=== PATIENT | male | born 1940 | race Caucasian/White ===

== ENCOUNTER 2017-05-11 13:11 | Emergency (ER) | payer MEDICARE, SELFPAY ==
[2017-05-11 13:13] VITALS: BP 150/80; PULSE 90; RESP 16; TEMP 36.7; O2SAT 98; BMI 26.6
--- NOTE | 2017-05-11 13:37 | RAD_ITS ---
STUDY: X-RAY CHEST REASON FOR EXAM: Male, 76 years old. Chest pain. TECHNIQUE: Single AP portable view of the chest. COMPARISON: Comparison is made with prior examination dated May 19, 2012. FINDINGS: EKG electrodes are seen. Hyperinflation. Scattered calcified granulomas. There is no demonstrated pleural abnormality. There is borderline cardiomegaly. Normal mediastinum and maría elena. Normal visualized pulmonary arteries. There is atherosclerotic calcification of the aortic arch with tortuosity. Normal visualized thoracic spine. Normal visualized ribs, clavicles, and shoulders. There is no demonstrated abnormality of the visualized soft tissue structures of the upper abdomen. RAD/Chest 1 View (Portable) IMPRESSION: Hyperinflation. No acute abnormality is seen. Electronically Signed: Matthias Brown MD at 14:00 EST Tel [phone], Service support ,
--- NOTE | 2017-05-11 13:37 | EKG12_ITS ---
Test Reason : CP Blood Pressure : / mmHG Vent. Rate : 089 BPM Atrial Rate : 089 BPM P-R Int : 152 ms QRS Dur : 082 ms QT Int : 372 ms P-R-T Axes : 068 007 069 degrees QTc Int : 452 ms Normal sinus rhythm Low voltage QRS (LIMB LEADS) Nonspecific ST abnormality Abnormal ECG Confirmed by TEE RM, NIDIA ([id number]), managing editor ELAINA COYLE ([id number] on 05/14/2017 1:07:50 PM Referred By: NIESHA Confirmed By:NIDIA OLIVEIRA MD
[2017-05-11 13:45] LABS: Absolute Lymphocyte Count 1.35 X10^3/ul (0.83-4.51); Absolute Neutrophil Count 2.8 X10^3/uL (2.0-7.7); Basophil# 0.08 X10^3/uL; Basophil% 1.6 % (0-1); Eosinophil# 0.14 X10^3/uL; Eosinophils% 2.9 % (0-5); Hematocrit 40.9 % (40-54); Hemoglobin 14.2 g/dl (13.0-16.5); Lymphocyte # 1.35 X10^3/ul (4.0); Lymphocyte % 27.6 % (19-41); Mean Corp Hgb Conc 34.7 g/gl (32-36); Mean Corpuscular Hgb 33.5 pg (27.0-32.0); Mean Corpuscular Volume 96.5 fL (80-94); Mean Platelet Vol. 10.8 fl (6.2-12.0); Monocyte# 0.55 X10^3/uL; Monocyte% 11.2 % (0-10); Neutrophil # 2.76 X10^3/uL (2.7-7.7); Neutrophil % 56.5 % (47-70); POSITIVE COUNT NO; POSITIVE DIFFERENTIAL NO; POSITIVE MORPHOLOGY NO; Platelet Count 229 K/mm3 (150-450); RBC Distribution Width CV 12.9 % (11.6-14.6); RBC Distribution Width SD 44.5 fl (35.1-43.9); Red Blood Count 4.24 M/mm3 (4.6-6.2); White Blood Count 4.9 K/mm3 (4.4-11.0)
--- NOTE | 2017-05-11 13:53 | ED.VISSUMM ---
- ER Visit Summary Date of Service: 05/11/17 Chief Complaint: Chest and left shoulder discomfort History of Present Illness: The patient is a 76 M last week he has had intermittent chest pain and left shoulder discomfort. Patient states the chest pain is not associated with exertion. Really not shortness of breath he has been more tired lately. He has no cardiac history. He states he has never had a cardiac cath. He has chronic shoulder pain for last 1-2 months. He says he has trouble raising his left arm over his shoulder. He has never had shoulder surgery denies any falls or trauma. 3 weeks ago or so he had influenza he said he was on prednisone at that time for wheezing and is at that time his shoulder actually felt better. He denies any hemoptysis. He denies any pleuritic chest pain. No calf pain or swelling. Physical Examination: Well-appearing older male. Vital signs are stable afebrile. Pulse ox percent on 2 L no hypoxia. HEENT exam unremarkable TMs normal. Posterior pharynx normal. Neck nontender. Lungs clear to auscultation bilaterally. Heart regular rate and rhythm no murmur. Chest wall is reproducible chest wall tenderness along the upper left chest and along the left shoulder. There is no ecchymosis or bruising. No deformity. No redness or warmth. No crepitance or subcu air. Abdomen is soft and nontender. Normal bowel sounds no peritoneal signs. He is moving all 4 extremities. He is unable to lift his left arm above his shoulder. Bilateral hands and feet are neurovascularly intact. Calves are nontender without cords or edema. Neurologically is awake and alert without focal deficits. Test Results: BC normal. BMP normal. Troponin normal. EKG sinus rhythm rate of 89 no acute abnormality. Chest x-ray chronic changes no acute process read both by myself the radiologist. Emergency Department Course and Treatment: Patient will undergo cardiac workup. He does have some reproducible chest wall pain which may be the cause of his symptoms. He also has chronic musculoskeletal shoulder pain. Treatment Plan: Javier exam at 1537 patient is doing well. He clearly has reproducible left shoulder pain. He has chronic shoulder pain history. He and I discussed getting an joint injection which she has had in the past but has not had for quite a long time. He preferred oral steroids over a steroid injection. He will be placed on prednisone 40 mg a day for 1 week. Disposition: discharge Impression: Acute chest wall pain and acute on chronic left shoulder pain This note was generated with [employer] dictation software. It may contain incorrect words, spelling, and punctuation that were not noted in review of the chart prior to signing ED Disposition - Plan for ED Patient: Chief Complaint: Chest Pain Referrals: Elmira Malcolm DO [STAFF PHYSICIAN] -
[2017-05-11 14:00] VITALS: BP 128/76; PULSE 72; RESP 16; O2SAT 97
[2017-05-11 14:07] LABS: Anion Gap 7 (5-15); BUN 14 mg/dL (7-18); Calcium,Total 8.1 mg/dL (8.5-10.1); Chloride 109 mmol/L (98-107); Creatinine, Serum 0.94 mg/dL (0.70-1.30); EST Glomerular Filtration Rate 83 mL/min (>60); Est Glom Filt Rate - Afr Amer 101 mL/min (>60); Estimated Creatinine Clearance 56.86 ml/min; Glucose 109 mg/dL (74-106); Potassium 3.6 mmol/L (3.5-5.1); Sodium Level 141 mmol/L (136-145)
[2017-05-11 15:00] VITALS: BP 139/78; PULSE 67; RESP 14; O2SAT 98
--- NOTE | 2017-05-11 15:42 | ED.DEP ---
ED Disposition - Plan for ED Patient: Disposition: Home or Assisted Living Chief Complaint: Chest Pain Instructions: ED Chest Pain Atypical Unkn Cause Prescriptions: Prednisone [Deltasone] 40 mg PO DAILY #10 tab Referrals: Elmira Malcolm DO [STAFF PHYSICIAN] - 1 Week if not improving Additional Instructions: Ice to chest wall and left shoulder. Continue current pain medications. Prednisone for inflammation in your shoulder. If not improving he may need a shoulder joint injection.
[2017-05-11 15:56] VITALS: BP 142/82; PULSE 70; RESP 16; O2SAT 97
== END 2017-05-11 15:57 | disposition home or self-care (01) ==
PROVIDERS: Emergency Provider Emergency Medicine; Family Provider Internal Medicine; PCP Internal Medicine
DX: R07.89 Other chest pain (principal); M25.512 Pain in left shoulder; G89.29 Other chronic pain; R06.00 Dyspnea, unspecified; I10 Essential (primary) hypertension; Z87.891 Personal history of nicotine dependence
CPT/HCPCS: 71045; 80048; 84484; 85025; 93005; 99284; A4216

== ENCOUNTER 2018-08-09 23:13 | Observation (INO) | payer MEDICARE, SELFPAY ==
[2018-08-09 23:15] VITALS: BP 146/112; PULSE 95; RESP 26; TEMP 36.4; O2SAT 98; BMI 27.8
[2018-08-09 23:40] VITALS: O2SAT 99
--- NOTE | 2018-08-09 23:40 | EKG12_ITS ---
Test Reason : SHORTNESS OF BREATH Blood Pressure : / mmHG Vent. Rate : 070 BPM Atrial Rate : 070 BPM P-R Int : 162 ms QRS Dur : 084 ms QT Int : 426 ms P-R-T Axes : 070 003 044 degrees QTc Int : 460 ms Normal sinus rhythm Normal ECG Confirmed by SHALONDA FRANCOIS ([id number]), make up editor JAGUAR MUKHERJEE ([id number]) on 08/12/2018 1:56:01 PM Referred By: Marcy Whittington Confirmed By:SHALONDA FRANCOIS
[2018-08-09 23:55] VITALS: BP 140/84; PULSE 69; RESP 16; O2SAT 99
[2018-08-09] MEDS: Aspirin 81 MG TAB.CHEW 324 MG PO (23:56)
[2018-08-09 23:57] VITALS: O2SAT 99
[2018-08-10] VITALS (11 sets, daily range): BP systolic 117–147; BP diastolic 63–77; PULSE 59–84; RESP 15–16; TEMP 36.4–37.1; O2SAT 95–98; BMI 26.8
[2018-08-10 00:13] LABS: Absolute Lymphocyte Count 1.86 X10^3/ul (0.83-4.51); Absolute Neutrophil Count 3.7 X10^3/uL (2.0-7.7); Basophil# 0.06 X10^3/uL; Basophil% 0.9 % (0-1); Eosinophil# 0.34 X10^3/uL; Eosinophils% 5.2 % (0-5); Hematocrit 41.9 % (40-54); Hemoglobin 14.3 g/dl (13.0-16.5); Lymphocyte # 1.86 X10^3/ul (4.0); Lymphocyte % 28.3 % (19-41); Mean Corp Hgb Conc 34.1 g/gl (32-36); Mean Corpuscular Volume 93.7 fL (80-94); Mean Platelet Vol. 10.1 fl (6.2-12.0); Monocyte# 0.56 X10^3/uL; Monocyte% 8.5 % (0-10); Neutrophil # 3.72 X10^3/uL (2.7-7.7); Neutrophil % 56.6 % (47-70); POSITIVE COUNT NO; POSITIVE DIFFERENTIAL NO; POSITIVE MORPHOLOGY NO; Platelet Count 284 K/mm3 (150-450); RBC Distribution Width CV 12.9 % (11.6-14.6); Red Blood Count 4.47 M/mm3 (4.6-6.2); White Blood Count 6.6 K/mm3 (4.4-11.0)
[2018-08-10 00:29] LABS: Anion Gap 8 (5-15); BUN 7 mg/dL (7-18); BUN/Creat Ratio 8.9 RATIO (10-20); Calcium,Total 7.7 mg/dL (8.5-10.1); Chloride 103 mmol/L (98-107); Creatinine, Serum 0.79 mg/dL (0.70-1.30); EST Glomerular Filtration Rate 102 mL/min (>60); Est Glom Filt Rate - Afr Amer 123 mL/min (>60); Glucose 54 mg/dL (74-106); Sodium Level 137 mmol/L (136-145)
--- NOTE | 2018-08-10 00:30 | ED.RN ---
DR. LAND INFORMED THAT WHEN PT WAS PUTTING ON GOWN THIS NURSE NOTICED A LARGE DARK BRUISE EXTENDING FROM UNDER RIGHT AXILLA TO WAIST. PT DENIED INJURY. DR. LAND WITH PT AT THIS TIME TO EXAM PT.
--- NOTE | 2018-08-10 00:33 | CT_ITS ---
STUDY: CT ABDOMEN AND PELVIS WITH CONTRAST REASON FOR EXAM: Male, 78 years old. Injury, bruising RADIATION DOSAGE (If Supplied By Facility): CTDIvol = ( 12.72 ) mGy, DLP = ( 1048.24 ) mGycm TECHNIQUE: Transaxial images were obtained from the dome of the diaphragm to the symphysis pubis without oral contrast. 100ML IV Isovue 300 was administered. Sagittal and coronal images were reconstructed. Individualized dose optimization techniques were used for this CT. COMPARISON: Comparison July 23, 2006 CT abdomen FINDINGS: The visualized lung bases are unremarkable. The visualized portions of the heart are within normal limits. There is mild intra and extra hepatic ductal dilatation status post cholecystectomy. There are surgical clips in the gallbladder fossa consistent with a prior cholecystectomy. There are multiple benign calcified granulomata of the spleen. Normal pancreas. Normal bilateral adrenal glands. There is mild right pelviectasis is a punctate stone in the left kidney there is minimal left pelviectasis. There is a either new visualized either hernia or diverticulum of the distal esophagus. This is new since prior study. Collectively the stomach within the hiatus measures approximately 4 x 2 cm. There are distended loops of small bowel present some with mild wall thickening in the left upper quadrant. There is tortuosity in the abdomen with small bowel that is similar to prior study with greater distention in the right upper quadrant. The largest of which are in the right to midline abdomen with extensive tortuosity. There is moderate stool in the colon. There is a midline somewhat high riding mobile appearing cecum. The appendix is visualized and appears normal. Aorta is partially calcified. There is calcification of the bilateral renal arteries Normal inferior vena cava. Normal retroperitoneum. There is a thick walled appearance of the bladder. The bladder measures up to 5.5 mm. There are prostatic calcifications. Normal abdominal wall. There is degenerative change in the cervical spine. There is a broad disc bulge L4-L5 with mild neural foramina narrowing facet arthropathy. At L5-S1 there is a minimal broad disc bulge with mild neural foramina narrowing no significant central stenosis. CT/Abdomen/Pelvis W IV Cont ONLY IMPRESSION: There is a pattern of multiple distended loops of small bowel some with wall thickening. Findings suspicious for small bowel ileus possibly related to enteritis and/or potentially early small bowel obstruction. Mild to moderate constipation. Floppy or mobile cecum suggested. Likely contributing to the tortuosity of the small bowel loops. Wall thickening of the bladder consider cystitis cannot entirely exclude atypia. Intra and extra hepatic duct dilatation status post cholecystectomy. New hiatal hernia and/or potentially a diverticulum within the distal esophagus since prior study July 23, 2006. Electronically Signed: Sola Llamas MD at 1:44 EDT Tel , Service support ,
--- NOTE | 2018-08-10 00:33 | CT_ITS ---
We are attempting to reach an attending provider to discuss findings. An addendum with communication details will be sent when the communication is complete. STUDY: CT CHEST WITH CONTRAST REASON FOR EXAM: Male, 78 years old. Right-sided bruising, injury RADIATION DOSAGE (If Supplied By Facility): CTDIvol = ( 12.72 ) mGy, DLP = ( 1048.24 ) mGycm TECHNIQUE: Transaxial imaging was performed following intravenous administration of 100ML IV Isovue 300. Individualized dose optimization techniques were used for this CT. COMPARISON: None. FINDINGS: There are few scattered emphysematous blebs there is no evidence of acute focal consolidation pleural effusion or pneumothorax. There is a calcified granuloma within the right upper lobe periphery. There is no demonstrated pleural abnormality. Normal heart and pericardium. There are a few nonspecific subcentimeter mediastinal lymph nodes. Normal hilar regions. Normal enhanced pulmonary arteries. There is atherosclerotic tortuosity of the aortic arch and descending thoracic aorta. There is mild chronic appearing loss of height at the level of T8. There is visualized right-sided chest wall edema. There is focal hyperdensity within the right-sided latissimus dorsi muscle enlargement. Mild intrahepatic ductal dilatation or gallbladder. There is a hiatal hernia now measuring 2.5 x 4.0 cm new since prior study. CT/Chest WITH Contrast IMPRESSION: Interval visualization of a small to moderate hiatal hernia. This measures approximately 3.5 x 4.0 cm. Evidence of a granulomatous disease. Scattered emphysematous blebs no evidence of focal infiltrate. Mild right chest wall edema. Intramuscular hematoma/age-indeterminate hemorrhage, measuring approximately 4.0 x 2.3 cm, right side latissimus dorsi muscle. Recommend correlation with trauma history. Mild intra and extra hepatic ductal dilatation postoperative change right upper quadrant. Electronically Signed: Sola Llamas MD at 1:31 EDT Tel , Service support ,
[2018-08-10 00:45] LABS: Prothrombin Time (Protime)PT. 13.3 SECONDS (11.7-14.9)
[2018-08-10 00:46] LABS: Partial Thromboplast Time 30.9 Seconds (24.1-36.2)
[2018-08-10] MEDS: Potassium Chloride 10mEq/100mL 10 MEQ/100 ML IV.SOLN. 100 MEQ IV BOLUS ×4 (02:08→06:12)
--- NOTE | 2018-08-10 02:10 | ED.DCSUM_ITS ---
- ER Visit Summary Date of Service: 08/10/18 Chief Complaint: Shortness of breath History of Present Illness: The patient is a 78 M who presents with shortness of breath. He woke with this suddenly from sleep about 30 minutes ago. He felt hot although he was not diaphoretic. He states that he just felt uncomfortable. No chest pain. He had mild nausea without vomiting. He has had some recent cold symptoms with congestion and rhinorrhea. He complains of some pain in his right upper chest and back that is worse with coughing. No vomiting. No diarrhea. Physical Examination: Afebrile initial blood pressure 146/112 vitals otherwise unremarkable Moist mucous membranes Heart regular rate and rhythm Lungs are clear without rales rhonchi wheezes Abdomen soft 2+ radial pulses Alert Test Results: EKG shows normal sinus rhythm at a rate of 70. CBC BMP notable for potassium 3.0. Normal coagulation studies. Troponin negative. CT of the chest shows a hiatal hernia as well as a right latissimus dorsi hemorrhage. CT the abdomen pelvis shows multiple distended loops of small bowel ileus versus small bowel obstruction. Multiple incidental findings as well, see report for details. Emergency Department Course and Treatment: At the time my initial exam patient was fully dressed. Given his initial history I was concerned for potential cardiac etiology and he was given aspirin and laboratory studies EKG and chest x-ray ordered. After the patient was changed she was noted to have bruising along the right chest and right flank. At this point the decision was made to send him for CTs of the chest and abdomen. I was called by radiology with the above findings. Although he does have a latissimus dorsi hemorrhage/hematoma this does not appear to be actively bleeding and he is hemodynamically stable. In regards to his multiple distended loops of small bowel the cause of this is unclear. He does not have vomiting. He has been having some intermittent left upper quadrant abdominal pain for some time. Patient was discussed with the hospitalist and will be admitted. Treatment Plan: [] Disposition: Admit Impression: Latissimus dorsi hematoma Abnormal abdominal CT Hypokalemia This note was generated with [employer] dictation software. It may contain incorrect words, spelling, and punctuation that were not noted in review of the chart prior to signing ED Disposition - Plan for ED Patient: Referrals: Karla Barton MD [Primary Care Provider] -
--- NOTE | 2018-08-10 02:15 | HP.PCM_ITS ---
Problem List (1) Chest pain Status: Acute Qualifiers: Chest pain type: unspecified Qualified Code(s): R07.9 - Chest pain, unspecified (2) Dyspnea Status: Acute Qualifiers: Dyspnea type: unspecified Qualified Code(s): R06.00 - Dyspnea, unspecified (3) Chest wall hematoma Status: Acute Qualifiers: Encounter type: initial encounter Laterality: unspecified laterality Qualified Code(s): S20.219A - Contusion of unspecified front wall of thorax, ini tial encounter (4) HTN (hypertension) Status: Chronic Qualifiers: Hypertension type: essential hypertension Qualified Code(s): I10 - Essential (primary) hypertension (5) Dementia Status: Chronic Qualifiers: Dementia type: unspecified type Dementia behavioral disturbance: without behavioral disturbance Qualified Code(s): F03.90 - Unspecified dementia without behavioral disturbance (6) Anxiety and depression Status: Chronic (7) Former tobacco use Status: Chronic (8) GERD (gastroesophageal reflux disease) Status: Chronic Qualifiers: Esophagitis presence: esophagitis presence not specified Qualified Code(s): K21.9 - Gastro-esophageal reflux disease without esophagitis History of Present Illness Date of Admission: 08/10/18 Chief Complaint: Dyspnea The patient is a 78 y/o M w/ PMHx: EtOH Abuse, HTN, Anxiety and Depression, Former Tobacco use, Dementia Unclear type with unclear behavioral disturbance history, GERD who presents to the [facility] ED on 08/10/18 with very cobbled history of waking early this morning with dyspnea with generalized malaise, not feeling well, states he had had a recent upper respiratory infection but had been improving with then upon ED presentation following evaluation by ED physician onset of some midsternal nonradiating dull aching chest discomfort rated 4 out of 10 with no worsened dyspnea, diaphoresis associated but had had nausea earlier upon awakening which is since resolved. Patient does have a notable staged ecchymoses to the right lateral flank and cannot give a history as to the reason or event causing the bruising. Reviewed CT abdomen and pelvis results with him and he states that he has been told on a prior scan that he had distended loops of bowel and some thickening and denies any recent anorexia, emesis, worsened market abdominal distention or pain. He states he ate a hamburger for dinner the evening prior with no issue. Work-up in the ED included T 97.5, heart rate 95, BP initially 146/112, respiratory rate initially 26, 98% on room air--> improvement to BP 128/77, respiratory rate 16, 96% on room air, unremarkable CBC, unremarkable coags, BMP with potassium 3, glucose 54, troponin less than 0.015, CT chest with interval visualization of a small to moderate hiatal hernia measuring 3.5 x 4.0 cm, evidence of granulomatous disease, scattered emphysematous blebs with no evidence of focal infiltrate, mild chest wall edema, intramuscular hematoma age-indeterminate measuring 4 x 2.3 cm, right sided latissimus dorsi muscle, mild intra-and extrahepatic ductal dilation postoperative change in the right upper quadrant, CT abdomen pelvis with multiple distended loops of small bowel some with wall thickening, suspicious for small bowel ileus versus early small bowel obstruction, mild to moderate constipation, floppier mobile cecum, wall thickening of the bladder, intra-and extrahepatic duct dilatation status post cholecystectomy, no hiatal hernia and or potentially diverticulum within the distal esophagus nonvisualized on prior 2006 study. In the ED patient ministered aspirin 324 mg p.o. x1 and 40 mEq potassium supplementation. Past Medical History Past Medical History (Chronic Problems): Chronic Problems HTN (hypertension) (Chronic) Dementia (Chronic) Anxiety and depression (Chronic) Former tobacco use (Chronic) GERD (gastroesophageal reflux disease) (Chronic) Allergies levofloxacin [From Levaquin] Allergy (Verified 08/09/18 23:14) Vomiting Home Medications: Ambulatory Orders Medication Instructions Recorded Amlodipine [Norvasc] 5 mg PO DAILY 05/11/17 Donepezil HCl 10 mg PO DAILY 05/11/17 Pantoprazole Sodium [Protonix] 40 mg PO DAILY 05/11/17 Surgical History: - - Hiatal hernia repair, cholecystectomy, right ankle surgery. Psychiatric History: Anxiety, Depression Lives: Alone Smoking Status: Former smoker - Patient quit approximately 25 years ago with prior to this 1 pack/day cigarette tobacco use. Tobacco Use: Non-smoker Alcohol: Occasional - Patient notes that he drinks at least a 12 pack of beer weekly and from discussion denies alcohol abuse but suspicions given patient history of falls, cannot give timeline does not recall hurting himself. Drugs: None - *Family History Maternal History Items: - - Patient denies any market maternal or paternal family history including heart disease, diabetes or cancer. Paternal History Items: - - Patient denies any market maternal or paternal family history including heart disease, diabetes or cancer. Review of Systems Constitutional: Reports: Malaise, Weakness, Fatigue. Denies: Chills, Fever, Weight Change HEENT: Denies: Head Aches, Sinus Congestion, Sinus Drainage Cardiovascular: Reports: Chest Pain. Denies: Light Headedness, Orthopnea, Palpitations, Syncope Respiratory: Reports: Shortness of Breath, Shortness of breath at rest. Denies: Cough, Shortness of breath upon exertion, Sputum production, Wheezing Gastrointestinal: Reports: Nausea. Denies: Abdominal Pain, Vomiting Genitourinary: Denies: Dysuria Musculoskeletal: Denies: Joint Pain, Joint Tenderness Skin: Reports: Skin Changes. Denies: Rash, Wounds Neurological: Denies: Numbness, Tingling, Focal weakness Psychiatric: Reports: Anxiety, Depression. Denies: Homicidal Ideations, Suicidal Ideations Hematologic/ Lymphatic: Reports: Easy Bruising, Easy Bleeding VTE Information - Inpt Only VTE Present on Admission: No VTE Mechan Device Prophylaxis: SCD's VTE Pharm Prophylaxis ordered?: Yes Patient Problems: Active and Suspected Problems Dyspnea (Acute) Chest wall hematoma (Acute) Chest pain (Acute) Subjective: Seated upright in ED bed, mildly fatigued, notes chest discomfort at this time 4 out of 10, but appears comfortable and some reproducible discomfort with palpation. Objective: Physical Examination: General: awake, alert, oriented x 3 and cooperative, seated upright in the ED bed, no acute distress, does note some chest discomfort, worsened with palpation of the region. Skin: normal color, turgor, no icterus, cyanosis except notable staged ecchymoses to the right lateral flank/back HEENT: AT/NC, EOMI, PERRLA, mildly dry MM, no carotid bruits or JVD noted. Lungs: Diffusely diminished, greater bilateral bases, moderate effort, no rales, ronchi or wheezing. Heart: Regular rate and rhythm; no gallop, rub audible. Abdomen: soft, NTTP, mildly distended although he notes this is his baseline, normal BS, no HSM; however, habitus makes examination difficult. Extremities: no cyanosis, clubbing, or edema. Neurological: patient awake, alert, oriented x 3 but does have underlying dementia noted; cognitive function suspect baseline intact; pupils equally reactive to light and accomodation; cranial nerves II-XII grossly normal, moving all 4 extremities, no focal deficits, strength moderately global degree secondary to acute presentation. Psychiatric: affect appears fatigued, no acute evidence of depressive or anxiety feelings. - Physical Exam Vital Signs Temp Pulse Resp BP Pulse Ox 97.5 F L 84 16 128/77 H 96 08/09/18 23:15 08/10/18 01:49 08/10/18 01:49 08/10/18 01:49 08/10/18 01:49 Oxygen Delivery Method Room Air Weight: 161 lb 13.109 oz Body Mass Index (BMI) 27.8 Laboratory Tests Past 24 Hrs 08/09/18 08/09/18 08/10/18 23:59 23:59 00:00 WBC 6.6 RBC 4.47 L Hgb 14.3 Hct 41.9 MCV 93.7 MCH 32.0 MCHC 34.1 RDW 12.9 RDW Differential 43.0 Plt Count 284 MPV 10.1 Immature Gran % (Auto) 0.500 Neut % (Auto) 56.6 Lymph % (Auto) 28.3 [place] % (Auto) 8.5 Eos % (Auto) 5.2 H Baso % (Auto) 0.9 Absolute Neuts (auto) 3.7 Absolute Lymphs (auto) 1.86 Total Counted Not Reportable PT 13.3 INR 1.0 APTT 30.9 Sodium 137 Potassium 3.0 L Chloride 103 Carbon Dioxide 26.0 Anion Gap 8 BUN 7 Creatinine 0.79 Estim Creat Clear Calc 51.80 Est GFR (MDRD) Af Amer 123 Est GFR (MDRD) Non-Af 102 BUN/Creatinine Ratio 8.9 L Glucose 54 L Calcium 7.7 L Troponin I < 0.015 Assessment/Plan All Active Problems Dyspnea (Acute) Chest wall hematoma (Acute) Chest pain (Acute) The patient is a 78 y/o M w/ PMHx: EtOH Abuse, HTN, Anxiety and Depression, Former Tobacco use, Dementia Unclear type with unclear behavioral disturbance history, GERD who presents to the [facility] ED on 08/10/18 with very cobbled history of waking early this morning with dyspnea with generalized malaise, not feeling well, states he had had a recent upper respiratory infection but had been improving with then upon ED presentation following evaluation by ED physician onset of some midsternal nonradiating dull aching chest discomfort rated 4 out of 10 with no worsened dyspnea, diaphoresis associated but had had nausea earlier upon awakening which is since resolved. (1) Dyspnea, Chest Pain: Work-up in the ED included T 97.5, heart rate 95, BP initially 146/112, respiratory rate initially 26, 98% on room air--> improvement to BP 128/77, respiratory rate 16, 96% on room air, unremarkable CBC, unremarkable coags, BMP with potassium 3, glucose 54, troponin less than 0.015, CT chest with interval visualization of a small to moderate hiatal hernia measuring 3.5 x 4.0 cm, evidence of granulomatous disease, scattered emphysematous blebs with no evidence of focal infiltrate, mild chest wall edema, intramuscular hematoma age-indeterminate measuring 4 x 2.3 cm, right sided latissimus dorsi muscle, mild intra-and extrahepatic ductal dilation postoperative change in the right upper quadrant, CT abdomen pelvis with multiple distended loops of small bowel some with wall thickening, suspicious for small bowel ileus versus early small bowel obstruction, mild to moderate constipation, floppier mobile cecum, wall thickening of the bladder, intra-and extrahepatic duct dilatation status post cholecystectomy, no hiatal hernia and or potentially diverticulum within the distal esophagus nonvisualized on prior 2006 study, EKG with sinus rhythm with no acute evidence of ischemia. Will admit to PCU, place on a monitored bed, cycle cardiac enzymes, repeat AM EKG, proceed with a.m. cardiac stress echocardiogram if repeat EKGs and enzymes remain unremarkable, add ATC duoneb and PRN albuterol. ASA, NG, morphine. FLP in AM, mag pending. (2) Mechanical Fall, Unclear Timeline w/ Chest wall injury: CT w/ mild right chest wall edema, intramuscular hematoma/age-indeterminate hemorrhage, measuring approximately 4.0 x 2.3 cm, right side latissimus dorsi muscle with no evidence of active bleeding and likely old from appearance. Suspect related to patient underlying alcohol abuse. PT, OT, case management consulted. (3) Hypokalemia: Admission K+ 3.0, supplementation given, repeat level in AM. (4) ? EtOH Abuse: Patient states that he only drinks 1 case of beer weekly but again very poor historian, unable to give history of recent severe fall with notable bruising, staged to the right lateral flank. Will maintain on CIWA protocol to be cautious, MVI, thiamine and folic acid. Mag, phosphorus levels pending with supplementation as needed. Case management consulted. (5) Hypertension: Continue home regimen including Norvasc, PRN hydralazine. (6) Anxiety and depression: Not on regimen, encourage outpatient appropriate follow-up. (7) Dementia, unclear type with unclear behavioral disturbance history: We will continue home donepezil regimen. (8) Former tobacco use: Encouraged continued tobacco cessation. (9) GERD: PPI. (10) DVT prophylaxis: SCD, Lovenox. Code Visit OBSV E&M: [id number] Initial observation care L3
[2018-08-10 03:49] LABS: Magnesium 2.2 mg/dL (1.6-2.6)
--- NOTE | 2018-08-10 05:55 | STEWCON_ITS ---
Reason For Study: Chest Pain Stress Results Protocol: Ean Protocol Maximum Predicted HR: 143 bpm Target HR: 122 bpm % Maximum Predicted HR: 106 % DurationHeart Rate Stage (mm:ss) (bpm) BP Comment Baseline 81 124/70No Chest Pain; Diluted Definity 2 ML Given Ean Protocol Stage I 3:00 129 156/64No Chest Pain; Mild Dyspnea Ean Protocol Stage II 2:01 151 174/60No Chest Pain; Mild to Moderate Dyspnea Recovery 87 134/68No Chest Pain Stress Duration: 5:01 mm:ss Maximum Stress HR: 151 bpm METS: 7 Baseline Echocardiogram Findings The estimated ejection fraction is 55 %. Stress Echo Wall motion Data Resting WM Intermediate WM Stress WM Resting Wall Motion Wall Motion Stress No regional wall motion No regional wall motion abnormalities noted. abnormalities noted. EKG Data The baseline ECG displays normal sinus rhythm. The patient exercised according to the regular Ean protocol for a total duration of 5:01. The maximum heart rate attained was 171 beats per minute. This was 119% of maximum predicted heart rate. The patient exercised into stage 2 of the Ean protocol. During stress, there were no ST or T wave changes noted to suggest ischemia. No clinical angina was noted. Interpretation Summary The estimated ejection fraction is 55 %. Normal, adequate, treadmill echocardiogram. Negative for ischemia by EKG and echocardiographic anterior. No anginal symptoms noted. Rare PVCs noted. Below average exercise capacity for age. Final LVEF of 65%. Decreased sensitivity due to poor echo windows requiring Definity agent. Patient tolerated procedure well. Test terminated due to dyspnea. No complications. The study was technically difficult. Contrast injection was performed. Ordering Physician: Marcy Whittington Referring Physician: Jay Jay Garcia Performed By: Aylin Gallegos, ANILA, RVT
--- NOTE | 2018-08-10 05:55 | EKG12_ITS ---
Test Reason : CP ADMIT Blood Pressure : / mmHG Vent. Rate : 061 BPM Atrial Rate : 061 BPM P-R Int : 150 ms QRS Dur : 082 ms QT Int : 456 ms P-R-T Axes : 061 011 036 degrees QTc Int : 459 ms Normal sinus rhythm Normal ECG Confirmed by TEE RM, NIDIA ([id number]), research editor JAGUAR MUKHERJEE ([id number]) on 08/14/2018 2:01:33 PM Referred By: Marcy Whittington Confirmed By:NIDIA OLIVEIRA MD
[2018-08-10] MEDS: Aspirin 81 MG TAB.CHEW PO (06:14)
[2018-08-10] MEDS: Pantoprazole Sodium 40 MG Tablet PO (06:14)
[2018-08-10] MEDS: Ipratropium/Albuterol Sulfate 3 ML AMPUL.NEB INHALATION (07:29)
[2018-08-10 07:32] LABS: Absolute Lymphocyte Count 1.52 X10^3/ul (0.83-4.51); Absolute Neutrophil Count 2.5 X10^3/uL (2.0-7.7); Basophil# 0.04 X10^3/uL; Basophil% 0.8 % (0-1); Eosinophil# 0.26 X10^3/uL; Eosinophils% 5.5 % (0-5); Hematocrit 40.8 % (40-54); Hemoglobin 13.8 g/dl (13.0-16.5); Lymphocyte # 1.52 X10^3/ul (4.0); Lymphocyte % 32.2 % (19-41); Mean Corp Hgb Conc 33.8 g/gl (32-36); Mean Corpuscular Hgb 31.9 pg (27.0-32.0); Mean Corpuscular Volume 94.4 fL (80-94); Mean Platelet Vol. 10.5 fl (6.2-12.0); Monocyte# 0.41 X10^3/uL; Monocyte% 8.7 % (0-10); Neutrophil # 2.48 X10^3/uL (2.7-7.7); Neutrophil % 52.6 % (47-70); Platelet Count 257 K/mm3 (150-450); RBC Distribution Width SD 45.2 fl (35.1-43.9); Red Blood Count 4.32 M/mm3 (4.6-6.2); White Blood Count 4.7 K/mm3 (4.4-11.0)
[2018-08-10 07:54] LABS: POSITIVE COUNT NO; POSITIVE DIFFERENTIAL NO; POSITIVE MORPHOLOGY NO
[2018-08-10 07:55] LABS: ALB/GLOB Ratio 1.1 RATIO (0.9-2.4); AST(SGOT) 23 U/L (15-37); Alanine Aminotransfer ALT/SGPT 19 U/L (16-61); Albumin, Serum 3.2 g/dL (3.2-5.0); Alkaline Phosphatase 79 U/L (45-117); Anion Gap 5 (5-15); BUN 6 mg/dL (7-18); BUN/Creat Ratio 9.3 RATIO (10-20); Calcium,Total 7.7 mg/dL (8.5-10.1); Chloride 110 mmol/L (98-107); Cholesterol 139 mg/dL (200); Creatinine, Serum 0.64 mg/dL (0.70-1.30); EST Glomerular Filtration Rate 128 mL/min (>60); Est Glom Filt Rate - Afr Amer 155 mL/min (>60); Globulin 2.9 g/dL (2.2-4.2); Glucose 78 mg/dL (74-106); High Density Lipoprotein 50 mg/dL; Potassium 4.1 mmol/L (3.5-5.1); Protein, Total 6.1 g/dL (6.4-8.2); Sodium Level 141 mmol/L (136-145); Triglycerides 77 mg/dL; Very Low Density Lipoprotein 15 mg/dL (5-40)
[2018-08-10] MEDS: Multivitamins,Ther W-Minerals Tablet 1 TABLET PO (09:45)
[2018-08-10] MEDS: amLODIPine 5 MG Tablet PO (09:45)
[2018-08-10] MEDS: Thiamine Hydrochloride 100 MG Tablet PO (09:45)
[2018-08-10] MEDS: Donepezil HCl 10 MG Tablet PO (09:45)
[2018-08-10] MEDS: Folic Acid 1 MG Tablet PO (09:46)
[2018-08-10] MEDS: Enoxaparin 40 MG/0.4 ML Syringe SC (10:22)
[2018-08-10 10:30] LABS: Bedside Glucose 94 mg/dL (70-110)
--- NOTE | 2018-08-10 10:40 | DCINST_ITS ---
- Discharge Diagnoses Current Active Problems: Current Active and Chronic Problems Dyspnea (Acute) Chest wall hematoma (Acute) HTN (hypertension) (Chronic) Dementia (Chronic) Anxiety and depression (Chronic) Former tobacco use (Chronic) GERD (gastroesophageal reflux disease) (Chronic) Chest pain (Acute) You will use the following diet at home:: No restrictions Discharge Activity: Return to Normal Activity Call your doctor if you observe: Shortness of breath, Dizziness, Fainting spells, Chest pain Allergies/Adverse Reactions: Allergies levofloxacin [From Levaquin] Allergy (Verified 08/09/18 23:14) Vomiting Medications to take at Discharge Amlodipine [Norvasc] 5 mg PO DAILY 05/11/17 Donepezil HCl 10 mg PO DAILY 05/11/17 Pantoprazole Sodium [Protonix] 40 mg PO DAILY 05/11/17 Primary Care Physician: Karla Barton MD [Primary Care Provider] - Please follow up with your Primary Care Physician in: 1 Week Test Results: Test results from this visit will be discussed in further detail at your follow- up appointment, if applicable. Proposed Discharge Date: 08/10/18
--- NOTE | 2018-08-10 10:40 | PCM.DC.SUM ---
<Nirmala Carter - Last Filed: 08/10/18 11:02> Discharge Date and Diagnosis Date of Admission: 08/10/18 Date of Discharge: 08/10/18 - Primary Discharge Diagnosis Active and Suspected Problems 1. Chest pain, dyspnea- ACS ruled out. Musculoskeletal in nature with possible anxiety contributing. 2. Recent mechanical fall with chest wall injury resulting in right side latissimus dorsi muscle hematoma 3. Hypokalemia, resolved 4. Alcohol abuse 5. Anxiety/depression 6. Hypertension 7. Former tobacco use 8. Dementia, without behavioral disturbance 9. GERD - Secondary Discharge Diagnosis Chronic Problems HTN (hypertension) (Chronic) Dementia (Chronic) Anxiety and depression (Chronic) Former tobacco use (Chronic) GERD (gastroesophageal reflux disease) (Chronic) Hospital Course and Treatment Imaging Results: Diagnostic Data Abdomen/Pelvis CT 08/10/18 00:33 IMPRESSION: There is a pattern of multiple distended loops of small bowel some with wall thickening. Findings suspicious for small bowel ileus possibly related to enteritis and/or potentially early small bowel obstruction. Mild to moderate constipation. Floppy or mobile cecum suggested. Likely contributing to the tortuosity of the small bowel loops. Wall thickening of the bladder consider cystitis cannot entirely exclude atypia. Intra and extra hepatic duct dilatation status post cholecystectomy. New hiatal hernia and/or potentially a diverticulum within the distal esophagus since prior study July 23, 2006. Electronically Signed: Sola Llamas MD at 1:44 EDT Tel , Service support , Chest CT 08/10/18 00:33 IMPRESSION: Interval visualization of a small to moderate hiatal hernia. This measures approximately 3.5 x 4.0 cm. Evidence of a granulomatous disease. Scattered emphysematous blebs no evidence of focal infiltrate. Mild right chest wall edema. Intramuscular hematoma/age-indeterminate hemorrhage, measuring approximately 4.0 x 2.3 cm, right side latissimus dorsi muscle. Recommend correlation with trauma history. Mild intra and extra hepatic ductal dilatation postoperative change right upper quadrant. Electronically Signed: Sola Llamas MD at 1:31 EDT Tel , Service support , ADDENDUM: 08/10/18 0218 IMPRESSION: Interval visualization of a small to moderate hiatal hernia. This measures approximately 3.5 x 4.0 cm. Evidence of a granulomatous disease. Scattered emphysematous blebs no evidence of focal infiltrate. Mild right chest wall edema. Intramuscular hematoma/age-indeterminate hemorrhage, measuring approximately 4.0 x 2.3 cm, right side latissimus dorsi muscle. Recommend correlation with trauma history. Mild intra and extra hepatic ductal dilatation postoperative change right upper quadrant. N.B. : The above information has been verbally conveyed by Sola Llamas MD to Cheikh Warner MD, on 08/10/2018 02:11:32 (ET). Electronically Signed: Sola Llamas MD at 1:31 EDT Tel , Service support , Operations: None Procedures: None Summary of Care Provided: The patient is a 78 year old M admitted 08/10/2017 due to dyspnea. 1. Chest pain, dyspnea- ACS ruled out. Musculoskeletal in nature with possible anxiety contributing. Troponin negative. EKG without ST-T changes. Patient underwent stress echo which was negative for ischemia. Patient feels his anxiety may be contributing to his symptoms as he has had similar presenting symptoms in the past versus musculoskeletal in nature given recent fall with chest wall injury. Follow-up with primary care physician in 1 week. 2. Recent mechanical fall with chest wall injury resulting in right side latissimus dorsi muscle hematoma-CT of chest on admission shows small to moderate hiatal hernia. No focal infiltrate. Intramuscular hematoma, age indeterminate hemorrhage measuring approximately 4 x 2.3 cm, right side latissimus dorsi muscle. No active bleeding. Patient denies significant right-sided chest pain with palpitation. Follow-up with primary care as noted above. 3. Hypokalemia, resolved-replace per protocol, resolved. 4. Alcohol abuse-patient reports drinking 1 case of beer per week, however suspect he may be using more than this. Declines assistance with cessation at this time. 5. Anxiety/depression-not on regimen. 6. Hypertension-stable, continue Norvasc regimen. 7. Former tobacco use-encouraged continued cessation. 8. Dementia, without behavioral disturbance-continue donepezil regimen. 9. GERD-continue PPI. Patient seen and examined prior to discharge. Physical assessment as noted below. Patient is stable for discharge with follow up recommendations as noted above. This patient was seen by ANUPAM Martin under the supervision of Dr. Tracey. - Physical Exam General: Alert, Oriented x3, Cooperative HEENT: Atraumatic, PERRLA, EOMI, Normocephalic Neck: Supple, No JVD, Negative Carotid Bruits Lungs: Clear to auscultation, Normal air movement Cardiovascular: Regular rate, Regular Rhythm, Normal S1, Normal S2, No murmurs Abdomen: Bowel Sounds Present, Soft, Non Tender, Non-Distended Extremities: No clubbing, No cyanosis, No edema, Capillary Refill Less than 3 Seconds Skin: No rashes, No breakdown Musculoskeletal: No Tenderness to Palpation of Joints or Extremities Neurological: Cranial nerves II-XII grossly intact, Neuro grossly intact Psych/Mental Status: Normal Affect, Appropriate Vital Signs Temp Pulse Resp BP Pulse Ox 98.1 F 80 16 139/75 H 97 08/10/18 08:30 08/10/18 08:30 08/10/18 08:30 08/10/18 08:30 08/10/18 08:30 Oxygen Delivery Method Room Air Weight: 156 lb 1.396 oz Body Mass Index (BMI) 26.8 Intake and Output for Last 24 Hours 08/08/18 08/09/18 08/10/18 23:59 23:59 23:59 Intake Total 475 / 475 Balance 475 / 475 Laboratory Tests Past 24 Hrs 08/09/18 08/09/18 08/10/18 23:59 23:59 00:00 WBC 6.6 RBC 4.47 L Hgb 14.3 Hct 41.9 MCV 93.7 MCH 32.0 MCHC 34.1 RDW 12.9 RDW Differential 43.0 Plt Count 284 MPV 10.1 Immature Gran % (Auto) 0.500 Neut % (Auto) 56.6 Lymph % (Auto) 28.3 [place] % (Auto) 8.5 Eos % (Auto) 5.2 H Baso % (Auto) 0.9 Absolute Neuts (auto) 3.7 Absolute Lymphs (auto) 1.86 Total Counted Not Reportable PT 13.3 INR 1.0 APTT 30.9 Sodium 137 Potassium 3.0 L Chloride 103 Carbon Dioxide 26.0 Anion Gap 8 BUN 7 Creatinine 0.79 Estim Creat Clear Calc 51.80 Est GFR (MDRD) Af Amer 123 Est GFR (MDRD) Non-Af 102 BUN/Creatinine Ratio 8.9 L Glucose 54 L Calcium 7.7 L Phosphorus Magnesium Total Bilirubin AST ALT Alkaline Phosphatase Troponin I < 0.015 Total Protein Albumin Globulin Albumin/Globulin Ratio Triglycerides Cholesterol LDL Cholesterol VLDL Cholesterol HDL Cholesterol 08/10/18 08/10/18 08/10/18 03:16 03:16 03:16 WBC RBC Hgb Hct MCV MCH MCHC RDW RDW Differential Plt Count MPV Immature Gran % (Auto) Neut % (Auto) Lymph % (Auto) [place] % (Auto) Eos % (Auto) Baso % (Auto) Absolute Neuts (auto) Absolute Lymphs (auto) Total Counted PT INR APTT Sodium Potassium Chloride Carbon Dioxide Anion Gap BUN Creatinine Estim Creat Clear Calc Est GFR (MDRD) Af Amer Est GFR (MDRD) Non-Af BUN/Creatinine Ratio Glucose Calcium Phosphorus 3.0 Magnesium 2.2 Total Bilirubin AST ALT Alkaline Phosphatase Troponin I < 0.015 Total Protein Albumin Globulin Albumin/Globulin Ratio Triglycerides Cholesterol LDL Cholesterol VLDL Cholesterol HDL Cholesterol 08/10/18 08/10/18 08/10/18 06:34 06:34 06:34 WBC 4.7 RBC 4.32 L Hgb 13.8 Hct 40.8 MCV 94.4 H MCH 31.9 MCHC 33.8 RDW 13.0 RDW Differential 45.2 H Plt Count 257 MPV 10.5 Immature Gran % (Auto) 0.200 Neut % (Auto) 52.6 Lymph % (Auto) 32.2 [place] % (Auto) 8.7 Eos % (Auto) 5.5 H Baso % (Auto) 0.8 Absolute Neuts (auto) 2.5 Absolute Lymphs (auto) 1.52 Total Counted Not Reportable PT INR APTT Sodium 141 Potassium 4.1 Chloride 110 H Carbon Dioxide 26.0 Anion Gap 5 BUN 6 L Creatinine 0.64 L Estim Creat Clear Calc 51.80 Est GFR (MDRD) Af Amer 155 Est GFR (MDRD) Non-Af 128 BUN/Creatinine Ratio 9.3 L Glucose 78 Calcium 7.7 L Phosphorus Magnesium Total Bilirubin 0.70 AST 23 ALT 19 Alkaline Phosphatase 79 Troponin I < 0.015 Total Protein 6.1 L Albumin 3.2 Globulin 2.9 Albumin/Globulin Ratio 1.1 Triglycerides 77 Cholesterol 139 LDL Cholesterol 74 VLDL Cholesterol 15 HDL Cholesterol 50 POC Glucose 08/10/18 10:21 POC Glucose 94 Discharge Diet: No Restrictions Discharge Activity: Return to Normal Activity Call your doctor if you observe: Shortness of breath, Dizziness, Fainting spells, Chest pain Home Medications: Medications to take at Discharge Amlodipine [Norvasc] 5 mg PO DAILY 05/11/17 Donepezil HCl 10 mg PO DAILY 05/11/17 Pantoprazole Sodium [Protonix] 40 mg PO DAILY 05/11/17 Primary Care Physician: Karla Barton MD [Primary Care Provider] - Please follow up with your Primary Care Physician in: 1 Week Disposition: Home Minutes spent on discharge:: 35 Patient Condition:: Stable Medical Necessity - Tobacco Use Smoking Status: Former smoker Tobacco Use: Non-smoker Meaningful Use Info Meaningful Use Diagnoses (Choose all that apply): None applicable <Ezra Tracey - Last Filed: 08/10/18 11:26> Discharge Date and Diagnosis - Secondary Discharge Diagnosis Chronic Problems HTN (hypertension) (Chronic) Dementia (Chronic) Anxiety and depression (Chronic) Former tobacco use (Chronic) GERD (gastroesophageal reflux disease) (Chronic) Hospital Course and Treatment Imaging Results: 08/10/18 05:55 Stress Test Echo W/Contrast [ECHO] AM (NON MEDS) Summary of Care Provided: The patient was seen in conjunction with ANUPAM Martin . I have independently interviewed and examined the patient and reviewed pertinent historical, laboratory, and other data. Please refer to ANUPAM Martin note for details of this patient's presentation, findings, and recommendations. I have reviewed ANUPAM Martin note and concur with documented findings. In brief, patient is a 78-year-old male admitted with chest pain. His comorbidities include alcohol use depression with anxiety as well as essential hypertension. Patient was placed on a monitored bed [place] was ruled out with serial cardiac enzymes patient underwent a stress echo which was negative for stress-induced ischemia. Of note patient had recently experienced a mechanical fall CT of the chest demonstrated age indeterminate hemorrhage measuring approximately 4 x 2.3 cm, right side latissimus dorsi muscle informed and instructed to follow-up with PCP for subsequent management Hospital course: As documented above by Nirmala Carter NP?C - Physical Exam Vital Signs Temp Pulse Resp BP Pulse Ox 98.1 F 80 16 139/75 H 97 08/10/18 08:30 08/10/18 08:30 08/10/18 08:30 08/10/18 08:30 08/10/18 08:30 Oxygen Delivery Method Room Air Weight: 70.8 kg Body Mass Index (BMI) 26.8 Intake and Output for Last 24 Hours 08/08/18 08/09/18 08/10/18 23:59 23:59 23:59 Intake Total 475 / 475 Balance 475 / 475 Laboratory Tests Past 24 Hrs 08/09/18 08/09/18 08/10/18 23:59 23:59 00:00 WBC 6.6 RBC 4.47 L Hgb 14.3 Hct 41.9 MCV 93.7 MCH 32.0 MCHC 34.1 RDW 12.9 RDW Differential 43.0 Plt Count 284 MPV 10.1 Immature Gran % (Auto) 0.500 Neut % (Auto) 56.6 Lymph % (Auto) 28.3 [place] % (Auto) 8.5 Eos % (Auto) 5.2 H Baso % (Auto) 0.9 Absolute Neuts (auto) 3.7 Absolute Lymphs (auto) 1.86 Total Counted Not Reportable PT 13.3 INR 1.0 APTT 30.9 Sodium 137 Potassium 3.0 L Chloride 103 Carbon Dioxide 26.0 Anion Gap 8 BUN 7 Creatinine 0.79 Estim Creat Clear Calc 51.80 Est GFR (MDRD) Af Amer 123 Est GFR (MDRD) Non-Af 102 BUN/Creatinine Ratio 8.9 L Glucose 54 L Calcium 7.7 L Phosphorus Magnesium Total Bilirubin AST ALT Alkaline Phosphatase Troponin I < 0.015 Total Protein Albumin Globulin Albumin/Globulin Ratio Triglycerides Cholesterol LDL Cholesterol VLDL Cholesterol HDL Cholesterol 08/10/18 08/10/18 08/10/18 03:16 03:16 03:16 WBC RBC Hgb Hct MCV MCH MCHC RDW RDW Differential Plt Count MPV Immature Gran % (Auto) Neut % (Auto) Lymph % (Auto) [place] % (Auto) Eos % (Auto) Baso % (Auto) Absolute Neuts (auto) Absolute Lymphs (auto) Total Counted PT INR APTT Sodium Potassium Chloride Carbon Dioxide Anion Gap BUN Creatinine Estim Creat Clear Calc Est GFR (MDRD) Af Amer Est GFR (MDRD) Non-Af BUN/Creatinine Ratio Glucose Calcium Phosphorus 3.0 Magnesium 2.2 Total Bilirubin AST ALT Alkaline Phosphatase Troponin I < 0.015 Total Protein Albumin Globulin Albumin/Globulin Ratio Triglycerides Cholesterol LDL Cholesterol VLDL Cholesterol HDL Cholesterol 08/10/18 08/10/18 08/10/18 06:34 06:34 06:34 WBC 4.7 RBC 4.32 L Hgb 13.8 Hct 40.8 MCV 94.4 H MCH 31.9 MCHC 33.8 RDW 13.0 RDW Differential 45.2 H Plt Count 257 MPV 10.5 Immature Gran % (Auto) 0.200 Neut % (Auto) 52.6 Lymph % (Auto) 32.2 [place] % (Auto) 8.7 Eos % (Auto) 5.5 H Baso % (Auto) 0.8 Absolute Neuts (auto) 2.5 Absolute Lymphs (auto) 1.52 Total Counted Not Reportable PT INR APTT Sodium 141 Potassium 4.1 Chloride 110 H Carbon Dioxide 26.0 Anion Gap 5 BUN 6 L Creatinine 0.64 L Estim Creat Clear Calc 51.80 Est GFR (MDRD) Af Amer 155 Est GFR (MDRD) Non-Af 128 BUN/Creatinine Ratio 9.3 L Glucose 78 Calcium 7.7 L Phosphorus Magnesium Total Bilirubin 0.70 AST 23 ALT 19 Alkaline Phosphatase 79 Troponin I < 0.015 Total Protein 6.1 L Albumin 3.2 Globulin 2.9 Albumin/Globulin Ratio 1.1 Triglycerides 77 Cholesterol 139 LDL Cholesterol 74 VLDL Cholesterol 15 HDL Cholesterol 50 POC Glucose 08/10/18 10:21 POC Glucose 94 Code Visit OBSV E&M: [id number] Observation care discharge
--- NOTE | 2018-08-10 10:44 | DS.PCM_ITS ---
<Nirmala Carter - Last Filed: 08/10/18 11:02> Discharge Date and Diagnosis Date of Admission: 08/10/18 Date of Discharge: 08/10/18 - Primary Discharge Diagnosis Active and Suspected Problems 1. Chest pain, dyspnea- ACS ruled out. Musculoskeletal in nature with possible anxiety contributing. 2. Recent mechanical fall with chest wall injury resulting in right side latissimus dorsi muscle hematoma 3. Hypokalemia, resolved 4. Alcohol abuse 5. Anxiety/depression 6. Hypertension 7. Former tobacco use 8. Dementia, without behavioral disturbance 9. GERD - Secondary Discharge Diagnosis Chronic Problems HTN (hypertension) (Chronic) Dementia (Chronic) Anxiety and depression (Chronic) Former tobacco use (Chronic) GERD (gastroesophageal reflux disease) (Chronic) Hospital Course and Treatment Imaging Results: Diagnostic Data Abdomen/Pelvis CT 08/10/18 00:33 IMPRESSION: There is a pattern of multiple distended loops of small bowel some with wall thickening. Findings suspicious for small bowel ileus possibly related to enteritis and/or potentially early small bowel obstruction. Mild to moderate constipation. Floppy or mobile cecum suggested. Likely contributing to the tortuosity of the small bowel loops. Wall thickening of the bladder consider cystitis cannot entirely exclude atypia. Intra and extra hepatic duct dilatation status post cholecystectomy. New hiatal hernia and/or potentially a diverticulum within the distal esophagus since prior study July 23, 2006. Electronically Signed: Sola Llamas MD at 1:44 EDT Tel , Service support , Chest CT 08/10/18 00:33 IMPRESSION: Interval visualization of a small to moderate hiatal hernia. This measures approximately 3.5 x 4.0 cm. Evidence of a granulomatous disease. Scattered emphysematous blebs no evidence of focal infiltrate. Mild right chest wall edema. Intramuscular hematoma/age-indeterminate hemorrhage, measuring approximately 4.0 x 2.3 cm, right side latissimus dorsi muscle. Recommend correlation with trauma history. Mild intra and extra hepatic ductal dilatation postoperative change right upper quadrant. Electronically Signed: Sola Llamas MD at 1:31 EDT Tel , Service support , ADDENDUM: 08/10/18 0218 IMPRESSION: Interval visualization of a small to moderate hiatal hernia. This measures approximately 3.5 x 4.0 cm. Evidence of a granulomatous disease. Scattered emphysematous blebs no evidence of focal infiltrate. Mild right chest wall edema. Intramuscular hematoma/age-indeterminate hemorrhage, measuring approximately 4.0 x 2.3 cm, right side latissimus dorsi muscle. Recommend correlation with trauma history. Mild intra and extra hepatic ductal dilatation postoperative change right upper quadrant. N.B. : The above information has been verbally conveyed by Sola Llamas MD to Cheikh Warner MD, on 08/10/2018 02:11:32 (ET). Electronically Signed: Sola Llamas MD at 1:31 EDT Tel , Service support , Operations: None Procedures: None Summary of Care Provided: The patient is a 78 year old M admitted 08/10/2017 due to dyspnea. 1. Chest pain, dyspnea- ACS ruled out. Musculoskeletal in nature with possible anxiety contributing. Troponin negative. EKG without ST-T changes. Patient underwent stress echo which was negative for ischemia. Patient feels his anxiety may be contributing to his symptoms as he has had similar presenting symptoms in the past versus musculoskeletal in nature given recent fall with chest wall injury. Follow-up with primary care physician in 1 week. 2. Recent mechanical fall with chest wall injury resulting in right side latissimus dorsi muscle hematoma-CT of chest on admission shows small to moderate hiatal hernia. No focal infiltrate. Intramuscular hematoma, age indeterminate hemorrhage measuring approximately 4 x 2.3 cm, right side latissimus dorsi muscle. No active bleeding. Patient denies significant right- sided chest pain with palpitation. Follow-up with primary care as noted above. 3. Hypokalemia, resolved-replace per protocol, resolved. 4. Alcohol abuse-patient reports drinking 1 case of beer per week, however suspect he may be using more than this. Declines assistance with cessation at this time. 5. Anxiety/depression-not on regimen. 6. Hypertension-stable, continue Norvasc regimen. 7. Former tobacco use-encouraged continued cessation. 8. Dementia, without behavioral disturbance-continue donepezil regimen. 9. GERD-continue PPI. Patient seen and examined prior to discharge. Physical assessment as noted below. Patient is stable for discharge with follow up recommendations as noted above. This patient was seen by ANUPAM Martin under the supervision of Dr. Tracey. - Physical Exam General: Alert, Oriented x3, Cooperative HEENT: Atraumatic, PERRLA, EOMI, Normocephalic Neck: Supple, No JVD, Negative Carotid Bruits Lungs: Clear to auscultation, Normal air movement Cardiovascular: Regular rate, Regular Rhythm, Normal S1, Normal S2, No murmurs Abdomen: Bowel Sounds Present, Soft, Non Tender, Non-Distended Extremities: No clubbing, No cyanosis, No edema, Capillary Refill Less than 3 Seconds Skin: No rashes, No breakdown Musculoskeletal: No Tenderness to Palpation of Joints or Extremities Neurological: Cranial nerves II-XII grossly intact, Neuro grossly intact Psych/Mental Status: Normal Affect, Appropriate Vital Signs Temp Pulse Resp BP Pulse Ox 98.1 F 80 16 139/75 H 97 08/10/18 08:30 08/10/18 08:30 08/10/18 08:30 08/10/18 08:30 08/10/18 08:30 Oxygen Delivery Method Room Air Weight: 156 lb 1.396 oz Body Mass Index (BMI) 26.8 Intake and Output for Last 24 Hours 08/08/18 08/09/18 08/10/18 23:59 23:59 23:59 Intake Total 475 / 475 Balance 475 / 475 Laboratory Tests Past 24 Hrs 08/09/18 08/09/18 08/10/18 23:59 23:59 00:00 WBC 6.6 RBC 4.47 L Hgb 14.3 Hct 41.9 MCV 93.7 MCH 32.0 MCHC 34.1 RDW 12.9 RDW Differential 43.0 Plt Count 284 MPV 10.1 Immature Gran % (Auto) 0.500 Neut % (Auto) 56.6 Lymph % (Auto) 28.3 Walsh % (Auto) 8.5 Eos % (Auto) 5.2 H Baso % (Auto) 0.9 Absolute Neuts (auto) 3.7 Absolute Lymphs (auto) 1.86 Total Counted Not Reportable PT 13.3 INR 1.0 APTT 30.9 Sodium 137 Potassium 3.0 L Chloride 103 Carbon Dioxide 26.0 Anion Gap 8 BUN 7 Creatinine 0.79 Estim Creat Clear Calc 51.80 Est GFR (MDRD) Af Amer 123 Est GFR (MDRD) Non-Af 102 BUN/Creatinine Ratio 8.9 L Glucose 54 L Calcium 7.7 L Phosphorus Magnesium Total Bilirubin AST ALT Alkaline Phosphatase Troponin I < 0.015 Total Protein Albumin Globulin Albumin/Globulin Ratio Triglycerides Cholesterol LDL Cholesterol VLDL Cholesterol HDL Cholesterol 08/10/18 08/10/18 08/10/18 03:16 03:16 03:16 WBC RBC Hgb Hct MCV MCH MCHC RDW RDW Differential Plt Count MPV Immature Gran % (Auto) Neut % (Auto) Lymph % (Auto) Walsh % (Auto) Eos % (Auto) Baso % (Auto) Absolute Neuts (auto) Absolute Lymphs (auto) Total Counted PT INR APTT Sodium Potassium Chloride Carbon Dioxide Anion Gap BUN Creatinine Estim Creat Clear Calc Est GFR (MDRD) Af Amer Est GFR (MDRD) Non-Af BUN/Creatinine Ratio Glucose Calcium Phosphorus 3.0 Magnesium 2.2 Total Bilirubin AST ALT Alkaline Phosphatase Troponin I < 0.015 Total Protein Albumin Globulin Albumin/Globulin Ratio Triglycerides Cholesterol LDL Cholesterol VLDL Cholesterol HDL Cholesterol 08/10/18 08/10/18 08/10/18 06:34 06:34 06:34 WBC 4.7 RBC 4.32 L Hgb 13.8 Hct 40.8 MCV 94.4 H MCH 31.9 MCHC 33.8 RDW 13.0 RDW Differential 45.2 H Plt Count 257 MPV 10.5 Immature Gran % (Auto) 0.200 Neut % (Auto) 52.6 Lymph % (Auto) 32.2 Walsh % (Auto) 8.7 Eos % (Auto) 5.5 H Baso % (Auto) 0.8 Absolute Neuts (auto) 2.5 Absolute Lymphs (auto) 1.52 Total Counted Not Reportable PT INR APTT Sodium 141 Potassium 4.1 Chloride 110 H Carbon Dioxide 26.0 Anion Gap 5 BUN 6 L Creatinine 0.64 L Estim Creat Clear Calc 51.80 Est GFR (MDRD) Af Amer 155 Est GFR (MDRD) Non-Af 128 BUN/Creatinine Ratio 9.3 L Glucose 78 Calcium 7.7 L Phosphorus Magnesium Total Bilirubin 0.70 AST 23 ALT 19 Alkaline Phosphatase 79 Troponin I < 0.015 Total Protein 6.1 L Albumin 3.2 Globulin 2.9 Albumin/Globulin Ratio 1.1 Triglycerides 77 Cholesterol 139 LDL Cholesterol 74 VLDL Cholesterol 15 HDL Cholesterol 50 POC Glucose 08/10/18 10:21 POC Glucose 94 Discharge Diet: No Restrictions Discharge Activity: Return to Normal Activity Call your doctor if you observe: Shortness of breath, Dizziness, Fainting spells, Chest pain Home Medications: Medications to take at Discharge Amlodipine [Norvasc] 5 mg PO DAILY 05/11/17 Donepezil HCl 10 mg PO DAILY 05/11/17 Pantoprazole Sodium [Protonix] 40 mg PO DAILY 05/11/17 Primary Care Physician: Karla Barton MD [Primary Care Provider] - Please follow up with your Primary Care Physician in: 1 Week Disposition: Home Minutes spent on discharge:: 35 Patient Condition:: Stable Medical Necessity - Tobacco Use Smoking Status: Former smoker Tobacco Use: Non-smoker Meaningful Use Info Meaningful Use Diagnoses (Choose all that apply): None applicable <Ezra Tracey - Last Filed: 08/10/18 11:26> Discharge Date and Diagnosis - Secondary Discharge Diagnosis Chronic Problems HTN (hypertension) (Chronic) Dementia (Chronic) Anxiety and depression (Chronic) Former tobacco use (Chronic) GERD (gastroesophageal reflux disease) (Chronic) Hospital Course and Treatment Imaging Results: 08/10/18 05:55 Stress Test Echo W/Contrast [ECHO] AM (NON MEDS) Summary of Care Provided: The patient was seen in conjunction with ANUPAM Martin . I have independently interviewed and examined the patient and reviewed pertinent historical, laboratory, and other data. Please refer to ANUPAM Martin note for details of this patient's presentation, findings, and recommendations. I have reviewed ANUPAM Martin note and concur with documented findings. In brief, patient is a 78-year-old male admitted with chest pain. His comorbidities include alcohol use depression with anxiety as well as essential hypertension. Patient was placed on a monitored bed [place] was ruled out with serial cardiac enzymes patient underwent a stress echo which was negative for stress-induced ischemia. Of note patient had recently experienced a mechanical fall CT of the chest demonstrated age indeterminate hemorrhage measuring approximately 4 x 2.3 cm, right side latissimus dorsi muscle informed and instructed to follow-up with PCP for subsequent management Hospital course: As documented above by Nirmala Carter NP?C - Physical Exam Vital Signs Temp Pulse Resp BP Pulse Ox 98.1 F 80 16 139/75 H 97 08/10/18 08:30 08/10/18 08:30 08/10/18 08:30 08/10/18 08:30 08/10/18 08:30 Oxygen Delivery Method Room Air Weight: 70.8 kg Body Mass Index (BMI) 26.8 Intake and Output for Last 24 Hours 08/08/18 08/09/18 08/10/18 23:59 23:59 23:59 Intake Total 475 / 475 Balance 475 / 475 Laboratory Tests Past 24 Hrs 08/09/18 08/09/18 08/10/18 23:59 23:59 00:00 WBC 6.6 RBC 4.47 L Hgb 14.3 Hct 41.9 MCV 93.7 MCH 32.0 MCHC 34.1 RDW 12.9 RDW Differential 43.0 Plt Count 284 MPV 10.1 Immature Gran % (Auto) 0.500 Neut % (Auto) 56.6 Lymph % (Auto) 28.3 Walsh % (Auto) 8.5 Eos % (Auto) 5.2 H Baso % (Auto) 0.9 Absolute Neuts (auto) 3.7 Absolute Lymphs (auto) 1.86 Total Counted Not Reportable PT 13.3 INR 1.0 APTT 30.9 Sodium 137 Potassium 3.0 L Chloride 103 Carbon Dioxide 26.0 Anion Gap 8 BUN 7 Creatinine 0.79 Estim Creat Clear Calc 51.80 Est GFR (MDRD) Af Amer 123 Est GFR (MDRD) Non-Af 102 BUN/Creatinine Ratio 8.9 L Glucose 54 L Calcium 7.7 L Phosphorus Magnesium Total Bilirubin AST ALT Alkaline Phosphatase Troponin I < 0.015 Total Protein Albumin Globulin Albumin/Globulin Ratio Triglycerides Cholesterol LDL Cholesterol VLDL Cholesterol HDL Cholesterol 08/10/18 08/10/18 08/10/18 03:16 03:16 03:16 WBC RBC Hgb Hct MCV MCH MCHC RDW RDW Differential Plt Count MPV Immature Gran % (Auto) Neut % (Auto) Lymph % (Auto) Walsh % (Auto) Eos % (Auto) Baso % (Auto) Absolute Neuts (auto) Absolute Lymphs (auto) Total Counted PT INR APTT Sodium Potassium Chloride Carbon Dioxide Anion Gap BUN Creatinine Estim Creat Clear Calc Est GFR (MDRD) Af Amer Est GFR (MDRD) Non-Af BUN/Creatinine Ratio Glucose Calcium Phosphorus 3.0 Magnesium 2.2 Total Bilirubin AST ALT Alkaline Phosphatase Troponin I < 0.015 Total Protein Albumin Globulin Albumin/Globulin Ratio Triglycerides Cholesterol LDL Cholesterol VLDL Cholesterol HDL Cholesterol 08/10/18 08/10/18 08/10/18 06:34 06:34 06:34 WBC 4.7 RBC 4.32 L Hgb 13.8 Hct 40.8 MCV 94.4 H MCH 31.9 MCHC 33.8 RDW 13.0 RDW Differential 45.2 H Plt Count 257 MPV 10.5 Immature Gran % (Auto) 0.200 Neut % (Auto) 52.6 Lymph % (Auto) 32.2 Walsh % (Auto) 8.7 Eos % (Auto) 5.5 H Baso % (Auto) 0.8 Absolute Neuts (auto) 2.5 Absolute Lymphs (auto) 1.52 Total Counted Not Reportable PT INR APTT Sodium 141 Potassium 4.1 Chloride 110 H Carbon Dioxide 26.0 Anion Gap 5 BUN 6 L Creatinine 0.64 L Estim Creat Clear Calc 51.80 Est GFR (MDRD) Af Amer 155 Est GFR (MDRD) Non-Af 128 BUN/Creatinine Ratio 9.3 L Glucose 78 Calcium 7.7 L Phosphorus Magnesium Total Bilirubin 0.70 AST 23 ALT 19 Alkaline Phosphatase 79 Troponin I < 0.015 Total Protein 6.1 L Albumin 3.2 Globulin 2.9 Albumin/Globulin Ratio 1.1 Triglycerides 77 Cholesterol 139 LDL Cholesterol 74 VLDL Cholesterol 15 HDL Cholesterol 50 POC Glucose 08/10/18 10:21 POC Glucose 94 Code Visit OBSV E&M: 99134 Observation care discharge
--- NOTE | 2018-08-10 11:47 | CASEMGMT ---
SW met w/pt and family briefly in room, as referral received for pt's alcohol abuse. Pt's daughters Cindy and Jessenia in room, along w/a grandson. Pt states lives alone, daughter actually states that pt's son lives w/him. Pt states he is independent still with ADL's including personal care, med management, cooking, home management. Pt uses no DME. Pt confirms PCP is Dr. Barton, uses [facility] for pharmacy. Pt and family anticipate no homegoing needs at this time. SW asked pt about alcohol use, he does not feel that his alcohol use is an issue. SW asked family, they also do not feel that the alcohol use is an issue. Family and pt deny any needs at this time. SW is available should any needs arise. INEZ Sharma
== END 2018-08-10 09:06 | disposition home or self-care (01) ==
LOC: ED 23:58 → PCU 08-10 02:28
PROVIDERS: Admitting Provider Family Medicine; Emergency Provider Emergency Medicine; Family Provider Internal Medicine; PCP Internal Medicine; Referring Provider Family Medicine; Visit Provider Internal Medicine
DX: S20.211A Contusion of right front wall of thorax, initial encounter (principal); R07.89 Other chest pain; R06.00 Dyspnea, unspecified; E87.6 Hypokalemia; W18.30XA Fall on same level, unspecified, initial encounter; Y93.9 Activity, unspecified; Y92.9 Unspecified place or not applicable; K21.9 Gastro-esophageal reflux disease without esophagitis; F03.90 Unspecified dementia, unspecified severity, without behavioral disturbance, psychotic disturbance, mood disturbance, and anxiety; I10 Essential (primary) hypertension; Z79.899 Other long term (current) drug therapy; Z87.891 Personal history of nicotine dependence
CPT/HCPCS: 36415; 71260; 74177; 80048; 80053; 80061; 82962; 83735; 84100; 84484; 85025; 85610; 85730; 93005; 93017; 93350; 94640; 96360; 96361; 96372; 99218; 99285; J7030; Q9957; Q9967; A4216; C8928; G0378

== ENCOUNTER 2018-11-30 10:48 | Emergency (ER) | payer MEDICARE, SELFPAY ==
[2018-08-10 02:48] VITALS: BMI 26.8
[2018-11-30 10:48] VITALS: BP 161/80; PULSE 100; RESP 16; TEMP 36.7; O2SAT 98; BMI 26.2
[2018-11-30 11:00] VITALS: BP 157/79; PULSE 81; RESP 11; O2SAT 98
--- NOTE | 2018-11-30 11:06 | EKG12_ITS ---
Test Reason : WEAKNESS Blood Pressure : / mmHG Vent. Rate : 088 BPM Atrial Rate : 088 BPM P-R Int : 152 ms QRS Dur : 086 ms QT Int : 400 ms P-R-T Axes : 068 000 067 degrees QTc Int : 484 ms Normal sinus rhythm Prolonged QT Abnormal ECG Confirmed by TONI RM, FAZAL ([id number]), telegraph editor DREAD ALATORRE ([id number]) on 12/03/2018 10:44:45 AM Referred By: Confirmed By:SANGITA MUÑOZ MD
--- NOTE | 2018-11-30 11:06 | RAD_ITS ---
STUDY: X-RAY CHEST REASON FOR EXAM: Male, 78 years old. Weakness. TECHNIQUE: Single AP portable view of the chest. COMPARISON: 05/11/2017. FINDINGS: The lungs are clear and expanded. There is no demonstrated pleural abnormality. Normal size heart. Normal mediastinum and maría elena. Normal visualized pulmonary arteries. There is atherosclerotic tortuosity of the aortic arch and descending thoracic aorta. The bony structures are unchanged. There is no demonstrated abnormality of the visualized soft tissue structures of the upper abdomen. RAD/Chest 1 View (Portable) IMPRESSION: No active pulmonary disease. Electronically Signed: Natanael Hicks MD at 11:31 EDT Tel , Service support ,
[2018-11-30 11:15] LABS: Absolute Lymphocyte Count 0.94 X10^3/uL (0.83-4.51); Absolute Neutrophil Count 4.4 X10^3/uL (2.0-7.7); Basophil# 0.09 X10^3/uL; Basophil% 1.4 % (0-1); Eosinophil# 0.15 X10^3/uL; Eosinophils% 2.4 % (0-5); Hematocrit 47.3 % (40-54); Hemoglobin 16.3 g/dL (13.0-16.5); Lymphocyte # 0.94 X10^3/ul (4.0); Lymphocyte % 14.8 % (19-41); Mean Corp Hgb Conc 34.5 g/dL (32-36); Mean Corpuscular Hgb 32.9 pg (27.0-32.0); Mean Corpuscular Volume 95.6 fL (80-94); Mean Platelet Vol. 9.7 fl (6.2-12.0); Monocyte# 0.72 X10^3/uL; Monocyte% 11.3 % (0-10); NRBC Flagged by Analyzer 0 % (0-5); Neutrophil # 4.44 X10^3/uL (2.7-7.7); Neutrophil % 69.6 % (47-70); Platelet Count 272 K/mm3 (150-450); RBC Distribution Width CV 12.3 % (11.6-14.6); RBC Distribution Width SD 43.2 fl (35.1-43.9); Red Blood Count 4.95 M/mm3 (4.6-6.2); White Blood Count 6.4 K/mm3 (4.4-11.0)
[2018-11-30] MEDS: Ondansetron 4 MG/2 ML Vial IV (11:27)
[2018-11-30 11:34] LABS: ALB/GLOB Ratio 1.1 RATIO (0.9-2.4); AST(SGOT) 35 U/L (15-37); Alanine Aminotransfer ALT/SGPT 28 U/L (16-61); Albumin, Serum 3.8 g/dL (3.2-5.0); Alkaline Phosphatase 109 U/L (45-117); Anion Gap 10 (5-15); BUN 12 mg/dL (7-18); BUN/Creat Ratio 14.7 RATIO (10-20); Calcium,Total 8.5 mg/dL (8.5-10.1); Chloride 99 mmol/L (98-107); Creatinine, Serum 0.82 mg/dL (0.70-1.30); EST Glomerular Filtration Rate 97 mL/min (>60); Est Glom Filt Rate - Afr Amer 117 mL/min (>60); Estimated Creatinine Clearance 63.17 ml/min; Globulin 3.6 g/dL (2.2-4.2); Glucose 101 mg/dL (74-106); Lipase 83 U/L (73-393); Potassium 3.5 mmol/L (3.5-5.1); Protein, Total 7.4 g/dL (6.4-8.2); Sodium Level 133 mmol/L (136-145)
[2018-11-30 11:40] LABS: Bacteria 0 SEEN /hpf (None Seen); Mucous, Urine 0 SEEN /hpf (<or=2+); Red Blood Cells-Urine 0 SEEN /hpf (0-5); Squamous Epithelial Cells - UA 0 SEEN /hpf (0-5); White Blood Cells 0 SEEN /hpf (0-5)
[2018-11-30 11:41] LABS: Color, Urine Yellow (Yellow); Glucose, Dipstick Normal (Normal); Leukocyte Esterase-Dipstick Negative /ul (Negative); Nitrite-Dipstick Negative (Negative); Occult Blood-Urine Negative /ul (Negative); Protein-Dipstick 15 mg/dl (Negative); Specific Gravity, Urine 1.015 (1.002-1.030); Urine Bilirubin Dipstick Negative (Negative); Urine Clarity Clear (Clear); Urine Urobilinogen Normal (Normal)
[2018-11-30 11:44] LABS: Ketone-Dipstick 150 mg/dl (Negative)
--- NOTE | 2018-11-30 11:48 | ED.RN ---
LAB CALLS WITH CRITICAL RESULT, URINE KETONES GREATER THAN 150, DR. POWERS MADE AWARE.
--- NOTE | 2018-11-30 12:07 | ED.VISSUMM ---
- ER Visit Summary Date of Service: 11/30/18 Chief Complaint: Weakness History of Present Illness: The patient is a [address] Barton. He reports that he has weakness that began yesterday. Is gradually increase. He denies any fever or chills. Denies a sore throat or cough. Denies chest pain or shortness of breath. He does report that he has had aching epigastric pain for the past 2 days. He has been nauseated and had dry heaves. No diarrhea. His last bowel was today. No melena or hematochezia. No dysuria frequency. Patient reports he does have a history of a hiatal hernia that he had repair performed on. Physical Examination: Vitals: Stable. Afebrile. General: Well-nourished and well-developed. Head: Normocephalic atraumatic. Neck: Supple, no lymphadenopathy. No JVD. Nontender. Cardiovascular: Regular rate and rhythm. No murmurs. Respiratory: No respiratory distress. Clear to auscultation bilaterally. Abdominal: Soft, mild epigastric tenderness to palpation, nondistended, normal bowel sounds. No guarding, rebound, or peritoneal signs. Back: Nontender. Extremities: Nontender, no edema. Skin: Normal color, no rash. Neurologic: Alert and oriented ?3. Cranial nerves II through XII are intact. Normal strength and sensation. Psych: Normal affect. Test Results: EKG is sinus at 88 with a QTC of 484. It is otherwise unchanged from July. Troponin is negative. UA is normal. LFTs show total bili 1.7. Lipase is normal. Chem-7 shows a sodium 133. CBC shows leukocytes 15 monocytes of 11., Monoxide level is 0. Chest x-ray shows no acute disease. Emergency Department Course and Treatment: Patient was given a dose of Zofran IV. He is given a 500 cc bolus of normal saline. He is resting comfortably. Treatment Plan: This time I had a discussion the patient I do not have an explanation for his weakness. He is able to ambulate about the emergency department in no distress and without difficulty. He will be discharged instructions follow Dr. Barton in 2 days if not improving. Return to the emergency department for any worsening symptoms. Disposition: To home in improved and stable condition. Impression: 1. Weakness, uncertain cause. This note was generated with Dragon dictation software. It may contain incorrect words, spelling, and punctuation that were not noted in review of the chart prior to signing ED Disposition - Plan for ED Patient: Disposition: Home or Assisted Living Instructions: WEAKNESS, Unk Cause Prescriptions: Ondansetron [Zofran Odt] 4 mg PO Q8H PRN PRN #10 tab PRN Reason: Nausea Prescription Printed Referrals: Karla Barton MD [Primary Care Provider] - 2 Days
[2018-11-30 12:24] VITALS: BP 139/74; PULSE 71; RESP 16; O2SAT 98
--- NOTE | 2018-11-30 12:24 | ED.RN ---
IV DC'ED, CATHETER INTACT, SMALL GAUZE DRESSING PLACED. DISCHARGE INSTRUCTIONS GIVEN TO AND REVIEWED WITH PATIENT. PATIENT DENIES QUESTIONS OR CONCERNS AND VOICES UNDERSTANDING OF DISCHARGE INSTRUCTIONS. PT AMBULATES OUT OF ROOM WITHOUT DIFFICULTY.
== END 2018-11-30 12:25 | disposition home or self-care (01) ==
LOC: ED 11:25
PROVIDERS: Emergency Provider Emergency Medicine; Family Provider Internal Medicine; PCP Internal Medicine
DX: R53.1 Weakness (principal); R11.2 Nausea with vomiting, unspecified; R10.9 Unspecified abdominal pain; I10 Essential (primary) hypertension; K44.9 Diaphragmatic hernia without obstruction or gangrene; F10.10 Alcohol abuse, uncomplicated; Y90.9 Presence of alcohol in blood, level not specified
CPT/HCPCS: 71045; 80053; 81001; 82375; 83690; 84484; 85025; 93005; 96361; 96374; 99284; J7040; A4216; J2405

== ENCOUNTER → 2020-01-27 11:02 | Outpatient (CLI) | payer MEDICARE, SELFPAY | PROVIDERS: PCP Internal Medicine; Referring Provider Nurse Practitioner; Visit Provider Nurse Practitioner | DX: Z20.828 Contact with and (suspected) exposure to other viral communicable diseases (principal) | CPT/HCPCS: 87635; C9803; U0003 ==

== ENCOUNTER 2020-08-26 08:30 | Emergency (ER) | payer MEDICARE, SELFPAY ==
[2020-08-26 08:31] VITALS: BP 161/78; PULSE 96; RESP 17; TEMP 36.8; O2SAT 96; BMI 26.6
[2020-08-26 08:33] VITALS: BP 161/78; PULSE 96; RESP 17; TEMP 36.8; O2SAT 96
--- NOTE | 2020-08-26 08:49 | EKG12_ITS ---
Test Reason : SOB Blood Pressure : / mmHG Vent. Rate : 084 BPM Atrial Rate : 084 BPM P-R Int : 150 ms QRS Dur : 082 ms QT Int : 398 ms P-R-T Axes : 068 -16 064 degrees QTc Int : 470 ms Sinus rhythm with marked sinus arrhythmia Otherwise normal ECG Confirmed by BLESSING RM, CHAD ([id number]), film or videotape editor JAGUAR MUKHERJEE ([id number]) on 08/27/2020 10:20:04 AM Referred By: ANABELLA Confirmed By:CHAD FUNK MD
--- NOTE | 2020-08-26 08:51 | EDS_ITS ---
HPI History of Present Illness Chief Complaint: Cold Sx Narrative Narrative: 80-year-old male patient of Dr. Barton complains of a cough began 5 days ago. Is productive of brown sputum without blood. He denies fever or chills. Does report that he has severe shortness of breath. This gets worse during coughing episodes. There is no change with exertion. It is mild currently. He has a mild sore throat and clear rhinorrhea. He has chest pain with coughing only. He denies chest pain otherwise. He has a mild headache and myalgias. He also complains of generalized weakness. Patient has not had a Covid vaccine. He denies sick contacts. He does wear a mask when he goes out. PFSH PFS Home Medications amlodipine 5 mg PO DAILY 05/11/17 [History Last Taken Unknown] donepezil 10 mg PO DAILY 05/11/17 [History Last Taken Unknown] pantoprazole 40 mg PO DAILY 05/11/17 [History Last Taken Unknown] ondansetron 4 mg PO Q8H PRN PRN #10 tab 11/30/18 [Rx Last Taken Unknown] sertraline 25 mg PO DAILY 11/30/18 [History Last Taken Unknown] albuterol sulfate [Ventolin HFA] 2 puff INHALATION Q4H PRN PRN #1 inhaler 08/26/20 [Rx Last Taken Unknown] doxycycline monohydrate 100 mg PO BID #14 cap 08/26/20 [Rx Last Taken Unknown] prednisone 40 mg PO DAILY #10 tab 08/26/20 [Rx Last Taken Unknown] Allergy/AdvReac Type Severity Reaction Status Date / Time levofloxacin [From Levaquin] Allergy Vomiting Verified 08/26/20 08:33 Social History Smoking Status: Former smoker ROS ROS ED Constitutional Constitutional ED: Denies chills, fever(s) or sweats Eyes Eyes: Denies change in vision ENT ENT ED: Reports rhinorrhea and sore throat Cardiovascular Cardiovascular: Reports chest pain Respiratory/Chest Respiratory/Chest: Reports cough and dyspnea; Denies dyspnea on exertion Gastrointestinal Gastrointestinal: Denies abdominal pain, diarrhea, melena, nausea or vomiting Genitourinary Genitourinary ED: Denies dysuria or urinary frequency Musculoskeletal Musculoskeletal: Reports myalgias Integumentary Denies rash Neurologic Neurologic: Reports headache(s); Denies paresthesias or weakness EXAM Physical Exam Const Vital Signs: 08/26/20 08:31 08/26/20 08:33 08/26/20 11:10 Temperature 98.2 F 98.2 F Temperature Source Temporal Temporal Pulse Rate 96 96 79 Respiratory Rate 17 17 29 H Respiratory Pattern Tachypnea Blood Pressure 161/78 H 161/78 H Blood Pressure Mean 105 105 Pulse Ox 96 96 Oxygen Delivery Method Room Air Room Air 08/26/20 11:36 Temperature Temperature Source Pulse Rate Respiratory Rate 18 Respiratory Pattern Blood Pressure 157/98 H Blood Pressure Mean Pulse Ox 98 Oxygen Delivery Method Positive well nourished and well developed General Appearance ED: well developed HEENT Reports normocephalic and head/scalp atraumatic Eyes PERRL Neck no lymphadenopathy, supple and no JVD General: Negative for tenderness Resp normal respiratory effort and clear to auscultation bilaterally Cardio regular rate, regular rhythm and no murmurs GI normal to inspection, nondistended, normoactive bowel sounds and non-tender GI Narrative: No guarding, rebound, or peritoneal signs. Palpation: soft Back/Spine Back/Spine Narrative: Nontender. Extremity General Extremety ED: Negative for edema or tenderness General Extremity: Negative for edema Neuro oriented x3, CN's II-XII intact bilaterally and no sensory deficits noted Sensorium / Orientation: alert Motor Exam: strength 5/5 throughout Psych mental status grossly normal Skin no rashes or lesions noted [facility] Lab Data Labs: Laboratory Results - last 24 hr 08/26/20 08/26/20 08/26/20 09:15 09:15 09:15 WBC 5.5 RBC 4.39 L Hgb 14.8 Hct 43.1 MCV 98.2 H MCH 33.7 H MCHC 34.3 RDW Std Deviation 44.2 H RDW Coeff of Fay 12.3 Plt Count 259 MPV 10.9 Immature Gran % (Auto) 0.400 Neut % (Auto) 65.7 Lymph % (Auto) 15.9 L Miner % (Auto) 13.7 H Eos % (Auto) 3.4 Baso % (Auto) 0.9 Absolute Neuts (auto) 3.6 Absolute Lymphs (auto) 0.88 Nucleated RBC % 0 Sodium 139 Potassium 3.5 Chloride 105 Carbon Dioxide 28.0 Anion Gap 6 BUN 6 L Creatinine 0.78 Estim Creat Clear Calc 52.10 Est GFR (MDRD) Af Amer 123 Est GFR (MDRD) Non-Af 102 BUN/Creatinine Ratio 7.7 L Glucose 138 H Lactic Acid 1.0 Calcium 8.2 L Radiography Diagnostic Testing: Radiology Impression Chest X-Ray 08/26/20 09:20 IMPRESSION: Hyperinflation. No acute abnormality is seen. Electronically Signed: Matthias Brown MD at 9:34 EDT , Service support , One view chest x-ray is read by me shows no acute disease. EKG Initial EKG: Attestation: I personally reviewed and interpreted this EKG as follows: Interpretation: Sinus Arrythmia and Non-Specific ST Changes Comments: EKG is sinus arrhythmia at a rate of 84. Nonspecific ST changes. It is unchanged from November 302018. Prior EKG tracings: available for review Prior: Unchanged Treatment and Re-Evaluation Comments:: Emergency department course: Patient had a coughing episode and felt more short of breath following this. He is given albuterol aerosol without relief. He does have a distant history of tobacco use and his chest x-ray does show hyperinflation. He is never used an inhaler previously. Treatment plan: Patient feels well and would like to go home. He will be treated as a COPD exacerbation. Will be discharged with 5 days of prednisone, doxycycline, and an albuterol MDI. Instructed to follow-up his primary care physician in 3-5 days if not improving. Return to the emergency department for any worsening symptoms. Disposition: To home in improved and stable condition. This note was generated with [employer] dictation software. It may contain incorrect words, spelling, and punctuation that were not noted in review of the chart prior to signing. Discharge Plan Triage Chief Complaint: Cold Sx ED Provider: Tre Moreno Dx/Rx/DC Orders Clinical Impression: Former tobacco use, URI, acute Instructions: ED Bronchitis with Wheezing (Adult) Prescriptions: New prednisone 20 MG tablet 40 mg PO DAILY Qty: 10 RF: 0 doxycycline monohydrate 100 MG capsule 100 mg PO BID Qty: 14 RF: 0 albuterol sulfate [Ventolin HFA] 1 INHALER inhaler 2 puff inhalation Q4H PRN PRN (Reason: Wheezing) Qty: 1 RF: 0 No Action donepezil 10 MG tablet 10 mg PO DAILY RF: 0 amlodipine 5 MG tablet 5 mg PO DAILY RF: 0 pantoprazole 40 MG tablet 40 mg PO DAILY RF: 0 sertraline 25 MG tablet 25 mg PO DAILY RF: 0 ondansetron 4 MG tablet 4 mg PO Q8H PRN PRN (Reason: Nausea) Qty: 10 RF: 0 Primary Care Provider: Karla Barton Referrals: Karla Barton MD [Primary Care Provider] - 3-5 Days Disposition Disposition: Home, self care Discharge Date/Time: 08/26/20 11:38
--- NOTE | 2020-08-26 09:20 | RAD_ITS ---
STUDY: X-RAY CHEST REASON FOR EXAM: Male, 80 years old. 4 day history of cough and chest congestion. TECHNIQUE: Single AP portable view of the chest. COMPARISON: Comparison is made with prior study 11/30/2018. FINDINGS: Hyperinflation. Stable minimal increased linear markings at the left lung base suggestive of mild scarring. There is no demonstrated pleural abnormality. Normal size heart. Normal mediastinum and maría elena. Normal visualized pulmonary arteries. There is atherosclerotic calcification of the aortic arch with tortuosity. There are diffuse degenerative changes of the visualized thoracic spine. Normal visualized ribs, clavicles, and shoulders. There is no demonstrated abnormality of the visualized soft tissue structures of the upper abdomen. RAD/Chest 1 View (Portable) IMPRESSION: Hyperinflation. No acute abnormality is seen. Electronically Signed: Matthias Brown MD at 9:34 EDT , Service support ,
[2020-08-26 09:50] LABS: Absolute Lymphocyte Count 0.88 X10^3/uL (0.83-4.51); Absolute Neutrophil Count 3.6 X10^3/uL (2.0-7.7); Basophil# 0.05 X10^3/uL; Basophil% 0.9 % (0-1); Eosinophil# 0.19 X10^3/uL; Eosinophils% 3.4 % (0-5); Hematocrit 43.1 % (40-54); Hemoglobin 14.8 g/dL (13.0-16.5); Lymphocyte # 0.88 X10^3/ul (0.83-4.51); Lymphocyte % 15.9 % (19-41); Mean Corp Hgb Conc 34.3 g/dL (32-36); Mean Corpuscular Hgb 33.7 pg (27.0-32.0); Mean Corpuscular Volume 98.2 fL (80-94); Mean Platelet Vol. 10.9 fl (6.2-12.0); Monocyte# 0.76 X10^3/uL; Monocyte% 13.7 % (0-10); NRBC Flagged by Analyzer 0 % (0-5); Neutrophil # 3.64 X10^3/uL (2.7-7.7); Neutrophil % 65.7 % (47-70); Platelet Count 259 K/mm3 (150-450); RBC Distribution Width CV 12.3 % (11.6-14.6); RBC Distribution Width SD 44.2 fl (35.1-43.9); Red Blood Count 4.39 M/mm3 (4.6-6.2); White Blood Count 5.5 K/mm3 (4.4-11.0)
[2020-08-26 10:00] LABS: Anion Gap 6 (5-15); BUN 6 mg/dL (7-18); BUN/Creat Ratio 7.7 RATIO (10-20); Calcium,Total 8.2 mg/dL (8.5-10.1); Chloride 105 mmol/L (98-107); Creatinine, Serum 0.78 mg/dL (0.70-1.30); EST Glomerular Filtration Rate 102 mL/min (>60); Est Glom Filt Rate - Afr Amer 123 mL/min (>60); Glucose 138 mg/dL (74-106); Potassium 3.5 mmol/L (3.5-5.1); Sodium Level 139 mmol/L (136-145)
[2020-08-26 11:10] VITALS: PULSE 79; RESP 29
[2020-08-26] MEDS: Albuterol 2.5 MG/3 ML VIAL.NEB. INHALATION (11:10)
[2020-08-26] MEDS: Doxycycline 100 MG CAPSULE PO (11:33)
[2020-08-26 11:36] VITALS: BP 157/98; RESP 18; O2SAT 100; O2SAT 98
[2020-08-30 08:45] LABS: Bedside Glucose 135 mg/dL (70-110)
== END 2020-08-26 11:38 | disposition home or self-care (01) ==
LOC: ED 09:18
PROVIDERS: Emergency Provider Emergency Medicine; PCP Internal Medicine
DX: J06.9 Acute upper respiratory infection, unspecified (principal); Z87.891 Personal history of nicotine dependence; Z79.899 Other long term (current) drug therapy
CPT/HCPCS: 36415; 71045; 80048; 82962; 83605; 85025; 87040; 87426; 93005; 94640; 99284; A4216

== ENCOUNTER → 2022-04-14 | Outpatient (CLI) | payer MEDICARE, SELFPAY ==
--- NOTE | 2022-04-14 09:00 | ART_ITS ---
Reason For Study: PAD Procedure A bilateral lower extremity continuous wave Doppler with analog waveform analysis,segmental pressures,and ankle brachial indexes with exercise. Left Segmental Pressures Left brachial= 146mmHg. Left posterior tibial artery = 153mmHg. Left dorsalis pedis artery = 157mmHg. The left posterior tibial artery waveforms are triphasic. The left dorsalis pedis waveforms are triphasic. Right Segmental Pressures Right brachial= 144mmHg. Right posterior tibial artery = 164mmHg. Right dorsalis pedis artery = 162mmHg. The right posterior tibial artery waveforms are triphasic. The right dorsalis pedis waveforms are triphasic. Indices The right resting ankle brachial index is 1.12. The right ankle brachial index by the posterior tibial artery is 1.12. The right ankle brachial index by the dorsalis pedis is 1.11. The right post exercise ankle brachial index is 1.16. The left resting ankle brachial index is 1.08. The left ankle brachial index by the posterior tibial artery is 1.05. The left ankle brachial index by the dorsalis pedis is 1.08. The left post exercise ankle brachial index is 1.14. VL/Lower Ext Art Exam w/ Exercise Interpretation Summary Triphasic Doppler waveforms are noted at ankle level bilaterally. Pulse-volume recordings appear satisfactory at low thigh, calf, and ankle level bilaterally. Resting ankle-bra chial indices are normal bilaterally. The patient ambulated for 5 minutes at 2.5 MPH and a 5% inc line, following which ankle pressures and ankle-brachial indices augmented bilaterally, which is a no rmal physiological response. There is no evidence of significant arterial occlusive disease in the lower ext remities bilaterally. Ordering Physician: Jay Jay Locke Referring Physician: Karla Barton Performed By: Katheryn Brown, RDCS, RVT
== END | disposition home or self-care (01) ==
LOC: CVS 08:58
PROVIDERS: PCP Internal Medicine; Visit Provider Podiatrist
DX: I73.9 Peripheral vascular disease, unspecified (principal)
CPT/HCPCS: 93924

== ENCOUNTER 2022-04-28 00:39 | Emergency (ER) | payer MEDICARE, SELFPAY ==
[2022-04-28 00:40] VITALS: BP 110/66; PULSE 74; RESP 16; TEMP 36.4; O2SAT 96; BMI 24.7
--- NOTE | 2022-04-28 01:14 | CT_ITS ---
INDICATION: Weakness. Insulinoma? EXAMINATION: CT Abdomen And Pelvis W/ Contrast Injection TECHNIQUE: Helically acquired images were obtained of the abdomen and pelvis following IV contrast. 2-D reconstructions reviewed. A radiation dose optimization technique was used for this scan. IV Contrast dosage and agent: 100 mL Isovue-370 Oral contrast: None. COMPARISON: CT abdomen and pelvis from 08/10/2018 FINDINGS: LOWER CHEST: No acute findings within the imaged lung bases. Heart size within normal limits. LIVER: Homogeneous. No concerning lesion. GALLBLADDER AND BILIARY TREE: Status post cholecystectomy. No significant biliary ductal dilation. PANCREAS: No discrete mass or peripancreatic edema. SPLEEN: Normal size with punctate calcified granuloma. ADRENAL GLANDS: Unremarkable. KIDNEYS AND URETERS: Normal renal size and position. No hydronephrosis. Small nonobstructing 2 to 3 mm left renal stone noted. No concerning lesion. PERITONEUM: No peritoneal free air or significant free fluid. No other fluid collection. RETROPERITONEUM: No retroperitoneal mass or pathologic fluid collection. BOWEL: No evidence of acute appendicitis. No abnormal stomach or bowel distension. No focal inflammatory change. LYMPH NODES: No enlarged mesenteric or retroperitoneal lymph nodes. VESSELS: Atherosclerosis with no abdominal aortic aneurysm. URINARY BLADDER: Unremarkable as visualized. REPRODUCTIVE ORGANS: Slightly enlarged prostate gland again noted with small dystrophic calcifications. ABDOMINAL WALL: No acute findings or significant hernia defect. BONES: Degenerative changes and mild scoliotic curvature along spine. CT/Abdomen/Pelvis W IV Cont ONLY IMPRESSION: No evidence of acute intra-abdominal abnormality. Other nonurgent findings within body of report. Electronically Signed: Ezra Mcrae MD at 2:05 EST ,
[2022-04-28 01:16] LABS: Bedside Glucose 188 mg/dL (74-106)
[2022-04-28 01:25] LABS: Absolute Lymphocyte Count 2.99 X10^3/uL (0.83-4.51); Absolute Neutrophil Count 4.4 X10^3/uL (2.0-7.7); Basophil# 0.11 X10^3/uL; Basophil% 1.2 % (0-1); Eosinophil# 0.25 X10^3/uL; Eosinophils% 2.8 % (0-5); Hematocrit 38.1 % (40-54); Hemoglobin 12.9 g/dL (13.0-16.5); Lymphocyte # 2.99 X10^3/ul (0.83-4.51); Lymphocyte % 33.6 % (19-41); Mean Corp Hgb Conc 33.9 g/dL (32-36); Mean Corpuscular Hgb 33.4 pg (27.0-32.0); Mean Corpuscular Volume 98.7 fL (80-94); Monocyte# 1.16 X10^3/uL; NRBC Flagged by Analyzer 0 % (0-5); Neutrophil # 4.35 X10^3/uL (2.7-7.7); Neutrophil % 49.1 % (47-70); Platelet Count 292 K/mm3 (150-450); RBC Distribution Width CV 12.8 % (11.6-14.6); Red Blood Count 3.86 M/mm3 (4.6-6.2); White Blood Count 8.9 K/mm3 (4.4-11.0)
[2022-04-28 01:38] LABS: Anion Gap 11 (5-15); BUN 7 mg/dL (7-18); BUN/Creat Ratio 9.8 RATIO (10-20); Calcium,Total 8.4 mg/dL (8.5-10.1); Chloride 103 mmol/L (98-107); Creatinine, Serum 0.71 mg/dL (0.70-1.30); EST Glomerular Filtration Rate 113 mL/min (>60); Est Glom Filt Rate - Afr Amer 136 mL/min (>60); Estimated Creatinine Clearance 51.25 ml/min; Glucose 55 mg/dL (74-106); Potassium 3.1 mmol/L (3.5-5.1); Sodium Level 137 mmol/L (136-145)
[2022-04-28 02:55] VITALS: PULSE 62; RESP 15; O2SAT 98
--- NOTE | 2022-04-28 02:56 | EDS_ITS ---
HPI History of Present Illness Chief Complaint: Weakness Narrative Narrative: Patient is an 81-year-old male with past medical history of hypertension GERD as well as anxiety and depression. He and report that for multiple months he has had fluctuations in his blood sugar where will run high and then spontaneously become very low. He states that he is not a diabetic. He reports he has had this investigated in the past with no obvious cause. Reported this evening the patient had increased weakness and difficulty with speech and was concerned about a stroke so therefore called EMS. When EMS arrived they checked his blood sugar and it was along the lower end of the spectrum at 64. He was given dextrose and upon arrival to the ER is awake and alert with no focal finding. However with the symptoms being more severe than they have been in the past for his hyperglycemia presents for evaluation [facility] Medical History (Updated 04/28/22 @ 04:[address] DO) Alcohol abuse Anxiety and depression Dementia Former tobacco use GERD (gastroesophageal reflux disease) HTN (hypertension) Home Medications amlodipine 5 mg tablet 5 mg PO DAILY blood pressure 05/11/17 [History Last Taken Unknown] donepezil 10 mg tablet 10 mg PO DAILY memory 05/11/17 [History Last Taken Unknown] pantoprazole 40 mg tablet,delayed release 40 mg PO DAILY reflux 05/11/17 [History Last Taken Unknown] sertraline 25 mg tablet 25 mg PO DAILY 11/30/18 [History Last Taken Unknown] aspirin 81 mg tablet,delayed release 81 mg PO DAILY 04/28/22 [History Last Taken Unknown] miglitol 50 mg tablet 50 mg PO DAILY 04/28/22 [History Last Taken Unknown] Allergy/AdvReac Type Severity Reaction Status Date / Time levofloxacin [From Levaquin] Allergy Vomiting Verified 04/28/22 00:42 Surgical History (Updated 04/28/22 @ 01:[address] Marcy Whittington MD) History of ankle surgery History of repair of hiatal hernia S/P cholecystectomy Social History (Updated 04/28/22 @ 01:[address] Marcy Whittington MD) household members: spouse Smoking Status: Former smoker how long ago did patient quit smoking: Quit 29 years prior, smoked 1 ppd until quit. alcohol intake: current details: Previously reported 12 pack beer weekly, prior suspicions EtOH abuse. substance use type: does not use ROS ROS ED Constitutional Constitutional ED: Denies chills or fever(s) Eyes Eyes: Denies change in vision ENT ENT ED: Denies sore throat Cardiovascular Cardiovascular: Denies chest pain Respiratory/Chest Respiratory/Chest: Denies cough or dyspnea Gastrointestinal Gastrointestinal: Denies abdominal pain, diarrhea, nausea or vomiting Genitourinary Genitourinary ED: Denies dysuria Musculoskeletal Musculoskeletal: Denies myalgias Integumentary Denies rash Neurologic Neurologic: Reports weakness; Denies headache(s) or paresthesias Hematologic/Lymphatic Hematologic/Lymphatic: Denies easy bleeding or easy bruising EXAM Physical Exam Const Vital Signs: 04/28/22 00:40 04/28/22 02:55 Temperature 97.6 F L Temperature Source Oral Pulse Rate 74 62 Respiratory Rate 16 15 Blood Pressure 110/66 Blood Pressure Mean 80 Pulse Ox 96 98 Oxygen Delivery Method Room Air Positive well nourished and well developed General Appearance ED: well developed HEENT Reports moist mucous membranes Eyes PERRL and EOMs intact bilaterally Neck supple Neck Narrative: No nuchal rigidity or meningeal signs no Resp normal respiratory effort and clear to auscultation bilaterally Cardio regular rate and regular rhythm Rate: other Other Details: Radial pulses are plus 2 out of 4 bilaterally are equal and symmetric GI normal to inspection, nondistended, normoactive bowel sounds, non-tender, non- distended and no masses GI Narrative: No voluntary guarding or rigidity no pulsatile mass Auscultation: normoactive bowel sounds Palpation: soft Extremity normal to inspection Neuro oriented x3 and CN's II-XII intact bilaterally Neuro Narrative: Cranial nerves II through XII are grossly intact there are no focal neurologic deficit. No pronator drift no dysmetria no truncal ataxia. NIH stroke scale score of 0 Sensorium / Orientation: alert Psych mental status grossly normal Skin no rashes or lesions noted MDM MDM MDM Narrative Medical decision making narrative: Patient arrived to the ER with stable vitals and he was awake and alert with a normal neurologic exam and stroke scale score of 0. They report weakness and slurred speech with a low blood sugar that improved with dextrose is consistent with a hypoglycemic event and therefore I felt no need for CT of the head. Patient states that he has had these precipitous drops in his blood sugar without any obvious reason and I do have concern he could have an insulinoma so I like to perform basic labs and a CT of the abdomen pelvis. The CT revealed no acute finding. Labs showed hyperglycemia at 55 but this was drawn by EMS prior to them giving dextrose which correlates with his hypoglycemic event. After patient's work-up was complete he was reevaluated and his neurologic exam remains normal. Repeat blood sugar at this time has decreased from upon arrival but is still stable at 106. Therefore as the patient is not requiring a dextrose drip and he has no signs of acute CVA or infectious process or tumor causing the symptoms he is otherwise safe for discharge Lab Data Attestation: I reviewed the patient's lab results. Labs: Laboratory Results - last 24 hr 04/28/22 04/28/22 04/28/22 00:35 00:35 00:55 WBC 8.9 RBC 3.86 L Hgb 12.9 L Hct 38.1 L MCV 98.7 H MCH 33.4 H MCHC 33.9 RDW Std Deviation 46.0 H RDW Coeff of Fay 12.8 Plt Count 292 MPV 10.0 Immature Gran % (Auto) 0.300 Neut % (Auto) 49.1 Lymph % (Auto) 33.6 [place] % (Auto) 13.0 H Eos % (Auto) 2.8 Baso % (Auto) 1.2 H Absolute Neuts (auto) 4.4 Absolute Lymphs (auto) 2.99 Nucleated RBC % 0 Sodium 137 Potassium 3.1 L Chloride 103 Carbon Dioxide 23.0 Anion Gap 11 BUN 7 Creatinine 0.71 Estim Creat Clear Calc 51.25 Est GFR (MDRD) Af Amer 136 Est GFR (MDRD) Non-Af 113 BUN/Creatinine Ratio 9.8 L Glucose 55 L Calcium 8.4 L POC Glucose 188 H 04/28/22 02:43 WBC RBC Hgb Hct MCV MCH MCHC RDW Std Deviation RDW Coeff of Fay Plt Count MPV Immature Gran % (Auto) Neut % (Auto) Lymph % (Auto) [place] % (Auto) Eos % (Auto) Baso % (Auto) Absolute Neuts (auto) Absolute Lymphs (auto) Nucleated RBC % Sodium Potassium Chloride Carbon Dioxide Anion Gap BUN Creatinine Estim Creat Clear Calc Est GFR (MDRD) Af Amer Est GFR (MDRD) Non-Af BUN/Creatinine Ratio Glucose Calcium POC Glucose 106 Radiography Diagnostic Testing: Clinical Impression(s) from Imaging Studies Abdomen/Pelvis CT 04/28/22 01:14 IMPRESSION: No evidence of acute intra-abdominal abnormality. Other nonurgent findings within body of report. Electronically Signed: Ezra cMrae MD at 2:05 EST , Discharge Plan Triage Chief Complaint: Weakness ED Provider: Bentley Way Dx/Rx/DC Orders Clinical Impression: Hypoglycemia, History of hypertension Instructions: Hypoglycemia (Low Blood Sugar) Prescriptions: No Action donepezil 10 MG tablet 10 mg PO DAILY amlodipine 5 MG tablet 5 mg PO DAILY pantoprazole 40 MG tablet 40 mg PO DAILY sertraline 25 MG tablet 25 mg PO DAILY miglitol 50 mg Tablet 50 mg PO DAILY Rx Instructions: administer at the beginning of each meal aspirin [Aspir-81] 81 mg Tablet,Delayed Release (Dr/Ec) 81 mg PO DAILY Primary Care Provider: Karla Barton Referrals: Karla Barton MD [Primary Care Provider] - Disposition Disposition: Home, Self Care Discharge Date/Time: 04/28/22 03:00
[2022-04-28 03:00] LABS: Bedside Glucose 106 mg/dL (74-106)
== END 2022-04-28 03:00 | disposition home or self-care (01) ==
PROVIDERS: Emergency Provider Emergency Medicine; PCP Internal Medicine; Visit Provider Emergency Medicine
DX: E16.2 Hypoglycemia, unspecified (principal); R53.1 Weakness; R47.81 Slurred speech; F41.9 Anxiety disorder, unspecified; I10 Essential (primary) hypertension; Z79.82 Long term (current) use of aspirin; Z87.891 Personal history of nicotine dependence
CPT/HCPCS: 74177; 80048; 82962; 85025; 99285; Q9967; A4216

== ENCOUNTER 2024-06-25 21:42 | Inpatient (IN) | payer MEDICARE, SELFPAY ==
[2024-06-25 21:46] VITALS: BP 134/68; PULSE 78; RESP 18; TEMP 36.6; O2SAT 96; BMI 27.0
--- NOTE | 2024-06-25 22:04 | CT_ITS ---
EXAM: BRAIN/HEAD WITHOUT CONTRAST CLINICAL HISTORY: 83-year-old male, trauma. COMPARISON: None. TECHNIQUE: Routine CT imaging of the head without IV contrast. Additional multiplanar reformats were obtained. Dose reduction techniques were used including intermediate exposure control (AEC),iterative reconstruction technique, and/or mA and/or KV dose adjustments based on patient's size. FINDINGS: Mild generalized cerebral volume loss with concordant prominence of the subarachnoid spaces. 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 Moderate patchy supratentorial white matter hypodensities. The hamlin-white matter interfaces are otherwise maintained. No acute intracranial hemorrhage or mass effect. Retention cyst or polyp within the right maxillary sinus. Trace mucosal thickening of the bilateral sphenoid sinuses. The orbits and mastoids are unremarkable. No acute calvarial fracture or scalp hematoma. CT/Brain/Head without Contrast IMPRESSION: 1. No acute intracranial finding. 2. Findings of chronic microvascular ischemic changes and age-related changes. Reading Location: [id number]
--- NOTE | 2024-06-25 22:04 | RAD_ITS ---
PROCEDURE: HIP, UNI W/ PELVIS 2-3 VIEWS 06/25/2024 REASON FOR EXAM: 83-year-old male, fall. TECHNIQUE: 2 views of the left hip. AP Pelvis. COMPARISON: Same day CT abdomen pelvis. FINDINGS: Pelvis: Mild degenerative changes of the bilateral hip and SI joints. Bones left: Acute fracture of the left femoral neck. The left hip joint space is maintained. Joints left: Normal alignment. Mild degenerative changes. Soft tissues left: Soft tissue swelling. RAD/HIP, UNI W/ Pelvis 2-3 Views IMPRESSION: Acute fracture of the left femoral neck. Dr. Rivera discussed these findings with Dr. Hurt at 11:40 pm on 06/25/24. Reading Location: [id number]
--- NOTE | 2024-06-25 22:04 | EKG12_ITS ---
Test Reason : DYSRHYTHMIA Blood Pressure : */* mmHG Vent. Rate : 81 BPM Atrial Rate : 81 BPM P-R Int : 180 ms QRS Dur : 90 ms QT Int : 434 ms P-R-T Axes : 81 9 50 degrees QTcB Int : 504 ms Sinus rhythm with Premature atrial complexes Prolonged QT Abnormal ECG Confirmed by BLESSING RM, CHAD ([id number]), publication editor JAGUAR MUKHERJEE ([id number]) on 06/26/2024 8:08:09 AM Referred By: Tung Hurt Confirmed By: CHAD FUNK MD
--- NOTE | 2024-06-25 22:05 | CT_ITS ---
PROCEDURE: SPINE CERVICAL WITHOUT CONTRAS 06/25/2024 REASON FOR EXAM: 83-year-old male, trauma. TECHNIQUE: Cervical spine CT without contrast. Coronal and Sagittal reconstruction series were provided. One or more dose reduction techniques were used (e.g., Automated exposure control, adjustment of the mA and/or kV according to patient size, use of iterative reconstruction technique RADIATION DOSE SUMMARY: CTDlvol: 19 mGy DLP: 400 mGycm COMPARISON: None. FINDINGS: Alignment: No traumatic listhesis. Vertebrae: No acute osseous fracture. Diffuse osseous demineralization. Chronic mild vertebral body height loss. Multilevel degenerative disc disease, uncovertebral facet hypertrophy and posterior disc osteophyte complexes result in mild central spinal and mild right neural foraminal stenosis at C5-6. Soft Tissues: No prevertebral or subcutaneous hematoma. Biapical emphysema. CT/Spine Cervical without Contras IMPRESSION: NO ACUTE CERVICAL FRACTURE. DEGENERATIVE CHANGES. Reading Location: [id number]
--- NOTE | 2024-06-25 22:05 | CT_ITS ---
PROCEDURE: CT CHEST, ABD, PEL W/CONTRAST 06/25/2024 REASON FOR EXAM: 83-year-old male, fall. TECHNIQUE: Chest, abdomen and pelvis CT with intravenous contrast. Coronal and Sagittal reconstruction series were provided. One or more dose reduction techniques were used (e.g., Automated exposure control, adjustment of the mA and/or kV according to patient size, use of iterative reconstruction technique. PATIENT PREPARATION: Per protocol ORAL CONTRAST TYPE: None. CONTRAST: Isovue-300 VOLUME: 100mL RADIATION DOSE SUMMARY: CTDlvol: 50 mGy DLP: 1200 mGycm COMPARISON: CT abdomen pelvis 04/28/2022. FINDINGS: CT CHEST: Hardware: None. Lymph nodes: No axillary, hilar or mediastinal lymphadenopathy. Heart and Vasculature: Mild cardiomegaly without pericardial effusion. Minimal coronary artery and mild thoracic aortic calcifications. The great vessels are normal in caliber. Lungs and Airways: Visualization is limited by motion artifact. The central airways are grossly patent. Mild emphysema and scattered areas of scarring. No suspicious pulmonary nodule, pleural effusion or pneumothorax. Bones: Chronic appearing compression fracture deformity of the T7 and T8 vertebral bodies. Chronic right rib fracture deformity. CT ABDOMEN/PELVIS: Liver: The liver is normal in size without focal hepatic mass. Mild intrahepatic and extrahepatic biliary ductal dilation. The major portal veins are patent. Gallbladder: Surgically absent. Spleen: Unremarkable. Pancreas: Diffuse fatty atrophy. Adrenals: Unremarkable. Kidneys: Mild symmetric renal cortical atrophy. Tiny nonobstructing left lower pole renal calculus. No hydronephrosis. Bladder: The urinary bladder is markedly distended. Reproductive Organs: Probable prior TURP. Bowel: Stable distention of the large bowel loops. No pathologic bowel dilation. No ascites or pneumoperitoneum Normal appendix. Lymph nodes: No lymphadenopathy. Vasculature: Moderate calcific plaque of the aortoiliac vessels. Bones: Diffuse osseous demineralization. Acute fracture deformity of the left femoral neck. Small hematoma along the left posterolateral soft tissues. CT/CT Chest, Abd, Pel w/Contrast IMPRESSION: CT chest: 1. No acute thoracic finding. 2. Mild cardiomegaly. 3. Chronic T7 and T8 compression fracture deformities. CT abdomen/pelvis: 1. Acute left femoral neck fracture. Small hematoma along the left posterolate ral soft tissues. 2. No visceral abdominopelvic injury. Reading Location: [id number]
[2024-06-25] MEDS: Diphth,Pertuss(Acell),Tet Vac 0.5 ML Vial IM (22:23)
[2024-06-25] MEDS: Ondansetron 4 MG/2 ML Vial IV (22:23)
[2024-06-25] MEDS: Morphine 4 MG/ML Syringe IV ×2 (22:23→23:54)
[2024-06-25] MEDS: 0.9% Normal Saline (1000mL) 1,000 ML 999 ML IV (22:24)
[2024-06-25] MEDS: Contrast Allergy Safety Check IV (22:24)
[2024-06-25 22:33] LABS: Absolute Lymphocyte Count 2.39 X10^3/uL (0.83-4.51); Absolute Neutrophil Count 5.5 X10^3/uL (2.0-7.7); Basophil# 0.09 X10^3/uL; Eosinophil# 0.43 X10^3/uL; Eosinophils% 4.6 % (0-5); Hematocrit 37.7 % (40-54); Hemoglobin 12.9 g/dL (13.0-16.5); Lymphocyte # 2.39 X10^3/ul (0.83-4.51); Lymphocyte % 25.6 % (19-41); Mean Corp Hgb Conc 34.2 g/dL (32-36); Mean Corpuscular Hgb 33.2 pg (27.0-32.0); Mean Corpuscular Volume 97.2 fL (80-94); Mean Platelet Vol. 9.5 fl (6.2-12.0); Monocyte# 0.77 X10^3/uL; Monocyte% 8.3 % (0-10); NRBC Flagged by Analyzer 0 % (0-5); Neutrophil # 5.54 X10^3/uL (2.7-7.7); Neutrophil % 59.3 % (47-70); Platelet Count 238 K/mm3 (150-450); RBC Distribution Width CV 12.4 % (11.6-14.6); RBC Distribution Width SD 43.9 fl (35.1-43.9); Red Blood Count 3.88 M/mm3 (4.6-6.2); White Blood Count 9.3 K/mm3 (4.4-11.0)
--- NOTE | 2024-06-25 23:26 | EDS_ITS ---
HPI History of Present Illness Chief Complaint: Fall Narrative Narrative: Patient is a 83-year-old male past medical history of alcohol abuse, GERD, anxiety, depression, dementia, hypertension who presented to the emergency department with a chief complaint of fall down a set of stairs. Patient states that he fell down approximately 12 stairs at home. He states that he was walking up stairs from the basement when he slipped on the step causing a fall backwards he states that he did not pass out. He states that he has severe pain in his left hip and rates the pain 8 and 9 out of 10. Going to EMS they did give him fentanyl. Patient denies any other pain. Patient denies any blood thinning medications [facility] Medical History Alcohol abuse GERD (gastroesophageal reflux disease) Former tobacco use Anxiety and depression Dementia HTN (hypertension) Home Medications ?Medication ?Instructions ?Recorded ?Last Taken ?Type amlodipine 5 mg tablet 5 mg PO DAILY blood pressure 05/11/17 Unknown History donepezil 10 mg tablet 10 mg PO DAILY memory Unknown History pantoprazole 40 mg tablet,delayed 40 mg PO DAILY reflu x 05/11/17 Unknown History release sertraline 25 mg tablet 25 mg PO DAILY 11/30/18 Unkn own History aspirin 81 mg tablet,delayed 81 mg PO DAILY 04/28/22 U nknown History release miglitol 50 mg tablet 50 mg PO DAILY 04/28/22 Unkn own History Allergy/AdvReac Type Severity Reaction Status Date / Time levofloxacin (From Levaquin) Allergy Vomiting Verified 06/25/24 21:45 Surgical History History of ankle surgery S/P cholecystectomy History of repair of hiatal hernia Social History household members: spouse Smoking Status: Former smoker how long ago did patient quit smoking: Quit 29 years prior, smoked 1 ppd until quit. alcohol intake: current details: Previously reported 12 pack beer weekly, prior suspicions EtOH abuse. substance use type: does not use ROS ROS ED ROS Narrative Constitutional: Denies headache, lightness, dizziness Eyes: No change in vision double vision blurry vision Cardiovascular: Denies chest pain Respiratory: Denies shortness of breath Abdomen: Denies abdominal pain nausea vomit diarrhea Neurological: Denies numbness, weakness, tingling Musculoskeletal: Complains of left hip pain as noted above Skin: Denies rashes or lesions EXAM Physical Exam Narrative Exam Narrative: General: Patient is lying in bed did appear to be uncomfortable secondary to his hip pain Head: Atraumatic, normocephalic Eyes: PERRL bilateral, EOMI bilaterally, no conjunctival injection noted Neck: Soft, supple and trachea midline Cardiovascular: Regular rate and rhythm no murmurs gallops rubs noted Respiratory: Clear to auscultation bilaterally Abdomen: Soft, nondistended, tender to palpation Musculoskeletal: Patient has pain with attempted range of motion of his left hip, although bony prominences and joints taken through full range of motion no pain elicited Extremities: Radial pulses +2/4 in the bilateral extremities, DP pulses +2/4 in the bilateral lower extremities, no pedal edema on exam Neurological: Patient following commands knew that he was at [facility] years 2024 Skin: Warm, dry, intact, patient has superficial abrasion noted over the left forearm no active bleeding noted Const Vital Signs: 06/25/24 21:46 06/25/24 21:46 06/25/24 23:42 Temperature 97.8 F Temperature Source Oral Pulse Rate 78 85 Respiratory Rate 18 16 Respiratory Effort Normal Non-Labored Respiratory Depth Normal Respiratory Pattern Normal Blood Pressure 134/68 H 121/64 H Blood Pressure Mean 90 83 Pulse Ox 96 90 Oxygen Delivery Method Room Air Room Air Room Air Oxygen Flow Rate (L/min) 06/26/24 00:05 06/26/24 00:06 Temperature Temperature Source Pulse Rate Respiratory Rate Respiratory Effort Respiratory Depth Respiratory Pattern Blood Pressure Blood Pressure Mean Pulse Ox 81 92 Oxygen Delivery Method Room Air Nasal Cannula Oxygen Flow Rate (L/min) 2 MDM MDM MDM Narrative Medical decision making narrative: Patient is a 83-year-old male who presented to the emerged part with chief complaint of fall down a set of stairs as well as left hip pain. On the differential diagnose includes but not limited to left hip fracture, intracranial hemorrhage, cervical spine fracture, thoracolumbar compression fracture, rib fracture, pneumothorax. Once workup is obtained reviewed he will be reevaluated. Patient will be given IV fluids morphine Zofran. Patient tetanus shot will be updated. Patient CBC was reviewed and showed no evidence leukocytosis white blood count normal 9.3, hemoglobin 12.9, plate count was 238. Patient sodium was low at 127 indicating hyponatremia, calcium was 3.5, creatinine was 0.63. patient's AST and ALT were 94 and 29 respectively . Patient's urinalysis pending. Patient's CT head and brain without contrast showed no acute intracranial findings. Patient's CT cervical spine reviewed and showed no acute cervical fracture. Patient's CT chest abdomen pelvis with contrast showed no acute thoracic findings mild cardiomegaly with chronic T7 and T8 compression fracture deformities. Acute left femoral neck fracture. Small hematoma along the left posterior lateral soft tissues. Patient's x-ray of his pelvis reviewed showed once again the fracture of the left femoral neck. Patient's EKG was reviewed which showed sinus rhythm with a rate of 81 bpm with PACs noted. Did discuss case with Dr. Thorpe who is recommending mission to the hospitalist and he will prepare for surgery tomorrow. Patient is still having pain therefore gave him another 4 mg of IV morphine. I discussed results with the patient and family members at bedside. Nursing notified me that after the second dose of morphine patient became hypoxic therefore he is placed on 2 L nasal cannula Discussed case with hospitalist Dr. Hillman who accept patient for admission. Patient notified all question concerns answered. Lab Data Labs: Laboratory Results - last 24 hr 06/25/24 06/25/24 20:45 22:15 WBC 9.3 RBC 3.88 L Hgb 12.9 L Hct 37.7 L MCV 97.2 H MCH 33.2 H MCHC 34.2 RDW Std Deviation 43.9 RDW Coeff of Fay 12.4 Plt Count 238 MPV 9.5 Immature Gran % (Auto) 1.200 H Neut % (Auto) 59.3 Lymph % (Auto) 25.6 [place] % (Auto) 8.3 Eos % (Auto) 4.6 Baso % (Auto) 1.0 Absolute Neuts (auto) 5.5 Absolute Lymphs (auto) 2.39 Nucleated RBC % 0 Sodium 127 L Potassium 3.5 Chloride 94 L Carbon Dioxide 19.2 L Anion Gap 14 BUN 7 Creatinine 0.63 L Estim Creat Clear Calc 61.93 Est GFR (MDRD) Non-Af 95 BUN/Creatinine Ratio 11.6 Glucose 94 Calcium 7.9 Total Bilirubin 0.50 Direct Bilirubin 0.24 AST 94 H ALT 29 Alkaline Phosphatase 86 Total Protein 6.3 Albumin 3.9 Globulin 2.4 Urine Color Yellow Urine Clarity Clear Urine pH 6.5 Ur Specific [place] 1.010 Urine Protein 30 H Urine Glucose (UA) Normal Urine Ketones Negative Urine Occult Blood 10 H Urine Nitrite Negative Urine Bilirubin Negative Urine Urobilinogen Normal Ur Leukocyte Esterase Negative Urine RBC 0-5 SEEN Urine WBC 0-5 SEEN Ur Squamous Epith Cells 0-5 SEEN Urine Bacteria 1+ Urine Mucus 0 SEEN Radiography Diagnostic Testing: Clinical Impression(s) from Imaging Studies Brain CT 06/25/24 22:04 IMPRESSION: 1. No acute intracranial finding. 2. Findings of chronic microvascular ischemic changes and age-related changes. Reading Location: [facility] Hip/Pelvis X-Ray 06/25/24 22:04 IMPRESSION: Acute fracture of the left femoral neck. Dr. Rivera discussed these findings with Dr. Hurt at 11:40 pm on 06/25/24. Reading Location: [facility] Cervical Spine CT 06/25/24 22:05 IMPRESSION: NO ACUTE CERVICAL FRACTURE. DEGENERATIVE CHANGES. Reading Location: [facility] Chest/Abdomen/Pelvis CT 06/25/24 22:05 IMPRESSION: CT chest: 1. No acute thoracic finding. 2. Mild cardiomegaly. 3. Chronic T7 and T8 compression fracture deformities. CT abdomen/pelvis: 1. Acute left femoral neck fracture. Small hematoma along the left posterolateral soft tissues. 2. No visceral abdominopelvic injury. Reading Location: [facility] Discharge Plan Triage Chief Complaint: Fall ED Provider: Tung Hurt Dx/Rx/DC Orders Clinical Impression: Closed left hip fracture, Fall, Hyponatremia Prescriptions: No Action donepezil 10 MG tablet 10 mg PO DAILY amlodipine 5 MG tablet 5 mg PO DAILY pantoprazole 40 MG tablet 40 mg PO DAILY sertraline 25 MG tablet 25 mg PO DAILY miglitol 50 mg Tablet 50 mg PO DAILY Rx Instructions: administer at the beginning of each meal aspirin [Aspir-81] 81 mg Tablet,Delayed Release (Dr/Ec) 81 mg PO DAILY Primary Care Provider: Karla Barton Referrals: Kalra Barton MD [Primary Care Provider] - Print Language: Moroccan Disposition Disposition: Acute Care Hospital [facility]
[2024-06-25 23:31] LABS: AST(SGOT) 94 U/L (<=37); Alanine Aminotransfer ALT/SGPT 29 U/L (<=46); Albumin, Serum 3.9 g/dL (3.4-4.8); Alkaline Phosphatase 86 U/L (40-129); Anion Gap 14 (5-15); BUN 7 mg/dL (4-19); BUN/Creat Ratio 11.6 RATIO (10-20); Bilirubin, Direct 0.24 mg/dL (0.00-0.30); Calcium,Total 7.9 mg/dL (7.6-11.0); Carbon Dioxide 19.2 mmol/L (21.0-32.0); Chloride 94 mmol/L (98-108); Creatinine, Serum 0.63 mg/dL (0.70-1.20); EST Glomerular Filtration Rate 95 (>60); Estimated Creatinine Clearance 61.93 ml/min (50-250); Globulin 2.4 g/dL (2.2-4.2); Glucose 94 mg/dL (70-99); Potassium 3.5 mmol/L (3.3-5.1); Protein, Total 6.3 g/dL (5.9-8.4); Sodium Level 127 mmol/L (133-145)
[2024-06-25 23:42] VITALS: BP 121/64; PULSE 85; RESP 16; O2SAT 90
[2024-06-25 23:51] LABS: Mucous, Urine 0 SEEN /hpf (<or=2+)
[2024-06-26] VITALS (16 sets, daily range): BP systolic 116–153; BP diastolic 66–96; PULSE 84–107; RESP 13–20; TEMP 36.4–38.4; O2SAT 81–97; BMI 24.5
[2024-06-26 01:05] LABS: Color, Urine Yellow (Yellow); Glucose, Dipstick Normal (Normal); Ketone-Dipstick Negative (Negative); Leukocyte Esterase-Dipstick Negative /ul (Negative); Nitrite-Dipstick Negative (Negative); Occult Blood-Urine 10 /ul (Negative); Protein-Dipstick 30 mg/dl (Negative); Urine Bilirubin Dipstick Negative (Negative); Urine Clarity Clear (Clear); Urine Urobilinogen Normal (Normal); Urine pH 6.5 (5.0 - 8.0)
[2024-06-26 01:09] LABS: Red Blood Cells-Urine 0-5 SEEN /hpf (0-5); White Blood Cells 0-5 SEEN /hpf (0-5)
[2024-06-26 01:10] LABS: Bacteria 1+ /hpf (None Seen); Squamous Epithelial Cells - UA 0-5 SEEN /hpf (0-5)
--- NOTE | 2024-06-26 01:13 | HP.PCM.HOS_ITS ---
[facility] - General General Date of Admission: 06/26/24 Date of Service: 06/26/24 Chief Complaint: Left Hip Pain after Fall Down Steps. HPI Narrative RACHELL FLORES, is a 83 M with a past medical history of essential hypertension; on amlodipine, overweight; with BMI of 27 this admission, DM-2; of unknown control on miglitol, history of EtOH abuse; with patient admitting to drinking 3-4 beers daily, history of tobacco abuse; allegedly quit ~29 years ago, chronic dementia; on donepezil, depression with anxiety; on sertraline, history of hiatal hernia; s/p repair, history of cholecystectomy, GERD; on pantoprazole and OA; with history of Right ankle surgery who presents to [facility] ER complaining of Left hip pain after fall down steps. Mr. Flores reports his symptoms began approximately one hour prior to arrival after he fell down ~12 steps at home while he was attempting to walk upstairs from his basement. He states he slipped on the step casing him to fall backward onto his Left hip with no reported LOC with his fall. He then noted severe pain in his Left hip with inability to ambulate so EMS was activated. He denies being on anticoagulation. He does admit to having a few beers earlier in the evening with a superficial abrasion over his Left forearm but he denies other significant injury. There was no report of fever, chills, nausea, vomiting, diarrhea, constipation, abdominal pain, chest pain, SOB or headache. In the ER he was noted to have CT evidence of acute Left Femoral Neck Fracture with no acute visceral abdominopelvic injury and no acute thoracic finding with mild cardiomegaly and chronic T7-T8 compression fracture deformities complicated by suspected Acute EtOH Intoxication in the setting of Chronic EtOH Abuse with laboratory evidence of Hyponatremia of 127 mmol/L likely due to Beer Potomania a nd he was then admitted to the general medical floor for ongoing care for a stay that is expected to extend beyond 2 midnights. [facility] Medical History (Updated 06/26/24 @ 02:[address] Ezra Cruz, DO) Alcohol abuse GERD (gastroesophageal reflux disease) Former tobacco use Anxiety and depression Dementia HTN (hypertension) Home Medications ?Medication ?Instructions ?Recorded ?Last Taken ?Type amlodipine 5 mg tablet 5 mg PO DAILY blood pressure 05/11/17 Unknown History donepezil 10 mg tablet 10 mg PO DAILY memory Unknown History pantoprazole 40 mg tablet,delayed 40 mg PO DAILY reflu x 05/11/17 Unknown History release sertraline 25 mg tablet 25 mg PO DAILY 11/30/18 Unkn own History aspirin 81 mg tablet,delayed 81 mg PO DAILY 04/28/22 U nknown History release miglitol 50 mg tablet 50 mg PO DAILY 04/28/22 Unkn own History Allergy/AdvReac Type Severity Reaction Status Date / Time levofloxacin (From [facility]) Allergy Vomiting Verified 06/25/24 21:45 Surgical History History of ankle surgery S/P cholecystectomy History of repair of hiatal hernia Social History household members: spouse Smoking Status: Former smoker how long ago did patient quit smoking: Quit 29 years prior, smoked 1 ppd until quit. alcohol intake: current details: Previously reported 12 pack beer weekly, prior suspicions EtOH abuse. substance use type: does not use ROS ROS Narrative Review of Systems: Constitutional: Patient denies fever or chills. Eyes: Patient denies changes in vision or discharge from eyes. ENT: Patient denies runny nose, sore throat or ear pain. Resp: Patient denies SOB or cough. CV: Patient denies chest pain, palpitations or heart racing. GI: Patient denies abdominal pain, nausea, vomiting, diarrhea or constipation. : Patient denies dysuria or hematuria. MSK: Patient admits to severe Left hip pain with inability to ambulate with superficial abrasion over the Left forearm. Skin: Patient denies rash, abscess, wounds or jaundice. Psych: Patient denies symptoms of uncontrolled depression or anxiety. Neuro: Patient denies headache, paresthesias or focal neurologic deficits. Allergy: Patient denies lip swelling, tongue swelling or urticaria. Hematology: Patient denies easy bleeding or easy bruisability. Endocrinology: Patient denies polyuria, polydipsia, polyphagia or heat/cold intolerance. 14 point ROS otherwise negative except for positives noted above in HPI. Vital Signs Vital Signs Vital Signs: 06/25/24 21:46 06/25/24 21:46 06/25/24 23:42 Temperature 97.8 F Temperature Source Oral Pulse Rate 78 85 Respiratory Rate 18 16 Respiratory Effort Normal Non-Labored Respiratory Depth Normal Respiratory Pattern Normal Blood Pressure 134/68 H 121/64 H Blood Pressure Mean 90 83 Pulse Ox 96 90 Oxygen Delivery Method Room Air Room Air Room Air Oxygen Flow Rate (L/min) 06/26/24 00:05 06/26/24 00:06 Temperature Temperature Source Pulse Rate Respiratory Rate Respiratory Effort Respiratory Depth Respiratory Pattern Blood Pressure Blood Pressure Mean Pulse Ox 81 92 Oxygen Delivery Method Room Air Nasal Cannula Oxygen Flow Rate (L/min) 2 Weight Weight: 162 lb 7.691 oz Body Mass Index (BMI) 27.0 Physical Exam Const alert and oriented x3 Constitutional Narrative: Significant distress noted secondary to Left hip pain. General Appearance: cooperative HEENT normocephalic, head/scalp atraumatic, hearing grossly normal bilaterally and moist oral mucous membranes Eyes PERRL, EOMs intact bilaterally and conjunctivae normal Neck no lymphadenopathy and supple Resp normal respiratory effort, no retractions, no use of accessory muscles and clear to auscultation bilaterally Cardio regular rate and regular rhythm GI normal to inspection, nondistended, normoactive bowel sounds, soft to palpation, non-tender and non-distended Extremity Extremity Narrative: LLE shortened and externally rotated with positive log-roll. Sensation and pulses intact throughout with no signs of vascular compromise. Skin Skin Narrative: Patient has a superficial abrasion of the Left forearm. Neuro oriented x3, CN's II-XII intact bilaterally, moves all extremities and no focal motor deficits Sensorium / Orientation: awake, alert, oriented to person, oriented to place and oriented to time Speech: speech normal Psych affect normal Results Medical Records Data Attestation: I reviewed the patient's medical records Lab / Micro Data Attestation: I reviewed the patient's lab results. 06/26/24 02:21 06/26/24 02:21 Labs: Laboratory Results - last 24 hr 06/25/24 20:45: Urine Color Yellow, Urine Clarity Clear, Urine pH 6.5, Ur Specific [place] 1.010, Urine Protein 30 H, Urine Glucose (UA) Normal, Urine Ketones Negative, Urine Occult Blood 10 H, Urine Nitrite Negative, Urine Bilirubin Negative, Urine Urobilinogen Normal, Ur Leukocyte Esterase Negative, Urine RBC 0-5 SEEN, Urine WBC 0-5 SEEN, Ur Squamous Epith Cells 0-5 SEEN, Urine Bacteria 1+, Urine Mucus 0 SEEN 06/25/24 22:15: WBC 9.3, RBC 3.88 L, Hgb 12.9 L, Hct 37.7 L, MCV 97.2 H, MCH 33.2 H, MCHC 34.2, RDW Std Deviation 43.9, RDW Coeff of Fay 12.4, Plt Count 238, MPV 9.5, Immature Gran % (Auto) 1.200 H, Neut % (Auto) 59.3, Lymph % (Auto) 25.6, [place] % (Auto) 8.3, Eos % (Auto) 4.6, Baso % (Auto) 1.0, Absolute Neuts (auto) 5.5, Absolute Lymphs (auto) 2.39, Nucleated RBC % 0, Sodium 127 L, Potassium 3.5, Chloride 94 L, Carbon Dioxide 19.2 L, Anion Gap 14, BUN 7, C reatinine 0.63 L, Estim Creat Clear Calc 61.93, Est GFR (MDRD) Non-Af 95, BUN/Creatinine Ratio 11.6, Glucose 94, Calcium 7.9, Total Bilirubin 0.50, Direct Bilirubin 0.24, AST 94 H, ALT 29, Alkaline Phosphatase 86, Total Protein 6.3, Albumin 3.9, Globulin 2.4 Imaging Radiology Impression Brain CT 06/25/24 22:04 IMPRESSION: 1. No acute intracranial finding. 2. Findings of chronic microvascular ischemic changes and age-related changes. Reading Location: [facility] Hip/Pelvis X-Ray 06/25/24 22:04 IMPRESSION: Acute fracture of the left femoral neck. Dr. Rivera discussed these findings with Dr. Hurt at 11:40 pm on 06/25/24. Reading Location: [facility] Cervical Spine CT 06/25/24 22:05 IMPRESSION: NO ACUTE CERVICAL FRACTURE. DEGENERATIVE CHANGES. Reading Location: [facility] Chest/Abdomen/Pelvis CT 06/25/24 22:05 IMPRESSION: CT chest: 1. No acute thoracic finding. 2. Mild cardiomegaly. 3. Chronic T7 and T8 compression fracture deformities. CT abdomen/pelvis: 1. Acute left femoral neck fracture. Small hematoma along the left posterolateral soft tissues. 2. No visceral abdominopelvic injury. Reading Location: [facility] Assessment & Plan Assessment/Plan (1) Closed left hip fracture: QUALIFIERS: Encounter type: initial encounter Qualified Code(s): S72.002A - Fracture of unspecified part of neck of left femur, initial encounter for closed fracture (2) Fall: QUALIFIERS: Encounter type: initial encounter Qualified Code(s): W19.XXXA - Unspecified fall, initial encounter (3) Alcohol abuse: (4) Hyponatremia: (5) Chronic dementia: (6) Essential hypertension: (7) Overweight (BMI 25.0-29.9): PLAN: Plan 1. CT evidence of acute Left Femoral Neck Fracture after Fall down stairs at home - Admit to general medical floor. Keep NPO for planned ORIF in AM by Dr. Thorpe of orthopedics with help appreciated in advance. Give ibuprofen prn for [id number] (level 1-5/10) pain or fever. Give morphine IV prn for severe (level 6-10/10) pain. 2. Acute EtOH Intoxication with JOVANI of 72.8 mg/dL present on admission in the setting of Chronic EtOH Abuse triggering #1 - EtOH Cessation will be strongly encouraged. We will start treatment with EtOH detoxification protocol primarily consisting of phenobarbital taper. Check B12 and Folate levels to evaluate for possible deficiency. We will minimize potentially hepatotoxic agents. 3. Hyponatremia of 127 mmol/L likely due to Beer Potomania due to #2 - Give NS IVF and recheck level in AM to follow trend. Check serum and urine osmolality. 4. Chronic dementia; on donepezil adding to the medical complexity of #1 - #3 - Maintain donepezil as before. 5. Essential Hypertension; on amlodipine - Resume amlodipine as before plus give prn IV hydralazine for systolic blood pressure > 160 mmHg. 6. Overweight; with BMI of 27 this admission - Weight loss will be recommended. Check TSH. 7. DM-2; of unknown control on miglitol - Keep NPO until ORIF done. FSBS q. 6 hours plus lowest intensity SSI. Check HgbA1c to objectively assess quality of diabetic control. 8. History of tobacco abuse; allegedly quit ~29 years ago - Noted. 9. Depression with anxiety; on sertraline - Continue current treatment. 10. History of hiatal hernia; s/p repair - Noted. 11. History of cholecystectomy - Noted for the sake of completeness. 12. GERD; on pantoprazole - Maintain PPI. 13. OA; with history of Right ankle surgery and CT evidence of old T7-T8 compression fractures - Give ibuprofen prn according to pain scale outlined in #1. 14. DVT prophylaxis - SCD on RLE only. We will avoid preoperative blood thinners in cases of traumatic fractures due to increased risk of bleeding complications. Orthopod to determine postoperative DVT prophylaxis. Total time: Approximately (but not less than) 75 minutes. Charges/Coding Visit Charges Inpatient E&M: 89774 Init Hosp L3
[2024-06-26 02:49] LABS: Magnesium 1.8 mg/dL (1.5-2.2)
[2024-06-26 02:50] LABS: Prothrombin Time (Protime)PT. 12.9 SECONDS (11.7-14.9)
[2024-06-26 03:31] LABS: ALB/GLOB Ratio 1.6 RATIO (0.9-2.4); AST(SGOT) 459 U/L (<=37); Alanine Aminotransfer ALT/SGPT 125 U/L (<=46); Albumin, Serum 3.9 g/dL (3.4-4.8); Alkaline Phosphatase 124 U/L (40-129); Anion Gap 14 (5-15); BUN 7 mg/dL (4-19); BUN/Creat Ratio 11.6 RATIO (10-20); Calcium,Total 7.9 mg/dL (7.6-11.0); Carbon Dioxide 20.3 mmol/L (21.0-32.0); Chloride 93 mmol/L (98-108); Creatinine, Serum 0.56 mg/dL (0.70-1.20); EST Glomerular Filtration Rate 98 (>60); Estimated Creatinine Clearance 59.61 ml/min (50-250); Globulin 2.4 g/dL (2.2-4.2); Glucose 101 mg/dL (70-99); Phosphorus 3.2 mg/dL (2.7-4.5); Potassium 3.5 mmol/L (3.3-5.1); Protein, Total 6.2 g/dL (5.9-8.4); Sodium Level 127 mmol/L (133-145); Total Bilirubin 1.08 mg/dL (0.00-1.30)
[2024-06-26 03:43] LABS: Alcohol, Blood (Medical)-Serum 72.8 mg/dL (<=10.0)
[2024-06-26] MEDS: 0.9% Saline Lock 10 ML Syringe IV ×4 (03:49→22:55)
[2024-06-26] MEDS: Morphine 2 MG/ML Syringe IV ×4 (03:50→22:50)
[2024-06-26] MEDS: 0.9% Normal Saline (1000mL) 1,000 ML 70 ML IV (03:51)
[2024-06-26] MEDS: Phenobarbital 32.4 MG Tablet PO ×6 (03:51→22:50)
[2024-06-26 04:04] LABS: Absolute Lymphocyte Count 0.94 X10^3/uL (0.83-4.51); Absolute Neutrophil Count 7.4 X10^3/uL (2.0-7.7); Basophil# 0.06 X10^3/uL; Basophil% 0.6 % (0-1); Eosinophil# 0.02 X10^3/uL; Eosinophils% 0.2 % (0-5); Hematocrit 35.7 % (40-54); Hemoglobin 12.5 g/dL (13.0-16.5); Lymphocyte # 0.94 X10^3/ul (0.83-4.51); Lymphocyte % 10.1 % (19-41); Mean Corpuscular Hgb 33.8 pg (27.0-32.0); Mean Corpuscular Volume 96.5 fL (80-94); Mean Platelet Vol. 10.1 fl (6.2-12.0); Monocyte# 0.84 X10^3/uL; NRBC Flagged by Analyzer 0 % (0-5); Neutrophil # 7.43 X10^3/uL (2.7-7.7); Neutrophil % 79.6 % (47-70); Platelet Count 264 K/mm3 (150-450); RBC Distribution Width CV 12.2 % (11.6-14.6); RBC Distribution Width SD 43.2 fl (35.1-43.9); White Blood Count 9.3 K/mm3 (4.4-11.0)
[2024-06-26 04:12] LABS: Vitamin B12 1868 pg/mL (180-914)
[2024-06-26 04:23] LABS: Hemoglobin A1c 4.8 % (<=5.6)
[2024-06-26 04:55] LABS: Osmolality, Urine 466 mOsm/KG
[2024-06-26 05:12] LABS: Amphetamine Urine NEGATIVE (<1000 ng/mL); Barbiturate Urine NEGATIVE (< 200 ng/mL); Benzodiazepine Urine NEGATIVE (< 200 ng/mL); Buprenorphine Urine NEGATIVE (< 200 ng/mL); Cocaine Urine NEGATIVE (< 300 ng/mL); Fentanyl, Urine PRESUMPTIVE POSITIVE; Methadone Urine NEGATIVE (< 300 ng/mL); Opiates Urine PRESUMPTIVE POSITIVE (< 300 ng/mL); Oxycodone, Urine NEGATIVE (< 100 ng/mL); PCP Urine NEGATIVE (< 25 ng/mL); THC Urine NEGATIVE (< 50 ng/mL)
[2024-06-26 05:23] LABS: Osmolality, Serum 288 mOsm/KG (280-301)
[2024-06-26 07:12] LABS: Bedside Glucose 114 mg/dL (74-106)
--- NOTE | 2024-06-26 10:58 | CASEMGMT ---
NATALIE SOUSA Assessment Face to Face with patient for initial transition planning/care coordination assessment. NATALIE SOUSA introduced self and role at [facility], pt voices understanding. Pt is A&Ox4 and is resting comfortably in bed and is calm. Pt at bedside. Care providers, pharmacy, and demographics verified. Admitting dx: Lt Femoral Neck Fracture after Fall LACE Strata: 2 PCP: Karla Barton Specialists: Maurilio (Ortho) Preferred Pharmacy: [facility] Insurance: [facility] Prescription Benefit: Yes LNOK: Radha Lozano (), Cindy Olivarez (Daughter) Living Arrangements: Pt lives with his in a single story ranch style home with one step to enter ADLs/IADLs: Reports independent at baseline Transportation: Self, daughter. Denies concerns DME: [employer] with sufficient supplies. Cane. FWW. W/C. Walk in shower with shower chair and grab bars. Medical alert system resources provided. HHC/SNF: Denies history. Pt states that his daughter works @ [employer] ETOH: Pt states that he drinks 6-7 beers per day and declines wanting resources regarding this Pt?s goal: Return to PLOF Plan: TBD. Follow for HH vs SNF. Current 6-Click score is 7. Pt is scheduled for surgery today. PT to follow. Pt states that if he qualifies for a SNF that he would like to go to [facility]. Care Management to follow. Pt and pt deny further concerns at this time. Report given to TESFAYE ESTRADA CM. Vicente Ashton RN, CM
[2024-06-26 11:09] LABS: Bedside Glucose 99 mg/dL (74-106)
--- NOTE | 2024-06-26 12:17 | PCM.PRE.AN2 ---
ASA Classification* ASA Classification ASA Classification: 3 and E Assessment & Plan Anesthesia* Anesthesia Assessment Anesthesia Assessment: Discussed sedation and/or anesthesia options, risks, benefits, and alternatives with patient/parents/legal guardian/POA. Questions invited. The patient/parents/legal guardian/POA seems to understand and agrees to proceed with anesthesia plan. Reviewed the physical assessment, medical history, allergy history and patient home medications list prior to surgery/procedure/anesthetic and documented any changes. Performed airway and anesthesia risk assessments. Procedural Plan Procedural Plan:: Surgeon canceled surgery (Patient had elevated temperature at 101.2. COVID and flu panel are all negative. This increases likelihood of a bacterial infection and surgeon and hospitalist electing to wait on the surgery until bacterial cultures are obtained.) Anesthesia Type Anesthesia Type: General (Surgery was canceled) History Source History Obtained from:: Patient and Chart Anesthesia Focused Assessment* Temperature: 101.2 F Pulse Rate: 107 Blood Pressure: 144/67 Respiratory Rate: 16 Pulse Ox: 96 Oxygen Delivery Method: Nasal Cannula Oxygen Flow Rate (L/min): 3 Airway Assessment Mouth opens: >3 cm Mallampati Score: III Teeth Condition: Dentures (Patient has full upper dentures) and Missing (Patient is edentulous on the bottom.) Neck Range of motion (ROM): Limited ROM Focused Labs Anesthesia Preop lab: CBC WBC 5.8 K/mm3 (4.4-11.0) 07/01/24 06:27 07/01/24 RBC 2.78 M/mm3 (4.6-6.2) L 07/01/24 06:07/01/24 Hgb 9.2 g/dL (13.0-16.5) L 07/01/24 06:27 07/01/24 Hct 26.5 % (40-54) L 07/01/24 06:27 07/01/24 Plt Count 237 K/mm3 (150-450) 07/01/24 06:27 07/01/24 CHEMISTRY Potassium 3.2 mmol/L (3.3-5.1) L 07/01/24 06:27 07/01/24 Sodium 133 mmol/L (133-145) 07/01/24 06:27 07/01/24 Magnesium 1.9 mg/dL (1.5-2.2) 07/01/24 06:27 07/01/24 Phosphorus 3.1 mg/dL (2.7-4.5) 07/01/24 06:27 07/01/24 BUN 10 mg/dL (4-19) 07/01/24 06:27 07/01/24 Creatinine 0.60 mg/dL (0.70-1.20) L 07/01/24 06:07/01/24 Glucose 92 mg/dL (70-99) 07/01/24 06:07/01/24 POC Glucose 156 mg/dL (74-106) H 06/26/24 17:43 06/26/24 TSH 1.910 uIU/mL (0.300-4.200) 06/26/24 02:21 06/26/24 COAG PT 12.9 SECONDS (11.7-14.9) 06/26/24 02:21 06/26/24 Pre-Assessment Diagnosis/Proposed Procedure Planned Operative Procedure(s): Left hip hemiarthroplasty. Anesthesia History Anesthesia History - reimbursement representative: Anesthesia History - reimbursement representative Hx Hospitalization Any Problems With Anesthesia No 06/26/24 03:54 Cholinesterase deficiency No 06/26/24 03:54 You/Your Family Experience No 06/26/24 03:54 fever (hyperthermia) with Relationship Recent Exposure to Contagious No 06/26/24 03:54 Disease Does patient have nerve No 06/26/24 03:54 stimulator Patient instructed to have No 06/26/24 03:54 device shut off --Does patient have Pacemaker No 06/26/24 10:45 or ICD? When Was Last Pacemaker Check QUESTION #4 FULL TEXT: You/Your Family Experience fever (hyperthermia) with Anesthesia Last Oral Intake Last Oral intake: Last Oral Intake NPO since 00:00 06/26/24 10:45 Meds taken in AM with sips of No 06/26/24 10:45 water? Meds patient instructed to take am of surgery PONV PONV - reimbursement representative: PONV - reimbursement representative Female HX of Motion Sickness HX of N/V After Surgery Non-Smoker Duration of Surgery greater than 60 minutes Number of Risk Factors PONV Score Height & Weight Height & Weight: Anesthesia: Height & Weight Height 5 ft 4 in 06/26/24 12:02 Weight: 65 kg 06/26/24 12:02 Body Mass Index (BMI) 24.5 06/26/24 10:45 Respiratory Assessment Respiratory Assessment - reimbursement representative: Respiratory Tract Infection Hx - reimbursement representative Hx Respiratory Tract Infection No 06/26/24 03:54 Any additional information?: Yes Hx Respiratory Tract Infection: Yes (Patient states allergies are acting up.) STOP Sleep Apnea STOP Sleep Apnea - reimbursement representative: STOP Sleep Apnea - reimbursement representative Hx Hypertension Yes 06/26/24 02:45 Hx Sleep Apnea No 06/26/24 02:45 CPAP BIPAP Do you snore loudly (louder Yes 06/26/24 02:45 than talking or can be heard Do you often feel tired/ Yes 06/26/24 02:45 fatigued/ sleepy during daytime? Has anyone observed you stop No 06/26/24 02:45 breathing during sleep? STOP Results Positive 06/26/24 02:45 QUESTION #5 FULL TEXT : Do you snore loudly (louder than talking or can be heard through closed doors)? 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 Specify any problems Hx of Preganancy in last 3 N/A 06/26/24 02:45 Months Nurse Filling Out Transfusion EVIZZO 06/26/24 02:45 & Questions: Date: 06/26/24 06/26/24 02:45 Time: 03:14 06/26/24 02:45 Patient unable to answer at this time (ie. confused, unrespo /Reproduction History /Reproductive History - reimbursement representative: /Reproductive Hx- reimbursement representative Hx Now No 06/26/24 03:54 Gestational Age (in weeks): EDC: Hx Hx Para Hx Section SAB No 06/26/24 03:54 Active Medications Active Medications: Current Medications Generic Name Dose Route Start Last Admin Trade Name Freq PRN Reason Stop Dose Admin Amlodipine Besylate 5 mg 06/26/24 10:00 Amlodipine 5 Mg Tablet PO DAILY [facility] Protocol Aspirin 81 mg 06/26/24 08:00 Aspirin E.C. 81 Mg Tablet PO BREAKFAST [facility] Dicyclomine HCl 20 mg 06/26/24 03:00 Dicyclomine 10 Mg Capsule PO Q6H PRN PRN abdominal discomfort Donepezil HCl 10 mg 06/26/24 10:00 Donepezil Hcl 10 Mg Tablet PO DAILY [facility] Folic Acid 1 mg 06/26/24 08:00 Folic Acid 1 Mg Tablet PO DAILY@0800 [facility] Gabapentin 300 mg 06/26/24 03:00 Gabapentin 300 Mg Capsule PO Q8H PRN PRN moderate to severe anxiety Glucagon 1 mg 06/26/24 03:00 Glucagon 1 Mg/Ml Syringe IM X1 PRN HYPOGLYCEMIA Protocol Hydralazine HCl 5 mg 06/26/24 03:00 Hydralazine 20 Mg/Ml Vial IV Q8H PRN PRN SBP GREATER THAN 160 Protocol Dextrose 250 mls @ 0 mls/hr 06/26/24 03:00 Dextrose 10%-Water IV .Q0M PRN HYPOGLYCEMIA Protocol As Directed Sodium Chloride 1,000 mls @ 15 mls/hr 06/26/24 10:50 IV .Q48H [facility] Cefazolin Sodium 2 gm/ Sodium 110 mls @ 150 mls/hr 06/26/24 12:06 Chloride IV 06/26/24 12:49 X1 ONE Ibuprofen 200 mg 06/26/24 03:00 Ibuprofen 200 Mg Tablet PO Q6H PRN PRN Pain 1-5/10 or Fever Insulin Human Lispro 0 unit 06/26/24 06:00 06/26/24 06:56 Insulin Lispro 100 Unit/Ml Insuln.Pen SC Not Given Q6 [facility] Protocol Loperamide HCl 2 mg 06/26/24 03:00 Loperamide 2 Mg Capsule PO Q4H PRN PRN LS Morphine Sulfate 2 mg 06/26/24 03:00 06/26/24 10:05 Morphine 2 Mg/Ml Syringe IV 2 mg Q4H PRN PRN Administration Pain Score 6-10 Ondansetron HCl 8 mg 06/26/24 03:00 Ondansetron 8 Mg Tablet PO Q8H PRN PRN NAUSEA Pantoprazole Sodium 40 mg 06/26/24 10:00 Pantoprazole Sodium 40 Mg Tablet PO DAILY [facility] Phenobarbital 97.2 mg 06/26/24 03:00 06/26/24 06:57 Phenobarbital 32.4 Mg Tablet PO 06/30/24 10:59 97.2 mg Q4H [facility] Administration Taper Promethazine HCl 12.5 mg 06/26/24 03:00 Promethazine 25 Mg/Ml Syringe IM Q6H PRN PRN NAUSEA/VOMITING Sertraline HCl 25 mg 06/26/24 10:00 Sertraline 50 Mg Tablet PO DAILY [facility] Sodium Chloride 10 - 40 ml 06/26/24 03:00 06/26/24 10:06 0.9% Saline Lock 10 Ml Syringe IV 10 ml UD PRN Administration SALINE FLUSH Thiamine HCl 100 mg 06/26/24 08:00 Thiamine Hydrochloride [facility] Medical History Alcohol abuse GERD (gastroesophageal reflux disease) Former tobacco use Anxiety and depression Dementia HTN (hypertension) Home Medications ?Medication ?Instructions ?Recorded ?Last Taken ?Type amlodipine 5 mg tablet 5 mg PO DAILY blood pressure 05/11/17 Unknown History donepezil 10 mg tablet 10 mg PO DAILY memory 05/11/17 Unknown History pantoprazole 40 mg tablet,delayed 40 mg PO DAILY reflux 05/11/17 Unknown History release sertraline 25 mg tablet 25 mg PO DAILY 11/30/18 Unknown History aspirin 81 mg tablet,delayed 81 mg PO DAILY 04/28/22 Unknown History release miglitol 50 mg tablet 50 mg PO DAILY 04/28/22 Unknown History acetaminophen 500 mg tablet 1,000 mg (2 x 500 mg) PO Q8 #0 tabs 07/01/24 Unknown Rx albuterol sulfate 2.5 mg/3 mL 2.5 mg (3 mL) inhalation Q2H PRN 07/01/24 Unknown Rx (0.083 %) solution for nebulization PRN SOB &/OR WHEEZING #0 mL apixaban 5 mg tablet (Eliquis) 5 mg PO BID #180 tabs 07/01/24 Unknown Rx calcium carbonate 500 mg (2.5 x 200 mg calcium (500 07/01/24 Unknown Rx mg)) PO TIDCM #0 tabs folic acid 1 mg tablet 1 mg PO DAILY@0800 #0 tabs 07/01/24 Unknown Rx food supplemt, lactose-reduced 120 ml PO TIDCM #0 mL 07/01/24 Unknown Rx 0.08 gram-1.5 kcal/mL oral liquid (Ensure Plus High Protein) ondansetron HCl 8 mg tablet 8 mg PO Q8H PRN PRN Nausea #0 tabs 07/01/24 Unknown Rx oxycodone 5 mg tablet 5 mg PO Q4H PRN PRN Pain Score 07/01/24 Unknown Rx 4-10 3 days #14 tabs potassium chloride 20 mEq 20 meq PO BIDCM #0 tabs 07/01/24 Unknown Rx tablet,extended release(part/cryst) sennosides 8.6 mg-docusate sodium 2 tab PO BID #0 tabs 07/01/24 Unknown Rx 50 mg tablet (Stimulant Laxative Plus) thiamine HCl (vitamin B1) 100 mg 100 mg PO DAILYCM #0 tabs 07/01/24 Unknown Rx tablet Allergy/AdvReac Type Severity Reaction Status Date / Time levofloxacin (From Levaquin) Allergy Vomiting Verified 06/25/24 21:45 Surgical History History of ankle surgery S/P cholecystectomy History of repair of hiatal hernia Social History household members: spouse Smoking Status: Former smoker how long ago did patient quit smoking: Quit 29 years prior, smoked 1 ppd until quit. alcohol intake: current details: Previously reported 12 pack beer weekly, prior suspicions EtOH abuse. substance use type: does not use Review of Systems (Anesthesia) ROS Narrative System reviewed and no additional complaints, except as documented.
--- NOTE | 2024-06-26 12:27 | CONS.ORTHO ---
HPI Consult Data Date of Consult: 06/26/24 HPI Narrative Reason for Consultation: Left hip fracture HPI Narrative: Tomasz Quiroz, is a 83 M who presented to [facility] emergency department last evening after a fall down a flight of stairs. Patient admits to drinking 3-4 beers prior to the injury. He is a daily drinker and drinks approximately this amount every day. He denies any antecedent problems with his left hip. Community ambulator without assistive device. Patient was admitted under the service of the hospitalist last evening. I saw the patient in consultation. Patient was noted to have a fever starting midmorning. Patient denies any symptoms of illness including fevers, chills, nausea vomiting, chest pain, diarrhea, sinus pressure or pain, nasal drainage, cough. He states other than his left hip, he feels normal. He denies any anesthetic complication in the past. Denies any history of DVT or PE. [facility] Medical History Alcohol abuse GERD (gastroesophageal reflux disease) Former tobacco use Anxiety and depression Dementia HTN (hypertension) Home Medications ?Medication ?Instructions ?Recorded ?Last Taken ?Type amlodipine 5 mg tablet 5 mg PO DAILY blood pressure 05/11/17 Unknown History donepezil 10 mg tablet 10 mg PO DAILY memory 05/11/17 Unknown History pantoprazole 40 mg tablet,delayed 40 mg PO DAILY reflux 05/11/17 Unknown History release sertraline 25 mg tablet 25 mg PO DAILY 11/30/18 Unknown History aspirin 81 mg tablet,delayed 81 mg PO DAILY 04/28/22 Unknown History release miglitol 50 mg tablet 50 mg PO DAILY 04/28/22 Unknown History Allergy/AdvReac Type Severity Reaction Status Date / Time levofloxacin (From Levaquin) Allergy Vomiting Verified 06/25/24 21:45 Surgical History History of ankle surgery S/P cholecystectomy History of repair of hiatal hernia Social History household members: spouse Smoking Status: Former smoker how long ago did patient quit smoking: Quit 29 years prior, smoked 1 ppd until quit. alcohol intake: current details: Previously reported 12 pack beer weekly, prior suspicions EtOH abuse. substance use type: does not use Vital Signs Vital Signs Vital Signs: 06/25/24 21:46 06/25/24 21:46 06/25/24 23:42 Temperature 97.8 F Temperature Source Oral Pulse Rate 78 85 Respiratory Rate 18 16 Respiratory Effort Normal Non-Labored Respiratory Depth Normal Respiratory Pattern Normal Blood Pressure 134/68 H 121/64 H Blood Pressure Mean 90 83 Blood Pressure Source Blood Pressure Position Blood Pressure Location Pulse Ox 96 90 Oxygen Delivery Method Room Air Room Air Room Air Oxygen Flow Rate (L/min) 06/26/24 00:05 06/26/24 00:06 06/26/24 01:32 Temperature 97.9 F Temperature Source Pulse Rate 84 Respiratory Rate 13 Respiratory Effort Respiratory Depth Respiratory Pattern Blood Pressure 116/72 Blood Pressure Mean 86 Blood Pressure Source Blood Pressure Position Blood Pressure Location Pulse Ox 81 92 96 Oxygen Delivery Method Room Air Nasal Cannula Oxygen Flow Rate (L/min) 2 06/26/24 02:00 06/26/24 02:45 06/26/24 03:48 Temperature 97.6 F L Temperature Source Oral Pulse Rate 87 94 Respiratory Rate 15 20 H Respiratory Effort Normal Non-Labored Respiratory Depth Normal Respiratory Pattern Normal Blood Pressure 121/96 H 138/80 H Blood Pressure Mean 104 99 Blood Pressure Source Monitor Blood Pressure Position Semi-Fowlers Blood Pressure Location Right Arm Pulse Ox 96 96 96 Oxygen Delivery Method Nasal Cannula Nasal Cannula Nasal Cannula Oxygen Flow Rate (L/min) 2 2 2 06/26/24 07:25 06/26/24 08:35 06/26/24 10:45 Temperature 99.9 F H 101.2 F H Temperature Source Temporal Temporal Pulse Rate 103 H 107 H Respiratory Rate 16 16 Respiratory Effort Respiratory Depth Respiratory Pattern Blood Pressure 133/66 H 144/67 H Blood Pressure Mean 88 92 Blood Pressure Source Monitor Monitor Blood Pressure Position Semi-Fowlers Sitting Blood Pressure Location Right Arm Right Arm Pulse Ox 96 95 96 Oxygen Delivery Method Nasal Cannula Room Air Nasal Cannula Oxygen Flow Rate (L/min) 2 3 06/26/24 12:20 Temperature 101.2 F H Temperature Source Pulse Rate 107 H Respiratory Rate 16 Respiratory Effort Respiratory Depth Respiratory Pattern Blood Pressure 144/67 H Blood Pressure Mean Blood Pressure Source Blood Pressure Position Blood Pressure Location Pulse Ox 96 Oxygen Delivery Method Oxygen Flow Rate (L/min) 3 Weight Weight: 143 lb 4.807 oz Body Mass Index (BMI) 24.5 Physical Exam Narrative General -A&Ox3, NAD, appears stated age. Vital signs stable, afebrile. Respiratory -normal work of breathing, no intercostal retractions. CV -pulses regular, brisk capillary refill ?4 limbs. Abdomen-soft, nontender, nondistended. No guarding, rigidity, rebound tenderness. Musculoskeletal/neurologic -full range of motion nontender throughout bilateral upper extremities, right lower extremity with full sensation and strength in all dermatomes and myotomes. No midline cervical tenderness. Left lower extremity-no obvious deformity. Pain with logroll of the left lower extremity. Nontender throughout the left knee femoral shaft, tibial shaft and left foot/ankle. Brisk capillary refill. Sensation intact light touch L3-S1 dermatomes. DF, PF, EHL intact. DP, PT 2+. Pelvis is stable, nontender. Skin is intact without lacerations, abrasions. No ecchymosis noted. Lab / Micro Data 06/26/24 02:21 06/26/24 02:21 Labs: Laboratory Results - last 24 hr 06/25/24 20:45: Urine Color Yellow, Urine Clarity Clear, Urine pH 6.5, Ur Specific [place] 1.010, Urine Protein 30 H, Urine Glucose (UA) Normal, Urine Ketones Negative, Urine Occult Blood 10 H, Urine Nitrite Negative, Urine Bilirubin Negative, Urine Urobilinogen Normal, Ur Leukocyte Esterase Negative, Urine RBC 0-5 SEEN, Urine WBC 0-5 SEEN, Ur Squamous Epith Cells 0-5 SEEN, Urine Bacteria 1+, Urine Mucus 0 SEEN 06/25/24 22:15: WBC 9.3, RBC 3.88 L, Hgb 12.9 L, Hct 37.7 L, MCV 97.2 H, MCH 33.2 H, MCHC 34.2, RDW Std Deviation 43.9, RDW Coeff of Fay 12.4, Plt Count 238, MPV 9.5, Immature Gran % (Auto) 1.200 H, Neut % (Auto) 59.3, Lymph % (Auto) 25.6, [place] % (Auto) 8.3, Eos % (Auto) 4.6, Baso % (Auto) 1.0, Absolute Neuts (auto) 5.5, Absolute Lymphs (auto) 2.39, Nucleated RBC % 0, Sodium 127 L, Potassium 3.5, Chloride 94 L, Carbon Dioxide 19.2 L, Anion Gap 14, BUN 7, Creatinine 0.63 L, Estim Creat Clear Calc 61.93, Est GFR (MDRD) Non-Af 95, BUN/Creatinine Ratio 11.6, Glucose 94, Calcium 7.9, Total Bilirubin 0.50, Direct Bilirubin 0.24, AST 94 H, ALT 29, Alkaline Phosphatase 86, Total Protein 6.3, Albumin 3.9, Globulin 2.4 06/26/24 02:21: WBC 9.3, RBC 3.70 L, Hgb 12.5 L, Hct 35.7 L, MCV 96.5 H, MCH 33.8 H, MCHC 35.0, RDW Std Deviation 43.2, RDW Coeff of Fay 12.2, Plt Count 264, MPV 10.1, Immature Gran % (Auto) 0.500, Neut % (Auto) 79.6 H, Lymph % (Auto) 10.1 L, [place] % (Auto) 9.0, Eos % (Auto) 0.2, Baso % (Auto) 0.6, Absolute Neuts (auto) 7.4, Absolute Lymphs (auto) 0.94, Nucleated RBC % 0, PT 12.9, INR 1.0, Sodium 127 L, Potassium 3.5, Chloride 93 L, Carbon Dioxide 20.3 L, Anion Gap 14, BUN 7, Creatinine 0.56 L, Estim Creat Clear Calc 59.61, Est GFR (MDRD) Non-Af 98, BUN/Creatinine Ratio 11.6, Glucose 101 H, Hemoglobin A1c 4.8 L, Serum Osmolality 288, Calcium 7.9, Phosphorus 3.2, Magnesium 1.8, Total Bilirubin 1.08, AST 459 H, ALT 125 H, Alkaline Phosphatase 124, Total Protein 6.2, Albumin 3.9, Globulin 2.4, Albumin/Globulin Ratio 1.6, Vitamin B12 1868 H, Serum Folate 12.50, TSH 1.910, Ethyl Alcohol 72.8 H 06/26/24 03:40: Urine Osmolality 466, Urine Opiates Screen PRESUMPTIVE POSITIVE, U Buprenorphine Qual NEGATIVE, Ur Oxycodone Screen NEGATIVE, Urine Methadone Screen NEGATIVE, Urine Fentanyl Screen PRESUMPTIVE POSITIVE, Ur Barbiturates Screen NEGATIVE, Ur Phencyclidine Scrn NEGATIVE, Ur Amphetamines Screen NEGATIVE, U Benzodiazepines Scrn NEGATIVE, Urine Cocaine Screen NEGATIVE, U Cannabinoids Screen NEGATIVE 06/26/24 06:52: POC Glucose 114 H 06/26/24 10:40: POC Glucose 99 Imaging Radiology Impression Brain CT 06/25/24 22:04 IMPRESSION: 1. No acute intracranial finding. 2. Findings of chronic microvascular ischemic changes and age-related changes. Reading Location: [facility] Hip/Pelvis X-Ray 06/25/24 22:04 IMPRESSION: Acute fracture of the left femoral neck. Dr. Rivera discussed these findings with Dr. Hurt at 11:40 pm on 06/25/24. Reading Location: [facility] Cervical Spine CT 06/25/24 22:05 IMPRESSION: NO ACUTE CERVICAL FRACTURE. DEGENERATIVE CHANGES. Reading Location: [facility] Chest/Abdomen/Pelvis CT 06/25/24 22:05 IMPRESSION: CT chest: 1. No acute thoracic finding. 2. Mild cardiomegaly. 3. Chronic T7 and T8 compression fracture deformities. CT abdomen/pelvis: 1. Acute left femoral neck fracture. Small hematoma along the left posterolateral soft tissues. 2. No visceral abdominopelvic injury. Reading Location: [facility] Assessment & Plan Assessment/Plan (1) Closed left hip fracture: QUALIFIERS: Encounter type: initial encounter Qualified Code(s): S72.002A - Fracture of unspecified part of neck of left femur, initial encounter for closed fracture PLAN: Patient sustained a displaced left femoral neck fracture -Closed, neurovascularly intact -Isolated injury -Recommending surgical intervention in the form of left hip hemiarthroplasty -I discussed the procedure-its risks, benefits and alternative. Risks include but are not limited to bleeding, infection, loss of life or limb, risk of anesthesia, persistent pain or disability, need for additional surgery, instability, leg length discrepancy, failure of orthopedic hardware, neurovascular injury, DVT or PE. Patient expressed understanding these risks and wished proceed with surgery. -Maintenance IV fluids, clear liquid diet after midnight n.p.o. at 2 hours prior to surgery -Type and screen -2 g Ancef on-call to the OR -Bedrest, heel protectors Discussed fever with the patient as well as his hospitalist, Dr. Damian. She recommended initial evaluation with COVID, flu, RSV swab and respiratory panel. Rapid swabs were normal. Respiratory panel is pending. I recommended we postpone surgery for further workup regarding fever of unknown origin. Tentatively plan for surgery tomorrow afternoon. Thank you for this consultation.
[2024-06-26] MEDS: 0.9% Normal Saline (1000mL) 1,000 ML 250 ML IV (12:51)
[2024-06-26] MEDS: Morphine 4 MG/ML Syringe IV (14:16)
--- NOTE | 2024-06-26 14:50 | RAD_ITS ---
PROCEDURE: CHEST 1 VIEW (PORTABLE) 06/26/2024 REASON FOR EXAM: HYPOXIA TECHNIQUE: Frontal view of the chest. COMPARISON: Chest x-ray dated 08/26/2020. FINDINGS: The cardiac silhouette is within normal limits. No focal infiltrate or consolidation is seen within the lungs. No pneumothorax identified. Surgical clips seen within right upper quadrant, likely from prior cholecystectomy procedure. RAD/Chest 1 View (Portable) IMPRESSION: No focal infiltrate or consolidation is seen within the lungs. No pneumothorax . Reading Location: [id number]
[2024-06-26 14:54] LABS: Erythrocyte Sedimentation Rate < 1 mm/hr (0-20)
[2024-06-26] MEDS: Pantoprazole Sodium 40 MG Tablet PO (16:14)
[2024-06-26] MEDS: Aspirin E.C. 81 MG Tablet PO (16:14)
[2024-06-26] MEDS: Thiamine Hydrochloride 100 MG Tablet PO (16:15)
[2024-06-26] MEDS: Folic Acid 1 MG Tablet PO (16:15)
[2024-06-26] MEDS: Sertraline 50 MG Tablet 25 MG PO (16:15)
[2024-06-26] MEDS: Donepezil HCl 10 MG Tablet PO (16:15)
[2024-06-26] MEDS: amLODIPine 5 MG Tablet PO (16:15)
[2024-06-26 16:25] LABS: Bedside Glucose 109 mg/dL (74-106)
--- NOTE | 2024-06-26 17:37 | PCM.PN.HOSP ---
Reason for Visit Reason for Visit: Left hip pain after fall down steps Subjective Subjective Patient went down for surgery however developed a fever in preop so surgery was held. Thus far workup is unremarkable. Patient clinically looks fine. No complaints other than his hip pain. Objective Data Objective Data Vital Signs: Vital Signs Temp Pulse Resp BP Pulse Ox O2 Del Method O2 Flow Rate 99.4 F H 98 18 153/74 H 94 Nasal Cannula 2 06/26/24 15:14 06/26/24 15:14 06/26/24 15:14 06/26/24 15:14 06/26/24 16:33 06/26/24 16:33 06/26/24 16:33 Oxygen Flow Rate (L/min) 2 Oxygen Delivery Method Nasal Cannula Weight: 65 kg Body Mass Index (BMI) 24.5 Intake & Output: Intake and Output for Last 24 Hours 06/24/24 06/25/24 06/26/24 23:59 23:59 23:59 Intake Total 0 / 0 1442.17 / 1442.17 Output Total 400 / 400 Balance 0 / 0 1042.17 / 1042.17 Lab / Micro Data 06/26/24 02:21 06/26/24 02:21 Labs: Laboratory Results - last 24 hr 06/25/24 20:45: Urine Color Yellow, Urine Clarity Clear, Urine pH 6.5, Ur Specific [place] 1.010, Urine Protein 30 H, Urine Glucose (UA) Normal, Urine Ketones Negative, Urine Occult Blood 10 H, Urine Nitrite Negative, Urine Bilirubin Negative, Urine Urobilinogen Normal, Ur Leukocyte Esterase Negative, Urine RBC 0-5 SEEN, Urine WBC 0-5 SEEN, Ur Squamous Epith Cells 0-5 SEEN, Urine Bacteria 1+, Urine Mucus 0 SEEN 06/25/24 22:15: WBC 9.3, RBC 3.88 L, Hgb 12.9 L, Hct 37.7 L, MCV 97.2 H, MCH 33.2 H, MCHC 34.2, RDW Std Deviation 43.9, RDW Coeff of Fay 12.4, Plt Count 238, MPV 9.5, Immature Gran % (Auto) 1.200 H, Neut % (Auto) 59.3, Lymph % (Auto) 25.6, Holmes % (Auto) 8.3, Eos % (Auto) 4.6, Baso % (Auto) 1.0, Absolute Neuts (auto) 5.5, Absolute Lymphs (auto) 2.39, Nucleated RBC % 0, Sodium 127 L, Potassium 3.5, Chloride 94 L, Carbon Dioxide 19.2 L, Anion Gap 14, BUN 7, Creatinine 0.63 L, Estim Creat Clear Calc 61.93, Est GFR (MDRD) Non-Af 95, BUN/Creatinine Ratio 11.6, Glucose 94, Calcium 7.9, Total Bilirubin 0.50, Direct Bilirubin 0.24, AST 94 H, ALT 29, Alkaline Phosphatase 86, Total Protein 6.3, Albumin 3.9, Globulin 2.4 06/26/24 02:21: WBC 9.3, RBC 3.70 L, Hgb 12.5 L, Hct 35.7 L, MCV 96.5 H, MCH 33.8 H, MCHC 35.0, RDW Std Deviation 43.2, RDW Coeff of Fay 12.2, Plt Count 264, MPV 10.1, Immature Gran % (Auto) 0.500, Neut % (Auto) 79.6 H, Lymph % (Auto) 10.1 L, Holmes % (Auto) 9.0, Eos % (Auto) 0.2, Baso % (Auto) 0.6, Absolute Neuts (auto) 7.4, Absolute Lymphs (auto) 0.94, Nucleated RBC % 0, ESR < 1, PT 12.9, INR 1.0, Sodium 127 L, Potassium 3.5, Chloride 93 L, Carbon Dioxide 20.3 L, Anion Gap 14, BUN 7, Creatinine 0.56 L, Estim Creat Clear Calc 59.61, Est GFR (MDRD) Non-Af 98, BUN/Creatinine Ratio 11.6, Glucose 101 H, Hemoglobin A1c 4.8 L, Serum Osmolality 288, Calcium 7.9, Phosphorus 3.2, Magnesium 1.8, Total Bilirubin 1.08, AST 459 H, ALT 125 H, Alkaline Phosphatase 124, Total Protein 6.2, Albumin 3.9, Globulin 2.4, Albumin/Globulin Ratio 1.6, Vitamin B12 1868 H, Serum Folate 12.50, TSH 1.910, Ethyl Alcohol 72.8 H 06/26/24 03:40: Urine Osmolality 466, Urine Opiates Screen PRESUMPTIVE POSITIVE, U Buprenorphine Qual NEGATIVE, Ur Oxycodone Screen NEGATIVE, Urine Methadone Screen NEGATIVE, Urine Fentanyl Screen PRESUMPTIVE POSITIVE, Ur Barbiturates Screen NEGATIVE, Ur Phencyclidine Scrn NEGATIVE, Ur Amphetamines Screen NEGATIVE, U Benzodiazepines Scrn NEGATIVE, Urine Cocaine Screen NEGATIVE, U Cannabinoids Screen NEGATIVE 06/26/24 06:52: POC Glucose 114 H 06/26/24 10:40: POC Glucose 99 06/26/24 16:07: POC Glucose 109 H Micro: Microbiology 06/26/24 12:30 Mucosa - Nose Respiratory Panel (PCR) - Final 06/26/24 12:30 Mucosa - Nose SARS-CoV-2, Influenza & RSV (PCR) - Final Radiography Diagnostic Testing: Radiology Impression Brain CT 06/25/24 22:04 IMPRESSION: 1. No acute intracranial finding. 2. Findings of chronic microvascular ischemic changes and age-related changes. Reading Location: [facility] Hip/Pelvis X-Ray 06/25/24 22:04 IMPRESSION: Acute fracture of the left femoral neck. Dr. Rivera discussed these findings with Dr. Hurt at 11:40 pm on 06/25/24. Reading Location: [facility] Cervical Spine CT 06/25/24 22:05 IMPRESSION: NO ACUTE CERVICAL FRACTURE. DEGENERATIVE CHANGES. Reading Location: [facility] Chest/Abdomen/Pelvis CT 06/25/24 22:05 IMPRESSION: CT chest: 1. No acute thoracic finding. 2. Mild cardiomegaly. 3. Chronic T7 and T8 compression fracture deformities. CT abdomen/pelvis: 1. Acute left femoral neck fracture. Small hematoma along the left posterolateral soft tissues. 2. No visceral abdominopelvic injury. Reading Location: [facility] Chest X-Ray 06/26/24 14:50 IMPRESSION: No focal infiltrate or consolidation is seen within the lungs. No pneumothorax. Reading Location: [id number] Assessment & Plan Assessment/Plan (1) Transaminitis: (2) Fever of unknown origin: (3) Hyponatremia: (4) Alcohol abuse: (5) Closed left hip fracture: QUALIFIERS: Encounter type: initial encounter Qualified Code(s): S72.002A - Fracture of unspecified part of neck of left femur, initial encounter for closed fracture (6) Hypoxia: PLAN: Plan Closed left hip fracture status post mechanical fall secondary to intoxication -Plan was for OR today however patient was febrile in preop area so surgery on hold until tomorrow -Bedrest until postoperative -As needed pain medication as ordered -Will hold on Tylenol use given transaminase elevation today -PT/OT consultation postoperatively -N.p.o. after midnight for potential surgery tomorrow Fever of unknown origin -Chest x-ray and CAT scan are unremarkable -COVID/flu/RSV/respiratory viral panel unremarkable -UA is not consistent with infection -ESR is less than 1 -CRP and procalcitonin are pending -If CRP and procalcitonin are elevated will obtain blood cultures and start empiric antibiotics Hypoxia -Etiology is unclear -No infiltrate noted on chest x-ray -Will start DuoNebs -As needed albuterol next-continue incentive spirometer -Add Acapella -Encourage out of bed and mobility postoperatively Hyponatremia -Suspect related to his alcohol use -Urine osmolality and serum osmolality performed however urine sodium not performed will order for better assessment -Stable since admission so we will repeat in a.m. Transaminitis -Liver appeared normal on CAT scan from yesterday -Acute jump in the last 24 hours -Suspect potentially med related versus infection related -Will trend and repeat in a.m. Alcohol abuse -Patient reporting only drinking 2-4 beers daily -Continue thiamine and folate -CIWA for withdrawal assessment -If starts to trend up may need to consider phenobarb or alternative if liver enzymes continue to be elevated GERD -Continue home Protonix Essential hypertension -Will hold amlodipine until postoperative -Monitor blood pressure Depression/anxiety -Continue home sertraline Impaired memory/dementia -Hold home donepezil DVT prophylaxis -SCDs for now we will start chemoprophylaxis postoperatively CODE STATUS -Currently full code unverified was unable to verify today as patient had been gone most of the day down in the OR we will reevaluate tomorrow
[2024-06-26 18:01] LABS: Bedside Glucose 156 mg/dL (74-106)
[2024-06-26 18:37] LABS: CRP < 3.00 mg/L (0.0-3.0)
[2024-06-26] MEDS: Ipratropium/Albuterol Sulfate 3 ML AMPUL.NEB INHALATION (19:56)
[2024-06-26 21:06] LABS: Urine Sodium 64 mmol/L (Not Establ.)
[2024-06-26 21:25] LABS: Procalcitonin < 0.02 ng/mL (<=0.10)
[2024-06-27] VITALS (22 sets, daily range): BP systolic 117–150; BP diastolic 55–84; PULSE 76–101; RESP 14–18; TEMP 36.8–37.6; O2SAT 91–100; BMI 24.7; BMI 24.9
[2024-06-27] MEDS: Morphine 2 MG/ML Syringe IV ×2 (03:09→08:29)
[2024-06-27] MEDS: Phenobarbital 32.4 MG Tablet PO ×3 (03:09→23:33)
[2024-06-27] MEDS: 0.9% Saline Lock 10 ML Syringe IV ×2 (03:09→08:30)
[2024-06-27] MEDS: Ipratropium/Albuterol Sulfate 3 ML AMPUL.NEB INHALATION ×2 (06:33→19:14)
[2024-06-27] MEDS: 0.9% Normal Saline (1000mL) 1,000 ML 75 ML IV ×2 (06:48→17:05)
[2024-06-27 06:53] LABS: Absolute Lymphocyte Count 0.84 X10^3/uL (0.83-4.51); Absolute Neutrophil Count 5.3 X10^3/uL (2.0-7.7); Basophil# 0.04 X10^3/uL; Basophil% 0.5 % (0-1); Eosinophil# 0.16 X10^3/uL; Eosinophils% 2.2 % (0-5); Hematocrit 33.5 % (40-54); Hemoglobin 12.1 g/dL (13.0-16.5); Lymphocyte # 0.84 X10^3/ul (0.83-4.51); Lymphocyte % 11.5 % (19-41); Mean Corp Hgb Conc 36.1 g/dL (32-36); Mean Corpuscular Volume 96.8 fL (80-94); Mean Platelet Vol. 9.8 fl (6.2-12.0); Monocyte# 0.91 X10^3/uL; Monocyte% 12.5 % (0-10); NRBC Flagged by Analyzer 0 % (0-5); Neutrophil # 5.31 X10^3/uL (2.7-7.7); Neutrophil % 72.9 % (47-70); Platelet Count 229 K/mm3 (150-450); RBC Distribution Width CV 12.2 % (11.6-14.6); RBC Distribution Width SD 42.6 fl (35.1-43.9); Red Blood Count 3.46 M/mm3 (4.6-6.2); White Blood Count 7.3 K/mm3 (4.4-11.0)
--- NOTE | 2024-06-27 07:26 | VDLE_ITS ---
Reason For Study Reason For Study: BLE Swelling RIGHT LEFT GSV is normal. GSV is normal. CFV is compressible, spontaneous, phasic, competent CFV is compressible, spontaneous, phasic, competent, and demonstrates normal augmentation. and demonstrates normal augmentation. FV is compressible, spontaneous, phasic, competent FV is compressible, spontaneous, phasic, competent and and demonstrates normal augmentation. demonstrates normal augmentation. POP V is compressible, spontaneous, phasic, competent POP V is compressible, spontaneous, and phasic. and demonstrates normal augmentation. T/P Trunk is compressible. T/P Trunk is compressible. PTV is compressible. PTV is compressible. LT PerV is compressible. RT PerV is compressible. Acute deep vein thrombosis is noted in the Soleus Procedure Vein. It is dilated and NONCOMPRESSIBLE. This is a venous duplex using B-mode, color flow and spectral Doppler. Exam performed portable in patient room. The exam was diagnostic. A preliminary report was called and/or faxed to [facility]. VL/Venous Duplex US - Umesh Extrem Interpretation Summary Acute deep vein thrombosis is noted in the left soleus vein. The remainder of t he left lower extremity deep venous system is patent and compressible. Deep veins of the right lower extremity are patent and compressible segmentally. There is no evidence of right lower extremity deep vein thrombosis. Valvular co mpetence appears intact within the proximal deep venous systems bilaterally. The great saphenous veins appear bila terally patent and compressible segmentally. Ordering Physician: Deepika Damian Referring Physician: Karla Barton Performed By: Damion Anderson, RVT
--- NOTE | 2024-06-27 07:29 | PN.HOSP_ITS ---
Reason for Visit Reason for Visit: Left hip pain status post mechanical fall Subjective Subjective Patient has no complaints at this time other than his hip pain. Plan is for surgery later today. We did find that he had a lower extremity DVT. This was discussed with the patient and plan is for anticoagulation postoperatively despite the fact that it is a distal DVT given the fact that he is high risk for ongoing DVT issues with the hip surgery. Case was discussed with Dr. Thorpe. Objective Data Objective Data Vital Signs: Vital Signs Temp Pulse Resp BP Pulse Ox O2 Del Method O2 Flow Rate 99.1 F 92 18 143/72 H 95 Nasal Cannula 2 06/27/24 06:51 06/27/24 06:51 06/27/24 06:51 06/27/24 06:51 06/27/24 06:51 06/27/24 06:51 06/27/24 06:51 Oxygen Flow Rate (L/min) 2 Oxygen Delivery Method Nasal Cannula Weight: 65.7 kg Body Mass Index (BMI) 24.7 Intake & Output: Intake and Output for Last 24 Hours 06/25/24 06/26/24 06/27/24 23:59 23:59 23:59 Intake Total 0 / 0 2442.17 / 2442.17 Output Total 400 / 900 1550 / 1550 Balance 0 / 0 2042.17 / 1542.17 -1550 / -1550 Lab / Micro Data 06/27/24 06:27 06/27/24 06:27 Labs: Laboratory Results - last 24 hr 06/26/24 02:21: ESR < 1, C-React Prot Ext Range < 3.00, Procalcitonin < 0.02 06/26/24 10:40: POC Glucose 99 06/26/24 16:07: POC Glucose 109 H 06/26/24 17:43: POC Glucose 156 H 06/26/24 18:40: Ur Random Sodium 64 06/27/24 06:27: WBC 7.3, RBC 3.46 L, Hgb 12.1 L, Hct 33.5 L, MCV 96.8 H, MCH 35.0 H, MCHC 36.1 H, RDW Std Deviation 42.6, RDW Coeff of Fay 12.2, Plt Count 229, MPV 9.8, Immature Gran % (Auto) 0.400, Neut % (Auto) 72.9 H, Lymph % (Auto) 11.5 L, Lane % (Auto) 12.5 H, Eos % (Auto) 2.2, Baso % (Auto) 0.5, Absolute Neuts (auto) 5.3, Absolute Lymphs (auto) 0.84, Nucleated RBC % 0 Micro: Microbiology 06/26/24 12:30 Mucosa - Nose Respiratory Panel (PCR) - Final 06/26/24 12:30 Mucosa - Nose SARS-CoV-2, Influenza & RSV (PCR) - Final Radiography Diagnostic Testing: Radiology Impression Chest X-Ray 06/26/24 14:50 IMPRESSION: No focal infiltrate or consolidation is seen within the lungs. No pneumothorax. Reading Location: [facility] Physical Exam Const alert, oriented x3, no apparent distress, average body habitus and well nourished; Negative for healthy appearing Constitutional Narrative: Elderly, white male, lying in bed, at bedside, currently appears comfortable, nontoxic, seems slightly frustrated General Appearance: cooperative HEENT normocephalic, head/scalp atraumatic and moist oral mucous membranes HEENT Narrative: Mild hearing loss, Mallampati 2, no thrush Resp normal respiratory effort, no retractions, no use of accessory muscles and clear to auscultation bilaterally Auscultation: Negative for rales, rhonchi or wheezes Cardio regular rate, regular rhythm, S1 normal heart sound, S2 normal heart sound, no murmurs, no rub, no gallops and no clicks GI normal to inspection, nondistended, normoactive bowel sounds, soft to palpation and non-tender Extremity Extremity Narrative: Left lower extremity is shortened and externally rotated, no sensory deficits, legs are warm with good cap refill, pedal pulses are 2+ bilaterally, radial pulses are 2+ bilaterally, no cyanosis or clubbing, no significant edema noted Neuro oriented x3 and no focal motor deficits Neuro Narrative: Unable to move left lower extremity due to pain Speech: speech normal Psych Psych Narrative: Affect is flattened patient seems disinterested Assessment & Plan Assessment/Plan (1) Transaminitis: (2) Fever of unknown origin: (3) Hyponatremia: (4) Alcohol abuse: (5) Closed left hip fracture: QUALIFIERS: Encounter type: initial encounter Qualified Code(s): S72.002A - Fracture of unspecified part of neck of left femur, initial encounter for closed fracture (6) Hypoxia: PLAN: Plan Closed left hip fracture status post mechanical fall secondary to intoxication -OR later today for pain -Bedrest until postoperative -As needed pain medication as ordered -Will hold on Tylenol use given transaminase elevation today -PT/OT consultation postoperatively -N.p.o. after midnight for potential surgery tomorrow Fever of unknown origin -Infectious workup was unremarkable -ESR and CRP were normal -Procalcitonin was within normal limits -Patient was found to have a left lower extremity DVT so I suspect fever may be related to this Left soleal DVT -Patient extremely high risk for propagation given fracture and operative intervention -Will plan on anticoagulation postoperatively. Did discuss case with Dr. Thorpe and estuardo to start full anticoagulation on the evening after surgery with 10 mg p.o. twice daily for 7 days then transition to 5 mg p.o. twice daily -Continue Protonix 40 mg daily as he is an abuser of alcohol on a regular basis Hypoxia -Will give Lasix 40 mg x 1 dose -Continue DuoNebs -As needed albuterol next-continue incentive spirometer -Continue incentive spirometry and Acapella -Encourage out of bed and mobility postoperatively Hyponatremia -Suspect related to his alcohol use -Slightly up today without any specific treatment -Check a.m. uric acid -Stable since admission so we will repeat in a.m. Hypophosphatemia -Sodium Phos bolus -Recheck in a.m. Transaminitis/hyperbilirubinemia -Liver appeared normal on CAT scan from yesterday -LFTs are trending down however bilirubin is now elevated -Etiology is unclear -Will trend and repeat in a.m. Alcohol abuse -Patient reporting only drinking 2-4 beers daily -Continue thiamine and folate -CIWA for withdrawal assessment and has been 0 thus far GERD -Continue home Protonix Essential hypertension -Will plan on restarting amlodipine tomorrow -Monitor blood pressure Depression/anxiety -Continue home sertraline Impaired memory/dementia -Hold home donepezil DVT prophylaxis -Full dose Eliquis to start postoperatively given finding of a left soleal DVT CODE STATUS -CODE STATUS is verified and patient is full code Charges/Coding Visit Charges Inpatient E&M: 90857 [facility] L3
[2024-06-27 07:42] LABS: Magnesium 1.9 mg/dL (1.5-2.2); Phosphorus 1.9 mg/dL (2.7-4.5)
[2024-06-27 07:48] LABS: ALB/GLOB Ratio 1.6 RATIO (0.9-2.4); AST(SGOT) 117 U/L (<=37); Alanine Aminotransfer ALT/SGPT 93 U/L (<=46); Albumin, Serum 3.7 g/dL (3.4-4.8); Alkaline Phosphatase 182 U/L (40-129); Anion Gap 10 (5-15); BUN 6 mg/dL (4-19); BUN/Creat Ratio 11.6 RATIO (10-20); Calcium,Total 8.3 mg/dL (7.6-11.0); Carbon Dioxide 24.1 mmol/L (21.0-32.0); Chloride 94 mmol/L (98-108); Creatinine, Serum 0.51 mg/dL (0.70-1.20); EST Glomerular Filtration Rate 101 (>60); Estimated Creatinine Clearance 58.58 ml/min (50-250); Globulin 2.3 g/dL (2.2-4.2); Glucose 118 mg/dL (70-99); Potassium 3.6 mmol/L (3.3-5.1); Protein, Total 6.1 g/dL (5.9-8.4); Sodium Level 128 mmol/L (133-145)
--- NOTE | 2024-06-27 10:12 | CASEMGMT ---
Discharge Planning A list of?SNF providers including quality and resource use data and consistent with the patient's preferred geographic region, medical needs, and insurance network was created in [employer] Guide.? This list was provided to the SW. Harriett Villagomez Discharge Planning Asst.
--- NOTE | 2024-06-27 11:15 | NURSING ---
Pt to OR via bed
--- NOTE | 2024-06-27 11:27 | PRE.ANES_ITS ---
ASA Classification* ASA Classification ASA Classification: 3 Assessment & Plan Anesthesia* Anesthesia Assessment Anesthesia Assessment: Discussed sedation and/or anesthesia options, risks, benefits, and alternatives with patient/parents/legal guardian/POA. Questions invited. The patient/parents/legal guardian/POA seems to understand and agrees to proceed with anesthesia plan. Reviewed the physical assessment, medical history, allergy history and patient home medications list prior to surgery/procedure/anesthetic and documented any changes. Performed airway and anesthesia risk assessments. Anesthesia Type Anesthesia Type: General Anesthesia Focused Assessment* Temperature: 99.4 F Pulse Rate: 98 Blood Pressure: 133/77 Respiratory Rate: 18 Pulse Ox: 97 Oxygen Flow Rate (L/min): 2 Airway Assessment Mouth opens: >3 cm Mallampati Score: II Focused Labs Anesthesia Preop lab: CBC WBC 7.3 K/mm3 (4.4-11.0) 06/27/24 06:06/27/24 RBC 3.46 M/mm3 (4.6-6.2) L 06/27/24 06:06/27/24 Hgb 12.1 g/dL (13.0-16.5) L 06/27/24 06: 5 Hct 33.5 % (40-54) L 06/27/24 06:06/27/24 Plt Count 229 K/mm3 (150-450) 06/27/24 06:06/27/24 CHEMISTRY Potassium 3.6 mmol/L (3.3-5.1) 06/27/24 06:06/27/24 Sodium 128 mmol/L (133-145) L 06/27/24 06:06/27/24 Magnesium 1.9 mg/dL (1.5-2.2) 06/27/24 06:06/27/24 Phosphorus 1.9 mg/dL (2.7-4.5) L 06/27/24 06:06/27/24 BUN 6 mg/dL (4-19) 06/27/24 06:06/27/24 Creatinine 0.51 mg/dL (0.70-1.20) L 06/27/24 06: Glucose 118 mg/dL (70-99) H 06/27/24 06:25 POC Glucose 156 mg/dL (74-106) H 06/26/24 17:43 06/26/24 TSH 1.910 uIU/mL (0.300-4.200) 06/26/24 02:21 06/01 10/24 COAG PT 12.9 SECONDS (11.7-14.9) 06/26/24 02:21 Pre-Assessment Diagnosis/Proposed Procedure Planned Operative Procedure(s): Left hip hemiarthroplasty. Anesthesia History Anesthesia History - carbonation equipment tender: Anesthesia History - carbonation equipment tender Hx Hospitalization Any Problems With Anesthesia No 06/26/24 03:54 Cholinesterase deficiency No 06/26/24 03:54 You/Your Family Experience No 06/26/24 03:54 fever (hyperthermia) with Relationship Recent Exposure to Contagious No 06/26/24 03:54 Disease Does patient have nerve No 06/26/24 03:54 stimulator Patient instructed to have No 06/26/24 03:54 device shut off --Does patient have Pacemaker No 06/26/24 10:45 or ICD? When Was Last Pacemaker Check QUESTION #4 FULL TEXT: You/Your Family Experience fever (hyperthermia) with Anesthesia Last Oral Intake Last Oral intake: Last Oral Intake NPO since 00:00 06/26/24 10:45 Meds taken in AM with sips of No 06/26/24 10:45 water? Meds patient instructed to take am of surgery PONV PONV - carbonation equipment tender: PONV - carbonation equipment tender Female HX of Motion Sickness HX of N/V After Surgery Non-Smoker Duration of Surgery greater than 60 minutes Number of Risk Factors PONV Score Height & Weight Height & Weight: Anesthesia: Height & Weight Height 5 ft 4 in 06/26/24 12:02 Weight: 65.7 kg 06/27/24 05:48 Body Mass Index (BMI) 24.7 06/27/24 05:48 Respiratory Assessment Respiratory Assessment - carbonation equipment tender: Respiratory Tract Infection Hx - carbonation equipment tender Hx Respiratory Tract Infection Yes: Patient states 06/26/24 12:36 allergies are acting up. STOP Sleep Apnea STOP Sleep Apnea - carbonation equipment tender: STOP Sleep Apnea - carbonation equipment tender Hx Hypertension Yes 06/26/24 02:45 Hx Sleep Apnea No 06/26/24 02:45 CPAP BIPAP Do you snore loudly (louder Yes 06/26/24 02:45 than talking or can be heard Do you often feel tired/ Yes 06/26/24 02:45 fatigued/ sleepy during daytime? Has anyone observed you stop No 06/26/24 02:45 breathing during sleep? STOP Results Positive 06/26/24 02:45 QUESTION #5 FULL TEXT : Do you snore loudly (louder than talking or can be heard through closed doors)? 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 Specify any problems Hx of Preganancy in last 3 N/A 06/26/24 02:45 Months Nurse Filling Out Transfusion EVIZZO 06/26/24 02:45 & Questions: Date: 06/26/24 06/26/24 02:45 Time: 03:14 06/26/24 02:45 Patient unable to answer at this time (ie. confused, unrespo /Reproduction History /Reproductive History - carbonation equipment tender: /Reproductive Hx- carbonation equipment tender Hx Now No 06/26/24 03:54 Gestational Age (in weeks): EDC: Hx Hx Para Hx Section SAB No 06/26/24 03:54 Active Medications Active Medications: Current Medications Generic Name Dose Route Start Last Admin Trade Name Freq PRN Reason Stop Dose Admin Albuterol Sulfate 2.5 mg 06/26/24 17:31 Albuterol 2.5 Mg/3 Ml Vial.Neb. INHALATION Q2H PRN PRN SOB &/OR WHEEZING Albuterol/Ipratropium 3 ml 06/26/24 17:45 06/27/24 06:33 Ipratropium/Albuterol Sulfate 3 Ml Ampul.Neb INHALATION 3 ml Q6HWA.RT MONICA Administration Amlodipine Besylate 5 mg 06/26/24 10:00 06/26/24 16:15 Amlodipine 5 Mg Tablet PO 5 mg DAILY MONICA Administration Protocol Aspirin 81 mg 06/26/24 08:00 06/26/24 16:14 Aspirin E.C. 81 Mg Tablet PO 81 mg BREAKFAST MONICA Administration Dicyclomine HCl 20 mg 06/26/24 03:00 Dicyclomine 10 Mg Capsule PO Q6H PRN PRN abdominal discomfort Donepezil HCl 10 mg 06/26/24 10:00 06/26/24 16:15 Donepezil Hcl 10 Mg Tablet PO 10 mg DAILY MONICA Administration Folic Acid 1 mg 06/26/24 08:00 06/26/24 16:15 Folic Acid 1 Mg Tablet PO 1 mg DAILY@0800 MONICA Administration Gabapentin 300 mg 06/26/24 03:00 Gabapentin 300 Mg Capsule PO Q8H PRN PRN moderate to severe anxiety Glucagon 1 mg 06/26/24 03:00 Glucagon 1 Mg/Ml Syringe IM X1 PRN HYPOGLYCEMIA Protocol Hydralazine HCl 5 mg 06/26/24 03:00 Hydralazine 20 Mg/Ml Vial IV Q8H PRN PRN SBP GREATER THAN 160 Protocol Dextrose 250 mls @ 0 mls/hr 06/26/24 03:00 Dextrose 10%-Water IV .Q0M PRN HYPOGLYCEMIA Protocol As Directed Cefazolin Sodium 2 gm/ N/A 20 mls @ 400 mls/hr 06/27/24 12:30 IV 06/27/24 12:32 PREOP ONE Sodium Chloride 1,000 mls @ 75 mls/hr 06/27/24 06:10 06/27/24 06:48 IV 75 mls/hr .[id number] MONICA Administration Ibuprofen 200 mg 06/26/24 03:00 Ibuprofen 200 Mg Tablet PO Q6H PRN PRN Pain 1-5/10 or Fever Loperamide HCl 2 mg 06/26/24 03:00 Loperamide 2 Mg Capsule PO Q4H PRN PRN LS Morphine Sulfate 2 mg 06/26/24 03:00 06/27/24 08:29 Morphine 2 Mg/Ml Syringe IV 2 mg Q4H PRN PRN Administration Pain Score 6-10 Ondansetron HCl 8 mg 06/26/24 03:00 Ondansetron 8 Mg Tablet PO Q8H PRN PRN NAUSEA Pantoprazole Sodium 40 mg 06/26/24 10:00 06/26/24 16:14 Pantoprazole Sodium 40 Mg Tablet PO 40 mg DAILY MONICA Administration Phenobarbital 64.8 mg 06/26/24 03:00 06/27/24 06:55 Phenobarbital 32.4 Mg Tablet PO 06/30/24 10:59 97.2 mg Q4H MONICA Administration Taper Promethazine HCl 12.5 mg 06/26/24 03:00 Promethazine 25 Mg/Ml Syringe IM Q6H PRN PRN NAUSEA/VOMITING Sertraline HCl 25 mg 06/26/24 10:00 06/26/24 16:15 Sertraline 50 Mg Tablet PO 25 mg DAILY MONICA Administration Sodium Chloride 10 - 40 ml 06/26/24 03:00 06/27/24 08:30 0.9% Saline Lock 10 Ml Syringe IV 10 ml UD PRN Administration SALINE FLUSH Thiamine HCl 100 mg 06/26/24 08:00 06/26/24 16:15 Thiamine Hydrochloride 100 Mg Tablet PO 100 mg DAILYCM MONICA Administration [facility] Medical History Alcohol abuse GERD (gastroesophageal reflux disease) Former tobacco use Anxiety and depression Dementia HTN (hypertension) Home Medications ?Medication ?Instructions ?Recorded ?Last Taken ?Type amlodipine 5 mg tablet 5 mg PO DAILY blood pressure 05/11/17 Unknown History donepezil 10 mg tablet 10 mg PO DAILY memory Unknown History pantoprazole 40 mg tablet,delayed 40 mg PO DAILY reflu x 05/11/17 Unknown History release sertraline 25 mg tablet 25 mg PO DAILY 11/30/18 Unkn own History aspirin 81 mg tablet,delayed 81 mg PO DAILY 04/28/22 U nknown History release miglitol 50 mg tablet 50 mg PO DAILY 04/28/22 Unkn own History Allergy/AdvReac Type Severity Reaction Status Date / Time levofloxacin (From Levaquin) Allergy Vomiting Verified 06/25/24 21:45 Surgical History History of ankle surgery S/P cholecystectomy History of repair of hiatal hernia Social History household members: spouse Smoking Status: Former smoker how long ago did patient quit smoking: Quit 29 years prior, smoked 1 ppd until quit. alcohol intake: current details: Previously reported 12 pack beer weekly, prior suspicions EtOH abuse. substance use type: does not use Review of Systems (Anesthesia) ROS Narrative System reviewed and no additional complaints, except as documented.
--- NOTE | 2024-06-27 11:30 | CASEMGMT ---
Social Work SW met with pt and pt to discuss discharge plan. Pt preference is to return home if possible but pt and aware pt may not be able to return home at time of dc and are agreeable to SNF if needed. Pt to be assessed after surgery and therapy for dc planning. A list of SNF providers including quality and resource use data and consistent with the patient?s preferred geographic region, medical needs, and insurance network were provided from the [facility] Guide. Pt preferred provider is [facility]. SISSY informed pt that [facility] is not in network with insurance. SISSY spoke with Maryam at [facility] who confirms there are also no out of network benefits with pt's insurance at this facility. SW to follow up after therapy evaluations. JESS Kaiser
--- NOTE | 2024-06-27 12:30 | BONBX_PTH ---
PATIENT: RACHELL FLORES LOC: [facility] U#:[id number] AGE/SX: 84/M [place] [facility] [place] RE06/26/[address]: Dr. Ezra Tracey MD : 1940 BED: 1 DIS: 07/01/2024 SPEC #: [id number] RECD: 06/27/24 17:04 STATUS: ALOK REQ #: [id number] SARAH: 06/27/24 12:[address]: Ryland Thorpe DEPT: SURGICAL PATHOLOGY RECD BY: Blanka Rivas ENTERED: 06/30/24 08:06 SP TYPE: Bone OTHR DR: MD Dr. Ezra Reich, MD Dr. Deepika Decker Dr., DO Dr. Ryland Thorpe, DO Dr. Tung Hurt, Tissues: Hip, NOS Procedures: Decalcification bone/plaque Surgery Specimen Level V Comments: @ Ordering doctor for DEC edited from to @ by MASSIMO at 06/30/24 1038 @ Ordering doctor for SUV edited from to @ by MASISMO at 06/30/24 1038 @ Submitting doctor edited from to DR.NSPITT Kennedy by MASSIMO at 06/30/24 1038 HEADER OPERATION: Hemiarthroplasty, hip PRE-OP DIAGNOSIS: Closed hip fracture left TISSUE SUBMITTED: A- Left hip bone MICROSCOPIC DIAGNOSIS A. Left Femoral Head, closed fracture, hemiarthroplasty: * Articular bone with thinned trabeculae and fatty marrow spaces with focal acute hemorrhage. MICROSCOPIC DESCRIPTION Slides are reviewed. GROSS DESCRIPTION A. Received in formalin in a container labeled with the patient's name, date of , and left hip bone is a 4.8 x 4.8 x 3.6 cm firm and abraham femoral head. The resection margin is shaggy and hemorrhagic. The cortical surface is smooth and unremarkable. It is quadrisected to reveal firm, abraham, focally hemorrhagic surfaces. No mass lesion is grossly recognized. Received in the same container are multiple firm and hemorrhagic bone fragments measuring 4.0 x 3.7 x 1.8 cm in aggregate. Sectioning reveals unremarkable cut surfaces. Instructional Technology Instructor sections submitted in A1 following decalcification. [facility] 06-30-2024 CPT:53456,26476
--- NOTE | 2024-06-27 12:42 | PN.ORTHO_ITS ---
Subjective Subjective Patient seen and examined. Denies any complaints. Denies fevers, chills, nausea vomiting, chest pain or shortness of breath. Objective Data Objective Data Vital Signs: Vital Signs Temp Pulse Resp BP Pulse Ox O2 Del Method O2 Flow Rate 99.4 F H 101 H 18 133/77 H 91 Room Air 2 06/27/24 11:27 06/27/24 11:46 06/27/24 11:46 06/27/24 11:27 06/27/24 11:46 06/27/24 11:46 06/27/24 11:27 Oxygen Flow Rate (L/min) 2 Oxygen Delivery Method Room Air Weight: 144 lb 13.499 oz Body Mass Index (BMI) 24.7 Intake & Output: Intake and Output for Last 24 Hours 06/25/24 06/26/24 06/27/24 23:59 23:59 23:59 Intake Total 0 / 0 2442.17 / 2442.17 Output Total 400 / 900 1550 / 1550 Balance 0 / 0 2042.17 / 1542.17 -1550 / -1550 Lab / Micro Data 06/27/24 06:27 06/27/24 06:27 Labs: Laboratory Results - last 24 hr 06/26/24 02:21: ESR < 1, C-React Prot Ext Range < 3.00, Procalcitonin < 0.02 06/26/24 16:07: POC Glucose 109 H 06/26/24 17:43: POC Glucose 156 H 06/26/24 18:40: Ur Random Sodium 64 06/27/24 06:27: WBC 7.3, RBC 3.46 L, Hgb 12.1 L, Hct 33.5 L, MCV 96.8 H, MCH 35.0 H, MCHC 36.1 H, RDW Std Deviation 42.6, RDW Coeff of Fay 12.2, Plt Count 229, MPV 9.8, Immature Gran % (Auto) 0.400, Neut % (Auto) 72.9 H, Lymph % (Auto) 11.5 L, Fountain % (Auto) 12.5 H, Eos % (Auto) 2.2, Baso % (Auto) 0.5, Absolute Neuts (auto) 5.3, Absolute Lymphs (auto) 0.84, Nucleated RBC % 0, Sodium 128 L, Potassium 3.6, Chloride 94 L, Carbon Dioxide 24.1, Anion Gap 10, BUN 6, C reatinine 0.51 L, Estim Creat Clear Calc 58.58, Est GFR (MDRD) Non-Af 101, BUN/Creatinine Ratio 11.6, Glucose 118 H, Calcium 8.3, Phosphorus 1.9 L, Magnesium 1.9, Total Bilirubin 2.10 H, AST 117 H, ALT 93 H, Alkaline Phosphatase 182 H, Total Protein 6.1, Albumin 3.7, Globulin 2.3, Albumin/Globulin Ratio 1.6 Micro: Microbiology 06/26/24 12:30 Mucosa - Nose Respiratory Panel (PCR) - Final 06/26/24 12:30 Mucosa - Nose SARS-CoV-2, Influenza & RSV (PCR) - Final Radiography Diagnostic Testing: Radiology Impression Chest X-Ray 06/26/24 14:50 IMPRESSION: No focal infiltrate or consolidation is seen within the lungs. No pneumothorax. Reading Location: [facility] Physical Exam Narrative General -A&Ox3, NAD, appears stated age. Vital signs stable, afebrile. Respiratory -normal work of breathing, no intercostal retractions. CV -pulses regular, brisk capillary refill ?4 limbs. Abdomen-soft, nontender, nondistended. No guarding, rigidity, rebound tenderness. Musculoskeletal/neurologic -full range of motion nontender throughout bilateral upper extremities, right lower extremity with full sensation and strength in all dermatomes and myotomes. No midline cervical tenderness. Left lower extremity- no obvious deformity. Pain with logroll of the left lower extremity. Nontender throughout the left knee femoral shaft, tibial shaft and left foot/ankle. Brisk capillary refill. Sensation intact light touch L3-S1 dermatomes. DF, PF, EHL intact. DP, PT 2+. Pelvis is stable, nontender. Skin is intact without lacerations, abrasions. No ecchymosis noted. Calves are soft nontender bilaterally. Assessment & Plan Assessment/Plan (1) Closed left hip fracture: QUALIFIERS: Encounter type: initial encounter Qualified Code(s): S72.002A - Fracture of unspecified part of neck of left femur, initial encounter for closed fracture PLAN: Patient seen and examined. Workup for fever of unknown origin has yielded only a left shift and asymptomatic lower extremity DVT below the calf. Discussed current status of patient with Dr. Damian, his attending hospitalist. Given the lack of elevated inflammatory markers ESR, CRP, I recommended we proceed with left hip hemiarthroplasty. Plan to use Eliquis postoperatively for treatment of DVT. Depending on the amount of bleeding intraoperatively likely this evening versus tomorrow morning. Informed consent was again confirmed with the patient. Further recommendation pending surgery.
[2024-06-27] MEDS: Cefazolin 2 GM in Syringe IV (12:58)
[2024-06-27] MEDS: Bupiv/Epi 0.25% 30 ML Vial (13:50)
--- NOTE | 2024-06-27 14:34 | OP.PCM_ITS ---
Operative Report (Standard) Operative Information Date of Procedure: 06/27/24 Pre-Operative Diagnosis: Displaced left femoral neck fracture Post-Operative Diagnosis: Displaced left femoral neck fracture Surgery/Procedure Performed: Left hip hemiarthroplasty tailor men's ready to wear: Yes Freight Car Repairer: Julieth No Tasks completed by bookkeeper assistant: Opening & closing, Implanting device and Retracting Type of Anesthesia: General RN Documented Start/Stop Times: Operation Date: 06/27/24 12:30 Case Time Into Pre-Op 06/27/24 11:42 Out of Pre-Op 06/27/24 12:57 Anesthesia Start 06/27/24 12:58 Into Room 06/27/24 12:58 Procedure Start 06/27/24 13:24 Procedure End 06/27/24 14:20 Anesthesia End 06/27/24 14:28 Out of Room 06/27/24 14:28 Procedure Start Time: 13:24 Procedure Stop Time: 14:20 Select all DRAINS/GRAFTS/IMPLANTS that apply: Implanted device Implanted device details: Galilea insignia hip stem high offset size #6, Unitrax neck adjustment sleeve +4 mm, Unitrax endoprosthesis head component 51 mm Estimated Blood Loss: 200 cc Specimen collected: Yes Description of specimen(s) removed: Left femoral head Description of surgery: Prior to the procedure, patient was brought to the preoperative holding area where patient was identified by name, medical record number and date of . I confirmed the side, site, operation to be performed with the patient. Informed consent was confirmed, All questions were answered to patient satisfaction. The operative extremity was marked. He was also seen by anesthesia staff and anesthesia consent obtained.At time of the operative procedure, pt was brought to the operative suite. General anesthesia was induced on the hospital bed and endotracheal tube placed. After adequate anesthesia, patient was transferred to a standard operating table. She was then positioned in the lateral decubitus position with the left side up and held in position by [employer] hip positioner system. All bony prominences were well-padded. A axillary roll was placed under the patient's right axilla. Peroneal nerve was free with a blanket on the nonoperative extremity. Leg lengths were reproduced from patient's position when she was supine. The left lower extremity was then prepped and draped in normal, sterile orthopedic fashion. We performed a timeout with all parties in attendance in agreement with the side, site, and operation to be performed. No concerns were voiced and would like to proceed. 2 g Ancef was administered IV prior to incision by anesthesia staff. I first marked an incision along the lateral aspect of the hip centered over the greater trochanteric tip. In standard posterior approach, a curvilinear incision was made above the trochanter. An approximately 15 cm incision was made. Skin was sharply incised with a 10 blade scalpel carried deep through subcutaneous layers to the level of the IT band. Gelpi retractors were then placed. A Barrera was used to expose the IT band. Bovie cautery was then used for hemostasis and then to open the IT band. This was opened in line with the incision. A Charnley retractor was then placed. Sciatic nerve is free. The tr ochanteric bursa was then debrided. This identified the short external rotators after internal rotation of the hip. The fracture site was easily identified at this point. Short external rotators were taken down and tagged for later repair. Hip capsule was also tagged for repair with a stay suture. We then freshened the neck cut with a sagittal saw. Anterior and posterior acetabular retractors were placed to gain access to the femoral head. A corkscrew was used to remove the head. Any remaining debris was debrided from the acetabulum. We then placed the femoral head on the back table for measurement. We did use trial heads and selected a final size 51 with good suction fit. Box chisel was then utilized to gain access to the femoral canal. Canal finder was placed. Sequential broaches were used and press-fit manner. A final size 6 achieved excellent vertical and rotational stability. We then trialed with a standard and subsequently high offset stem. I offset did achieve excellent stability and reproduction of abductor tension. Leg lengths appeared appropriate with a size +4 mm neck length. Trials were then removed. We copiously irrigated the wound with normal saline solution and irrisept solution. A size 6 stem was then impacted with excellent fixation. Final head was then impacted over the Mireles taper neck. Final reduction was performed. A posterior capsular repair was performed with #2 Ethibond suture. IT band was closed watertight with #1 Vicryl suture. Deeper fascial layers were closed with 0 Vicryl suture in interrupted fashion. Subcutaneous layers were reapproximated with 2-0 Vicryl suture and skin reapproximated with skin neeraj. A silver dressing was applied. Patient tolerated procedure well without complication. He was positioned back in the supine position on her hospital bed and subsequently extubated safely. He was transferred to PACU in stable condition. Bath blankets were placed between the patient's leg to be worn while she is in bed. Post Operative Plan: Weightbearing: Weightbearing as tolerated left lower extremity, posterior hip precautions. Antibiotics: Ancef 1 g every 8 hours x 3 doses DVT treatment: Discussed with primary service. Plan for standard DVT treatment protocol with 10 mg Eliquis twice daily starting tonight transitioning to 5 mg after a week of treatment. Early mobilization encouraged. Willams: None Dressing: Maintain silver dressing x 5 days X-Rays: PACU x-rays were reviewed demonstrated well-positioned left hip hemiarthroplasty implant. Follow-up 2-week x-rays in the office. Follow-up: 2 weeks in my office for staple removal Surgical Findings: Comminuted, displaced left femoral neck fracture. Stable left hip following final implantation Complications Complications: No Admit VTE Documentation VTE Present on Admission: No (DVT is noted prior to surgery, questionably present upon admission.) VTE Pharm Prophylaxis ordered?: Yes
--- NOTE | 2024-06-27 14:36 | PCM.POST.ANE ---
Anesthesia: Postop Eval I Current Vital Signs Temperature: 98.9 F Pulse Rate: 77 Blood Pressure: 117/62 Respiratory Rate: 14 Pulse Ox: 100 Oxygen Delivery Method: Simple Mask Oxygen Flow Rate (L/min): 6 Assessment Airway patent: Yes Spontaneous unlabored respirations: Yes Mental status: Awake and Calm nausea: No Vomiting: No Anesthesia Complication: No Fluid Hydration Crystalloid volume administer (ml): 800 Total IV fluid infused: 800 Progress Note Anesthesia document: Postop Eval 1 completed: Yes
--- NOTE | 2024-06-27 14:45 | RAD_ITS ---
PROCEDURE: HIP MIN 2 VIEWS (PORTABLE) 06/27/2024 REASON FOR EXAM: POST OP TECHNIQUE: Two views of the pelvis COMPARISON: 06/25/2024 FINDINGS: Interval left hip total arthroplasty in good alignment. There is gas in the soft tissues and surgical neearj at the skin surface of the hip, consistent with the recent postoperative status. RAD/Hip Min 2 Views (Portable) IMPRESSION: Interval left total hip arthroplasty in good alignment. Reading Location: [facility]
--- NOTE | 2024-06-27 16:24 | POSTOPAN2_ITS ---
Anesthesia Postop Eval I Sum Postop Eval Completion status Anesthesia document: Postop Eval 1 completed: Yes Anesthesia Postop Eval I Summary Anesthesia Postop Eval I Summary: Anesthesia Postop Eval I: Assessment Summary Airway patent Yes 06/27/24 14:37 [email or web address] Spontaneous unlabored Yes 06/27/24 14:37 [email or web address] respirations Mental status Awake,Calm 06/27/24 14:37 [email or web address] nausea No 06/27/24 14:37 [email or web address] Vomiting No 06/27/24 14:37 [email or web address] Anesthesia Postop Eval I: Fluid Summary Crystalloid volume administer 800 06/27/24 14:37 [email or web address] (ml) Colloids volume administered ( ml) Blood Product volume administered (ml) Total IV fluid infused 800 06/27/24 14:37 [email or web address] Anesthesia Postop Eval I: Summary Notes Anesthesia Complication No 06/27/24 14:37 [email or web address] Anesthesia Complication Comment: Post-operative progress note Anesthesia: Postop Eval II Evaluation Mental status: Awake Pain Level: 0 nausea: No Vomiting: No
--- NOTE | 2024-06-27 16:24 | PCM.POSTANE2 ---
Anesthesia Postop Eval I Sum Postop Eval Completion status Anesthesia document: Postop Eval 1 completed: Yes Anesthesia Postop Eval I Summary Anesthesia Postop Eval I Summary: Anesthesia Postop Eval I: Assessment Summary Airway patent Yes 06/27/24 14:37 [email or web address] Spontaneous unlabored Yes 06/27/24 14:37 [email or web address] respirations Mental status Awake,Calm 06/27/24 14:37 [email or web address] nausea No 06/27/24 14:37 [email or web address] Vomiting No 06/27/24 14:37 [email or web address] Anesthesia Postop Eval I: Fluid Summary Crystalloid volume administer 800 06/27/24 14:37 [email or web address] (ml) Colloids volume administered ( ml) Blood Product volume administered (ml) Total IV fluid infused 800 06/27/24 14:37 [email or web address] Anesthesia Postop Eval I: Summary Notes Anesthesia Complication No 06/27/24 14:37 [email or web address] Anesthesia Complication Comment: Post-operative progress note Anesthesia: Postop Eval II Evaluation Mental status: Awake Pain Level: 0 nausea: No Vomiting: No
[2024-06-27] MEDS: Furosemide 40 MG/4 ML Vial IV (17:14)
[2024-06-27] MEDS: Sodium Phosphate/Na Biphos 40 MMOL in 0.9% Normal Saline (500mL Bag) 500 ML 62.5 MMOL IV (17:32)
[2024-06-27] MEDS: Cefazolin 1 GM/50 ML BAG IV (20:57)
[2024-06-27] MEDS: APIXABAN 5 MG TABLET 10 MG PO (23:29)
[2024-06-27] MEDS: Calcium Carbonate 500 MG Tablet PO (23:33)
[2024-06-27] MEDS: Sertraline 50 MG Tablet 25 MG PO (23:34)
[2024-06-27] MEDS: Folic Acid 1 MG Tablet PO (23:35)
[2024-06-27] MEDS: Aspirin E.C. 81 MG Tablet PO (23:35)
[2024-06-27] MEDS: Thiamine Hydrochloride 100 MG Tablet PO (23:36)
[2024-06-27] MEDS: Pantoprazole Sodium 40 MG Tablet PO (23:37)
[2024-06-28] VITALS (13 sets, daily range): BP systolic 120–146; BP diastolic 52–78; PULSE 60–96; RESP 16–20; TEMP 36.6–37.4; O2SAT 93–99; BMI 24.9; BMI 25.2
[2024-06-28] MEDS: oxyCODONE 5 MG Tablet PO (03:09)
[2024-06-28] MEDS: Phenobarbital 32.4 MG Tablet PO ×5 (03:10→22:15)
[2024-06-28] MEDS: Cefazolin 1 GM/50 ML BAG IV ×2 (05:02→13:55)
[2024-06-28 07:15] LABS: Hematocrit 28.8 % (40-54); Hemoglobin 10.4 g/dL (13.0-16.5); Mean Corp Hgb Conc 36.1 g/dL (32-36); Mean Corpuscular Hgb 34.8 pg (27.0-32.0); Mean Corpuscular Volume 96.3 fL (80-94); Mean Platelet Vol. 10.2 fl (6.2-12.0); Platelet Count 191 K/mm3 (150-450); RBC Distribution Width SD 41.4 fl (35.1-43.9); Red Blood Count 2.99 M/mm3 (4.6-6.2); White Blood Count 7.2 K/mm3 (4.4-11.0)
[2024-06-28] MEDS: 0.9% Normal Saline (1000mL) 1,000 ML 75 ML IV ×2 (07:48→22:16)
[2024-06-28 08:19] LABS: Anion Gap 13 (5-15); BUN 9 mg/dL (4-19); BUN/Creat Ratio 14.8 RATIO (10-20); Calcium,Total 7.8 mg/dL (7.6-11.0); Carbon Dioxide 22.4 mmol/L (21.0-32.0); Chloride 96 mmol/L (98-108); Creatinine, Serum 0.61 mg/dL (0.70-1.20); EST Glomerular Filtration Rate 95 (>60); Estimated Creatinine Clearance 58.58 ml/min (50-250); Glucose 160 mg/dL (70-99); Potassium 3.2 mmol/L (3.3-5.1); Sodium Level 131 mmol/L (133-145); Uric Acid 3.4 mg/dL (3.5-7.2)
[2024-06-28 09:34] LABS: AST(SGOT) 54 U/L (<=37); Alanine Aminotransfer ALT/SGPT 51 U/L (<=46); Albumin, Serum 3.1 g/dL (3.4-4.8); Alkaline Phosphatase 130 U/L (40-129); Bilirubin, Direct 0.41 mg/dL (0.00-0.30); Globulin 2.4 g/dL (2.2-4.2); Phosphorus 2.9 mg/dL (2.7-4.5); Protein, Total 5.5 g/dL (5.9-8.4); Total Bilirubin 0.72 mg/dL (0.00-1.30)
[2024-06-28] MEDS: Thiamine Hydrochloride 100 MG Tablet PO (10:00)
[2024-06-28] MEDS: Folic Acid 1 MG Tablet PO (10:00)
[2024-06-28] MEDS: Pantoprazole Sodium 40 MG Tablet PO (10:00)
[2024-06-28] MEDS: Sertraline 50 MG Tablet 25 MG PO (10:01)
[2024-06-28] MEDS: Calcium Carbonate 500 MG Tablet PO ×3 (10:01→16:56)
[2024-06-28] MEDS: APIXABAN 5 MG TABLET 10 MG PO ×2 (10:02→22:15)
[2024-06-28] MEDS: Acetaminophen 500 MG Tablet 1000 MG PO ×3 (10:06→22:14)
[2024-06-28] MEDS: Potassium Chloride Oral Tablet 20 MEQ 40 MEQ PO (10:07)
--- NOTE | 2024-06-28 10:36 | PCM.PN.ORT ---
Subjective Subjective Patient seen and examined. Denies any new complaints. Denies fevers, chills, nausea vomiting, chest pain shortness of breath. States he was able to stand at bedside today. Pain controlled with current pain regimen. Denies numbness or tingling. Objective Data Objective Data Vital Signs: Vital Signs Temp Pulse Resp BP Pulse Ox O2 Del Method O2 Flow Rate 99.4 F H 60 18 121/65 H 93 Room Air 2 06/28/24 09:42 06/28/24 09:45 06/28/24 09:42 06/28/24 09:42 06/28/24 09:42 06/28/24 09:45 06/28/24 08:02 Oxygen Flow Rate (L/min) 2 Oxygen Delivery Method Room Air Weight: 148 lb 2.41 oz Body Mass Index (BMI) 25.2 Intake & Output: Intake and Output for Last 24 Hours 06/26/24 06/27/24 06/28/24 23:59 23:59 23:59 Intake Total 2442.17 / 2442.17 1391.25 / 1391.25 1563.3333 / 1563.3333 Output Total 400 / 900 2500 / 2500 500 / 500 Balance 2042.17 / 1542.17 -1108.75 / -1108.75 1063.3333 / 1063.3333 Lab / Micro Data 06/28/24 06:30 06/28/24 06:30 Labs: Laboratory Results - last 24 hr 06/28/24 06:30: WBC 7.2, RBC 2.99 L, Hgb 10.4 L, Hct 28.8 L, MCV 96.3 H, MCH 34.8 H, MCHC 36.1 H, RDW Std Deviation 41.4, RDW Coeff of Fay 12.0, Plt Count 191, MPV 10.2, Sodium 131 L, Potassium 3.2 L, Chloride 96 L, Carbon Dioxide 22.4, Anion Gap 13, BUN 9, Creatinine 0.61 L, Estim Creat Clear Calc 58.58, Est GFR (MDRD) Non-Af 95, BUN/Creatinine Ratio 14.8, Glucose 160 H, Uric Acid 3.4 L, Calcium 7.8, Phosphorus 2.9, Total Bilirubin 0.72, Direct Bilirubin 0.41 H, AST 54 H, ALT 51 H, Alkaline Phosphatase 130 H, Total Protein 5.5 L, Albumin 3.1 L, Globulin 2.4 Micro: Microbiology 06/26/24 12:30 Mucosa - Nose Respiratory Panel (PCR) - Final 06/26/24 12:30 Mucosa - Nose SARS-CoV-2, Influenza & RSV (PCR) - Final Radiography Diagnostic Testing: Radiology Impression Venous Doppler Study 06/27/24 07:26 Interpretation Summary Acute deep vein thrombosis is noted in the left soleus vein. The remainder of the left lower extremity deep venous system is patent and compressible. Deep veins of the right lower extremity are patent and compressible segmentally. There is no evidence of right lower extremity deep vein thrombosis. Valvular competence appears intact within the proximal deep venous systems bilaterally. The great saphenous veins appear bilaterally patent and compressible segmentally. Ordering Physician: Deepika Damian Referring Physician: Karla Barton Performed By: Damion Anderson, RVT Hip X-Ray 06/27/24 14:45 IMPRESSION: Interval left total hip arthroplasty in good alignment. Reading Location: [facility] Physical Exam Narrative General - A&Ox3, NAD. VSS/AF Left lower extremity -incisional dressing C/D/I. SILT Sural, Saphenous, SPN, DPN, Tibial N. distributions. DP, PT 2+. BCR. DF, PF, EHL 5/5. No calf TTP. Assessment & Plan Assessment/Plan (1) Closed left hip fracture: QUALIFIERS: Encounter type: initial encounter Qualified Code(s): S72.002A - Fracture of unspecified part of neck of left femur, initial encounter for closed fracture PLAN: POD# 1 s/p left hip hemiarthroplasty -Hemoglobin 10.4 today down from 12.1. Acute blood loss anemia with expected drop from intraoperative blood loss and likely some residual bleeding from starting Eliquis last evening, questional dilution component. No evidence of active bleeding on exam. Hemodynamically stable. - Pain control - Medicine following for medical management - PT/OT -weightbearing as tolerated left lower extremity, posterior precautions - DVT -therapeutic Eliquis ordered, early mobilization - Case management - D/C planning. Anticipate placement. I will sign off at this time. Patient is stable for discharge from an orthopedic standpoint once disposition is arranged. Follow-up in 2 weeks with x-rays. Okay to remove dressing on postoperative day #5 and leave open to air if no drainage. Okay to shower with the dressing on on postoperative day #3. Weightbearing as tolerated left lower extremity, posterior precautions x 6 weeks. Please not hesitate to call if any questions or concerns arise. Thank you for this consultation.
[2024-06-28] MEDS: Aspirin E.C. 81 MG Tablet PO (11:26)
[2024-06-28] MEDS: Ipratropium/Albuterol Sulfate 3 ML AMPUL.NEB INHALATION ×2 (13:35→18:55)
--- NOTE | 2024-06-28 14:33 | CASEMGMT ---
Social Work- SW met with pt dtr Cindy, as pt was asleep and did not arouse despite repeated attempts to engage pt. A list of SNF providers including quality and resource use data and consistent with the patient?s preferred geographic region, medical needs, and insurance network were provided from the [facility]. Pt dtr reports that pt assists in care of his and she would be unable to assist pt. Pt dtr reports that pt would need to ambulate 35-40' independently to safely go home. Pt dtr selected [facility] as [facility] and [facility] as alternate. SW provided referral to TCU admissions. SW remains available to follow. JESS Marion
--- NOTE | 2024-06-28 15:32 | PCM.PN.HOSP ---
Reason for Visit Reason for Visit: Left lower extremity deformity and hip pain Subjective Subjective Patient states he is still having some pain. No significant complaints. States he is moving his bowels. Would like to go home however I am not sure that he is good to be able to ambulate and be functional enough to do so. He also helps take care of his . Awaiting further input from physical and Occupational Therapy and case management is following as well. He is amenable to going somewhere if need be. Objective Data Objective Data Vital Signs: Vital Signs Temp Pulse Resp BP Pulse Ox O2 Del Method O2 Flow Rate 98.3 F 85 20 H 120/78 95 Room Air 2 06/28/24 14:43 06/28/24 14:43 06/28/24 14:43 06/28/24 14:43 06/28/24 14:43 06/28/24 14:49 06/28/24 08:02 Oxygen Flow Rate (L/min) 2 Oxygen Delivery Method Room Air Weight: 67.2 kg Body Mass Index (BMI) 25.2 Intake & Output: Intake and Output for Last 24 Hours 06/26/24 06/27/24 06/28/24 23:59 23:59 23:59 Intake Total 2442.17 / 2442.17 1391.25 / 1391.25 1613.3333 / 1613.3333 Output Total 400 / 900 2500 / 2500 600 / 600 Balance 2042.17 / 1542.17 -1108.75 / -1108.75 1013.3333 / 1013.3333 Lab / Micro Data 06/28/24 06:30 06/28/24 06:30 Labs: Laboratory Results - last 24 hr 06/28/24 06:30: WBC 7.2, RBC 2.99 L, Hgb 10.4 L, Hct 28.8 L, MCV 96.3 H, MCH 34.8 H, MCHC 36.1 H, RDW Std Deviation 41.4, RDW Coeff of Fay 12.0, Plt Count 191, MPV 10.2, Sodium 131 L, Potassium 3.2 L, Chloride 96 L, Carbon Dioxide 22.4, Anion Gap 13, BUN 9, Creatinine 0.61 L, Estim Creat Clear Calc 58.58, Est GFR (MDRD) Non-Af 95, BUN/Creatinine Ratio 14.8, Glucose 160 H, Uric Acid 3.4 L, Calcium 7.8, Phosphorus 2.9, Total Bilirubin 0.72, Direct Bilirubin 0.41 H, AST 54 H, ALT 51 H, Alkaline Phosphatase 130 H, Total Protein 5.5 L, Albumin 3.1 L, Globulin 2.4 Micro: Microbiology 06/26/24 12:30 Mucosa - Nose Respiratory Panel (PCR) - Final 06/26/24 12:30 Mucosa - Nose SARS-CoV-2, Influenza & RSV (PCR) - Final Radiography Diagnostic Testing: Radiology Impression Venous Doppler Study 06/27/24 07:26 Interpretation Summary Acute deep vein thrombosis is noted in the left soleus vein. The remainder of the left lower extremity deep venous system is patent and compressible. Deep veins of the right lower extremity are patent and compressible segmentally. There is no evidence of right lower extremity deep vein thrombosis. Valvular competence appears intact within the proximal deep venous systems bilaterally. The great saphenous veins appear bilaterally patent and compressible segmentally. Ordering Physician: Deepika Damian Referring Physician: Karla Barton Performed By: Damion Anderson RVT Physical Exam Const alert, oriented x3, no apparent distress, average body habitus and well nourished; Negative for healthy appearing Constitutional Narrative: Elderly, white male, lying in bed, family at bedside, currently appears comfortable, nontoxic General Appearance: cooperative HEENT normocephalic and moist oral mucous membranes Head and Scalp: normocephalic Resp normal respiratory effort, no retractions, no use of accessory muscles and clear to auscultation bilaterally Resp Narrative: Diffusely diminished but clear Auscultation: Negative for rales, rhonchi or wheezes Cardio regular rate, regular rhythm, S1 normal heart sound, S2 normal heart sound, no murmurs, no rub, no gallops and no clicks GI normal to inspection, nondistended, normoactive bowel sounds, soft to palpation and non-tender Extremity no clubbing, cyanosis or edema Extremity Narrative: Left lower extremity with resolved deformity, able to move left lower extremity independently into flexion and extension, cap refill is good, pedal pulses and radial pulses are 2+ Neuro oriented x3, moves all extremities and no focal motor deficits Speech: speech normal Psych Psych Narrative: Patient still with flat affect and somewhat disinterested Assessment & Plan Assessment/Plan (1) Transaminitis: (2) Fever of unknown origin: (3) Hyponatremia: (4) Alcohol abuse: (5) Closed left hip fracture: QUALIFIERS: Encounter type: initial encounter Qualified Code(s): S72.002A - Fracture of unspecified part of neck of left femur, initial encounter for closed fracture (6) Hypoxia: PLAN: Plan Closed left hip fracture status post mechanical fall secondary to intoxication -Postop day 1 left hip hemiarthroplasty -Weightbearing as tolerated with posterior hip precautions -Ancef 1 g every 8 hours x 3 doses -Full anticoagulation given left lower extremity DVT with Eliquis 10 mg p.o. twice daily x 7 days then transition to 5 mg after 7 days -Silver dressing is to be maintained for 5 days -As needed pain medication as ordered -Transaminases are trending down so we will add back Tylenol a gram 3 times daily -PT/OT following postoperatively Fever secondary to left lower extremity DVT -Resolved Left soleal DVT -Patient extremely high risk for propagation given fracture and operative intervention -Patient on Eliquis 10 mg p.o. twice daily x 7 days with start date 06/28/2019 5 in the evening -Will then transition to 5 mg p.o. twice daily to follow -Continue Protonix especially while on anticoagulation Hypoxia -Resolved -Continue as needed albuterol -Continue I-S and Acapella -Continue to encourage out of bed and mobility Hypokalemia -P.o. potassium replacement 40 mill equivalents x 1 dose and recheck in a.m. -If remains low will reassess magnesium level Hyponatremia -Suspect related to his alcohol use -Continues to trend up -Uric acid was low and not indicative of SIADH -Stable since admission so we will repeat in a.m. Hypophosphatemia -Resolved Anemia -10.4 today down from 12.1 yesterday -Suspect somewhat dilutional as well as intraoperative blood losses -Continue to monitor with repeat CBC in a.m. -No obvious signs of bleeding acutely Transaminitis/hyperbilirubinemia -Liver normal-appearing on imaging -LFTs are trending down significantly and almost normalized -Bilirubin has normalized Alcohol abuse -Patient reporting only drinking 2-4 beers daily -Continue thiamine and folate -CIWA remains unremarkable GERD -Continue home Protonix Essential hypertension -Will plan on restarting amlodipine tomorrow -Monitor blood pressure Depression/anxiety -Continue home sertraline Impaired memory/dementia -Hold home donepezil DVT prophylaxis -Continue Eliquis CODE STATUS -CODE STATUS Charges/Coding Visit Charges Inpatient E&M: 94168 Subs Hosp L2
[2024-06-29] VITALS (8 sets, daily range): BP systolic 110–129; BP diastolic 61–68; PULSE 76–100; RESP 16–20; TEMP 36.7–37.3; O2SAT 94–99
[2024-06-29] MEDS: oxyCODONE 5 MG Tablet PO ×2 (01:25→20:51)
[2024-06-29] MEDS: Phenobarbital 32.4 MG Tablet PO ×3 (05:00→23:07)
[2024-06-29] MEDS: Acetaminophen 500 MG Tablet 1000 MG PO ×3 (06:00→20:48)
[2024-06-29 07:44] LABS: ALB/GLOB Ratio 1.3 RATIO (0.9-2.4); AST(SGOT) 44 U/L (<=37); Alanine Aminotransfer ALT/SGPT 34 U/L (<=46); Alkaline Phosphatase 114 U/L (40-129); Anion Gap 9 (5-15); BUN 8 mg/dL (4-19); BUN/Creat Ratio 13.3 RATIO (10-20); Calcium,Total 7.9 mg/dL (7.6-11.0); Carbon Dioxide 23.7 mmol/L (21.0-32.0); Chloride 99 mmol/L (98-108); Creatinine, Serum 0.63 mg/dL (0.70-1.20); EST Glomerular Filtration Rate 94 (>60); Estimated Creatinine Clearance 58.58 ml/min (50-250); Globulin 2.3 g/dL (2.2-4.2); Glucose 98 mg/dL (70-99); Potassium 3.6 mmol/L (3.3-5.1); Protein, Total 5.3 g/dL (5.9-8.4); Sodium Level 132 mmol/L (133-145); Total Bilirubin 0.87 mg/dL (0.00-1.30)
[2024-06-29 07:51] LABS: Absolute Lymphocyte Count 1.23 X10^3/uL (0.83-4.51); Absolute Neutrophil Count 4.6 X10^3/uL (2.0-7.7); Basophil# 0.04 X10^3/uL; Basophil% 0.6 % (0-1); Eosinophil# 0.22 X10^3/uL; Eosinophils% 3.1 % (0-5); Hemoglobin 9.7 g/dL (13.0-16.5); Lymphocyte # 1.23 X10^3/ul (0.83-4.51); Lymphocyte % 17.2 % (19-41); Mean Corp Hgb Conc 34.6 g/dL (32-36); Mean Corpuscular Hgb 33.6 pg (27.0-32.0); Mean Corpuscular Volume 96.9 fL (80-94); Mean Platelet Vol. 10.5 fl (6.2-12.0); Monocyte# 1.02 X10^3/uL; Monocyte% 14.2 % (0-10); NRBC Flagged by Analyzer 0 % (0-5); Neutrophil # 4.63 X10^3/uL (2.7-7.7); Neutrophil % 64.5 % (47-70); Platelet Count 196 K/mm3 (150-450); RBC Distribution Width CV 12.3 % (11.6-14.6); RBC Distribution Width SD 43.8 fl (35.1-43.9); Red Blood Count 2.89 M/mm3 (4.6-6.2); White Blood Count 7.2 K/mm3 (4.4-11.0)
[2024-06-29] MEDS: Ipratropium/Albuterol Sulfate 3 ML AMPUL.NEB INHALATION ×2 (07:59→19:15)
[2024-06-29] MEDS: Folic Acid 1 MG Tablet PO (08:33)
[2024-06-29] MEDS: Thiamine Hydrochloride 100 MG Tablet PO (08:33)
[2024-06-29] MEDS: Calcium Carbonate 500 MG Tablet PO ×3 (08:33→17:18)
[2024-06-29] MEDS: Sertraline 50 MG Tablet 25 MG PO (08:34)
[2024-06-29] MEDS: Pantoprazole Sodium 40 MG Tablet PO (08:34)
[2024-06-29] MEDS: APIXABAN 5 MG TABLET 10 MG PO ×2 (08:34→20:48)
[2024-06-29] MEDS: Aspirin E.C. 81 MG Tablet PO (08:34)
--- NOTE | 2024-06-29 08:56 | PN.HOSP_ITS ---
Reason for Visit Reason for Visit: Left hip pain status post fall Subjective Subjective Patient sleeping soundly. at bedside. States his pain is well-controlled but is pain in his back is chronic and more of an issue currently. They are aware he will need placement he would like to stay at the transitional care unit if at all possible. Objective Data Objective Data Vital Signs: Vital Signs Temp Pulse Resp BP Pulse Ox O2 Del Method O2 Flow Rate 99.1 F 87 20 H 129/68 H 94 Room Air 2 06/29/24 08:30 06/29/24 08:30 06/29/24 08:30 06/29/24 08:30 06/29/24 08:30 06/29/24 08:30 06/28/24 08:02 Oxygen Flow Rate (L/min) 2 Oxygen Delivery Method Room Air Weight: 67.2 kg Body Mass Index (BMI) 25.2 Intake & Output: Intake and Output for Last 24 Hours 06/27/24 06/28/24 06/29/24 23:59 23:59 23:59 Intake Total 1391.25 / 1391.25 2713.3333 / 2713.3333 Output Total 2500 / 2500 1200 / 1200 Balance -1108.75 / -1108.75 1513.3333 / 1513.3333 Lab / Micro Data 06/29/24 05:38 06/29/24 05:38 Labs: Laboratory Results - last 24 hr 06/28/24 06:30: Phosphorus 2.9, Total Bilirubin 0.72, Direct Bilirubin 0.41 H, A ST 54 H, ALT 51 H, Alkaline Phosphatase 130 H, Total Protein 5.5 L, Albumin 3.1 L, Globulin 2.4 06/29/24 05:38: WBC 7.2, RBC 2.89 L, Hgb 9.7 L, Hct 28.0 L, MCV 96.9 H, MCH 33.6 H, MCHC 34.6, RDW Std Deviation 43.8, RDW Coeff of Fay 12.3, Plt Count 196, MPV 10.5, Immature Gran % (Auto) 0.400, Neut % (Auto) 64.5, Lymph % (Auto) 17.2 L, M aftab % (Auto) 14.2 H, Eos % (Auto) 3.1, Baso % (Auto) 0.6, Absolute Neuts (auto) 4.6, Absolute Lymphs (auto) 1.23, Nucleated RBC % 0, Sodium 132 L, Potassium 3.6, Chloride 99, Carbon Dioxide 23.7, Anion Gap 9, BUN 8, Creatinine 0.63 L, Estim Creat Clear Calc 58.58, Est GFR (MDRD) Non-Af 94, BUN/Creatinine Ratio 13.3, Glucose 98, Calcium 7.9, Total Bilirubin 0.87, AST 44 H, ALT 34, Alkaline Phosphatase 114, Total Protein 5.3 L, Albumin 3.0 L, Globulin 2.3, Albumin/Globulin Ratio 1.3 Micro: Microbiology 06/26/24 12:30 Mucosa - Nose Respiratory Panel (PCR) - Final 06/26/24 12:30 Mucosa - Nose SARS-CoV-2, Influenza & RSV (PCR) - Final Physical Exam Const alert, no apparent distress, average body habitus and well nourished; Negative for healthy appearing Constitutional Narrative: Elderly, white male, sitting up in a chair side, napping, side, appears comfortable, nontoxic HEENT normocephalic and head/scalp atraumatic Resp normal respiratory effort, no retractions, no use of accessory muscles and clear to auscultation bilaterally Resp Narrative: Diffusely diminished but clear Auscultation: Negative for rales, rhonchi or wheezes Cardio regular rate, regular rhythm, S1 normal heart sound, S2 normal heart sound, no murmurs, no rub, no gallops and no clicks GI normal to inspection, nondistended, normoactive bowel sounds, soft to palpation and non-tender Extremity no clubbing, cyanosis or edema Extremity Narrative: Pedal pulses are 2+ bilaterally, radial pulses are 2+ bilaterally Skin Skin Narrative: Patient has a superficial abrasion of the Left forearm. Neuro Neuro Narrative: Patient sleeping Psych Psych Narrative: Patient sleeping Assessment & Plan Assessment/Plan (1) Transaminitis: (2) Fever of unknown origin: (3) Hyponatremia: (4) Alcohol abuse: (5) Closed left hip fracture: QUALIFIERS: Encounter type: initial encounter Qualified Code(s): S72.002A - Fracture of unspecified part of neck of left femur, initial encounter for closed fracture (6) Hypoxia: PLAN: Plan Closed left hip fracture status post mechanical fall secondary to intoxication -Postop day 2 left hip hemiarthroplasty -Weightbearing as tolerated with posterior hip precautions -Ancef 1 g every 8 hours x 3 doses -Full anticoagulation given left lower extremity DVT with Eliquis 10 mg p.o. twice daily x 7 days (day 2 of 7) then transition to 5 mg after 7 days -Silver dressing is to be maintained for 5 days -As needed pain medication as ordered -Transaminases are trending down so we will add back Tylenol a gram 3 times daily -PT/OT following postoperatively Left soleal DVT -Patient extremely high risk for propagation given fracture and operative intervention -Patient on Eliquis 10 mg p.o. twice daily x 7 days with start date 06/27/2024 in the evening -Will then transition to 5 mg p.o. twice daily to follow -Continue Protonix especially while on anticoagulation Hypokalemia -Resolved Hyponatremia -Suspect related to his alcohol use -Has stabilized in the 130s to 135 range -Uric acid was low and not indicative of SIADH -Stable since admission so we will repeat in a.m. Anemia - 9.7 today with slight trend down however patient has been on IV fluids started by orthopedic surgery continuously will discontinue these as I suspect this is diluting his hemoglobin some -Suspect somewhat dilutional as well as intraoperative blood losses -Continue to monitor with repeat CBC in a.m. -No obvious signs of bleeding acutely Transaminitis/hyperbilirubinemia -Resolved Alcohol abuse -Patient reporting only drinking 2-4 beers daily -Continue thiamine and folate -CIWA remains unremarkable GERD -Continue home Protonix Essential hypertension -Will plan on restarting amlodipine tomorrow -Monitor blood pressure Depression/anxiety -Continue home sertraline Impaired memory/dementia -Hold home donepezil DVT prophylaxis -Continue Eliquis CODE STATUS -Full code Charges/Coding Visit Charges Inpatient E&M: 20505 Subs Hosp L2
--- NOTE | 2024-06-29 10:17 | NURSING ---
downtime documentation 06/29/24 12am until 7am
[2024-06-29] MEDS: Senna/Docusate Sodium 1 Tablet 2 TABLET PO ×2 (11:13→20:47)
[2024-06-30] VITALS (10 sets, daily range): BP systolic 110–138; BP diastolic 62–72; PULSE 73–91; RESP 12–20; TEMP 36.8–36.9; O2SAT 93–99; BMI 25.1
[2024-06-30] MEDS: oxyCODONE 5 MG Tablet PO ×3 (02:42→15:48)
[2024-06-30] MEDS: Phenobarbital 32.4 MG Tablet PO (05:33)
[2024-06-30] MEDS: Acetaminophen 500 MG Tablet 1000 MG PO ×3 (05:33→23:18)
[2024-06-30] MEDS: Ipratropium/Albuterol Sulfate 3 ML AMPUL.NEB INHALATION ×3 (07:01→19:57)
[2024-06-30 07:24] LABS: Hematocrit 25.9 % (40-54); Hemoglobin 9.3 g/dL (13.0-16.5); Mean Corp Hgb Conc 35.9 g/dL (32-36); Mean Corpuscular Hgb 34.7 pg (27.0-32.0); Mean Corpuscular Volume 96.6 fL (80-94); Platelet Count 220 K/mm3 (150-450); RBC Distribution Width CV 12.2 % (11.6-14.6); RBC Distribution Width SD 42.1 fl (35.1-43.9); Red Blood Count 2.68 M/mm3 (4.6-6.2); White Blood Count 6.1 K/mm3 (4.4-11.0)
[2024-06-30 08:03] LABS: Anion Gap 9 (5-15); BUN 8 mg/dL (4-19); BUN/Creat Ratio 15.3 RATIO (10-20); Carbon Dioxide 23.1 mmol/L (21.0-32.0); Chloride 100 mmol/L (98-108); Creatinine, Serum 0.54 mg/dL (0.70-1.20); EST Glomerular Filtration Rate 99 (>60); Estimated Creatinine Clearance 58.58 ml/min (50-250); Glucose 88 mg/dL (70-99); Potassium 3.4 mmol/L (3.3-5.1); Sodium Level 131 mmol/L (133-145)
[2024-06-30 08:05] LABS: Calcium,Total 7.9 mg/dL (7.6-11.0)
--- NOTE | 2024-06-30 08:17 | PCM.PN.HOSP ---
Reason for Visit Reason for Visit: Diagnoses Overweight (06/26/24) Hypo-osmolality and hyponatremia (06/26/24) Unspecified dementia, unspecified severity, without behavioral disturbance, psychotic disturbance, mood disturbance, and anxiety (06/26/24) Alcohol abuse, uncomplicated (06/26/24) Essential (primary) hypertension (06/26/24) Hypoxemia (06/26/24) Fever, unspecified (06/26/24) Elevation of levels of liver transaminase levels (06/26/24) Fracture of unspecified part of neck of left femur, initial encounter for closed fracture (06/26/24) Unspecified fall, initial encounter (06/26/24) Subjective Subjective Patient is an 84-year-old gentleman who presented with mechanical fall down flight of stairs. Was found to be intoxicated. Imaging studies obtained on admission did show Acute fracture of the left femoral neck. Objective Data Objective Data Vital Signs: Vital Signs Temp Pulse Resp BP Pulse Ox O2 Del Method O2 Flow Rate 98.4 F 80 18 129/68 H 93 Room Air 2 06/30/24 02:54 06/30/24 07:01 06/30/24 07:01 06/30/24 02:54 06/30/24 07:01 06/30/24 07:01 06/28/24 08:02 Oxygen Flow Rate (L/min) 2 Oxygen Delivery Method Room Air Weight: 66.7 kg Body Mass Index (BMI) 25.1 Intake & Output: Intake and Output for Last 24 Hours 06/28/24 06/29/24 06/30/24 23:59 23:59 23:59 Intake Total 2713.3333 / 2713.3333 972.5 / 972.5 300 / 300 Output Total 1200 / 1200 300 / 300 Balance 1513.3333 / 1513.3333 972.5 / 972.5 0 / 0 Lab / Micro Data 06/30/24 07:09 06/30/24 07:09 Labs: Laboratory Results - last 24 hr 06/30/24 07:09: WBC 6.1, RBC 2.68 L, Hgb 9.3 L, Hct 25.9 L, MCV 96.6 H, MCH 34.7 H, MCHC 35.9, RDW Std Deviation 42.1, RDW Coeff of Fay 12.2, Plt Count 220, MPV 10.0, Sodium 131 L, Potassium 3.4, Chloride 100, Carbon Dioxide 23.1, Anion Gap 9, BUN 8, Creatinine 0.54 L, Estim Creat Clear Calc 58.58, Est GFR (MDRD) Non-Af 99, BUN/Creatinine Ratio 15.3, Glucose 88, Calcium 7.9 Micro: Microbiology 06/26/24 12:30 Mucosa - Nose Respiratory Panel (PCR) - Final 06/26/24 12:30 Mucosa - Nose SARS-CoV-2, Influenza & RSV (PCR) - Final Physical Exam Narrative GENERAL: cooperative HEENT: Atraumatic; normocephalic EYES; Anicteric, Normal Conjunctiva NECK; supple, normal thyroid, RESPIRATORY: Diminished to auscultation CARDIOVASCULAR: Regular S1 S2, GI: soft, normoactive bowel sounds, : No Renal angle tenderness; EXTREMITIES: No edema, no clubbing, MUSCULOSKELETAL: no muscle wasting NEURO: Awake; no lateralizing signs. SKIN: No Rash PSYCH; Flat affect Assessment & Plan Assessment/Plan (1) Transaminitis: (2) Fever of unknown origin: (3) Hyponatremia: (4) Alcohol abuse: (5) Closed left hip fracture: QUALIFIERS: Encounter type: initial encounter Qualified Code(s): S72.002A - Fracture of unspecified part of neck of left femur, initial encounter for closed fracture (6) Hypoxia: PLAN: Plan Patient is an 84-year-old gentleman who presented with mechanical fall down flight of stairs. Was found to be intoxicated. Imaging studies obtained on admission did show Acute fracture of the left femoral neck. 1. Acute mechanical fall with resultant acute fracture involving the left femoral neck secondary to alcohol intoxication ?Imaging studies obtained on admission did show Acute fracture of the left femoral neck. Closed left hip fracture status post mechanical fall secondary to intoxicationPatient underwent left hip hemiarthroplasty by Dr. Thorpe on 06/27/2024. Subsequently managed with pain management PT OT as tolerated 2. Physical deconditioning/debility disease ? Secondary to above. Requested for PT OT eval and outreach and education social worker to assist with discharge planning #3. Acute left soleal DVT -Patient extremely high risk for propagation given fracture and operative intervention. Patient subsequently started on on apixaban on 06/27/2024 with plans to treat with 10 mg twice daily for 7 days and subsequently 5 mg twice daily 4. Hypokalemia -Corrected per protocol 5. Hyponatremia ? Do suspect some chronicity given patient alcohol use. Patient sodium level stable 6. Chronic alcohol use ? Cessation encouraged. Patient placed on thiamine and folate. Was also placed on CIWA protocol for alcohol withdrawal and has so far remained unremarkable 7. Anemia ? Secondary to chronic disorder monitoring H&H and transfuse if patient becomes symptomatic or hemoglobin falls below 7 8. GERD ? Patient is on PPI 9. Hypertension ? Blood pressure controlled, home medications continued with dose adjustment as needed 10. Acute transaminitis ? Secondary to chronic alcohol use monitoring LFTs 11. Depression with anxiety ? Patient is on sertraline 12. Impaired memory/dementia -Hold home donepezil Time spent in the patient's overall evaluation,decision-making process, review of diagnostic data, adjustment of management, discussion with other providers, nursing nursing and ancillary staff involved in patient's care documentation, 38 Minutes Charges/Coding Visit Charges Inpatient E&M: 74429 Subs Hosp L2
--- NOTE | 2024-06-30 09:48 | CASEMGMT ---
Social Work SW spoke w/Melonie in TCU, they will not have a bed until midweek. SW spoke w/physician, pt is medically ready for discharge today. As per RN, pt's family asking for an update. SW called pt's daughter Cindy, however she was not the family member who had called in. SW explained that [facility]CU does not have a bed, and will make the referral to [facility], daughter states understanding. She does state that if a bed were to open up, she would prefer [facility]CU. SW will keep daughter informed. SW then spoke w/pt in room, pt's and 's daughter present. SW let them know also(these are the family members looking for an update) that [facility]CU does not have a bed, and SW will make referral to [facility]. All in agreement that this is the next choice. Pt's states daughter Cindy is the POA. SW explained will make the referral and keep family updated. SW made a referral to [facility] in [facility], SW will continue to follow. INEZ Sharma
[2024-06-30] MEDS: Calcium Carbonate 500 MG Tablet PO ×3 (10:18→17:57)
[2024-06-30] MEDS: Aspirin E.C. 81 MG Tablet PO (10:18)
[2024-06-30] MEDS: APIXABAN 5 MG TABLET 10 MG PO ×2 (10:19→23:17)
[2024-06-30] MEDS: Senna/Docusate Sodium 1 Tablet 2 TABLET PO ×2 (10:19→23:17)
[2024-06-30] MEDS: Folic Acid 1 MG Tablet PO (10:25)
[2024-06-30] MEDS: Pantoprazole Sodium 40 MG Tablet PO (10:25)
[2024-06-30] MEDS: Sertraline 50 MG Tablet 25 MG PO (10:25)
[2024-06-30] MEDS: Thiamine Hydrochloride 100 MG Tablet PO (10:25)
[2024-07-01] VITALS (7 sets, daily range): BP systolic 122–136; BP diastolic 59–70; PULSE 72–99; RESP 14–18; TEMP 36.8–37.2; O2SAT 96–98; BMI 26.4
[2024-07-01] MEDS: oxyCODONE 5 MG Tablet PO ×2 (03:23→11:38)
[2024-07-01] MEDS: Acetaminophen 500 MG Tablet 1000 MG PO (03:23)
[2024-07-01 06:47] LABS: Absolute Lymphocyte Count 1.08 X10^3/uL (0.83-4.51); Absolute Neutrophil Count 3.3 X10^3/uL (2.0-7.7); Basophil# 0.06 X10^3/uL; Eosinophil# 0.54 X10^3/uL; Eosinophils% 9.4 % (0-5); Hematocrit 26.5 % (40-54); Hemoglobin 9.2 g/dL (13.0-16.5); Lymphocyte # 1.08 X10^3/ul (0.83-4.51); Lymphocyte % 18.7 % (19-41); Mean Corp Hgb Conc 34.7 g/dL (32-36); Mean Corpuscular Hgb 33.1 pg (27.0-32.0); Mean Corpuscular Volume 95.3 fL (80-94); Mean Platelet Vol. 9.8 fl (6.2-12.0); Monocyte# 0.79 X10^3/uL; Monocyte% 13.7 % (0-10); NRBC Flagged by Analyzer 0 % (0-5); Neutrophil # 3.27 X10^3/uL (2.7-7.7); Neutrophil % 56.7 % (47-70); Platelet Count 237 K/mm3 (150-450); RBC Distribution Width CV 12.1 % (11.6-14.6); RBC Distribution Width SD 42.4 fl (35.1-43.9); Red Blood Count 2.78 M/mm3 (4.6-6.2); White Blood Count 5.8 K/mm3 (4.4-11.0)
[2024-07-01 07:14] LABS: Anion Gap 12 (5-15); BUN 10 mg/dL (4-19); BUN/Creat Ratio 16.9 RATIO (10-20); Calcium,Total 8.2 mg/dL (7.6-11.0); Carbon Dioxide 19.9 mmol/L (21.0-32.0); Chloride 100 mmol/L (98-108); EST Glomerular Filtration Rate 96 (>60); Estimated Creatinine Clearance 58.58 ml/min (50-250); Glucose 92 mg/dL (70-99); Magnesium 1.9 mg/dL (1.5-2.2); Phosphorus 3.1 mg/dL (2.7-4.5); Potassium 3.2 mmol/L (3.3-5.1); Sodium Level 133 mmol/L (133-145)
--- NOTE | 2024-07-01 07:47 | PN.HOSP_ITS ---
Reason for Visit Reason for Visit: Diagnoses Overweight (06/26/24) Hypo-osmolality and hyponatremia (06/26/24) Unspecified dementia, unspecified severity, without behavioral disturbance, psychotic disturbance, mood disturbance, and anxiety (06/26/24) Alcohol abuse, uncomplicated (06/26/24) Essential (primary) hypertension (06/26/24) Hypoxemia (06/26/24) Fever, unspecified (06/26/24) Elevation of levels of liver transaminase levels (06/26/24) Fracture of unspecified part of neck of left femur, initial encounter for closed fracture (06/26/24) Unspecified fall, initial encounter (06/26/24) Subjective Subjective Patient seen awaiting transfer to a prison facility. Diagnostic data reviewed significant for hemoglobin of 9.2 and potassium of 3.1 this a.m. Objective Data Objective Data Vital Signs: Vital Signs Temp Pulse Resp BP Pulse Ox O2 Del Method O2 Flow Rate 99.0 F 72 16 135/59 H 98 Room Air 2 07/01/24 03:42 07/01/24 04:15 07/01/24 03:42 07/01/24 03:42 07/01/24 03:42 07/01/24 03:42 06/28/24 08:02 Oxygen Flow Rate (L/min) 2 Oxygen Delivery Method Room Air Weight: 70.2 kg Body Mass Index (BMI) 26.4 Intake & Output: Intake and Output for Last 24 Hours 06/29/24 06/30/24 07/01/24 23:59 23:59 23:59 Intake Total 972.5 / 972.5 300 / 700 600 / 600 Output Total 300 / 300 Balance 972.5 / 972.5 0 / 400 600 / 600 Lab / Micro Data 07/01/24 06:27 07/01/24 06:27 Labs: Laboratory Results - last 24 hr 06/30/24 07:09: Sodium 131 L, Potassium 3.4, Chloride 100, Carbon Dioxide 23.1, Anion Gap 9, BUN 8, Creatinine 0.54 L, Estim Creat Clear Calc 58.58, Est GFR (MDRD) Non-Af 99, BUN/Creatinine Ratio 15.3, Glucose 88, Calcium 7.9 07/01/24 06:27: WBC 5.8, RBC 2.78 L, Hgb 9.2 L, Hct 26.5 L, MCV 95.3 H, MCH 33.1 H, MCHC 34.7, RDW Std Deviation 42.4, RDW Coeff of Fay 12.1, Plt Count 237, MPV 9.8, Immature Gran % (Auto) 0.500, Neut % (Auto) 56.7, Lymph % (Auto) 18.7 L, M aftab % (Auto) 13.7 H, Eos % (Auto) 9.4 H, Baso % (Auto) 1.0, Absolute Neuts (auto) 3.3, Absolute Lymphs (auto) 1.08, Nucleated RBC % 0, Sodium 133, P otassium 3.2 L, Chloride 100, Carbon Dioxide 19.9 L, Anion Gap 12, BUN 10, C reatinine 0.60 L, Estim Creat Clear Calc 58.58, Est GFR (MDRD) Non-Af 96, BUN/Creatinine Ratio 16.9, Glucose 92, Calcium 8.2, Phosphorus 3.1, Magnesium 1.9 Micro: Microbiology 06/26/24 12:30 Mucosa - Nose Respiratory Panel (PCR) - Final 06/26/24 12:30 Mucosa - Nose SARS-CoV-2, Influenza & RSV (PCR) - Final Physical Exam Narrative GENERAL: cooperative HEENT: Atraumatic; normocephalic EYES; Anicteric, Normal Conjunctiva NECK; supple, normal thyroid, RESPIRATORY: Diminished to auscultation CARDIOVASCULAR: Regular S1 S2, GI: soft, normoactive bowel sounds, : No Renal angle tenderness; EXTREMITIES: No edema, no clubbing, MUSCULOSKELETAL: no muscle wasting NEURO: Awake; no lateralizing signs. SKIN: No Rash PSYCH; Flat affect Assessment & Plan Assessment/Plan (1) Transaminitis: (2) Fever of unknown origin: (3) Hyponatremia: (4) Alcohol abuse: (5) Closed left hip fracture: QUALIFIERS: Encounter type: initial encounter Qualified Code(s): S72.002A - Fracture of unspecified part of neck of left femur, initial encounter for closed fracture (6) Hypoxia: PLAN: Plan Patient is an 84-year-old gentleman who presented with mechanical fall down flight of stairs. Was found to be intoxicated. Imaging studies obtained on admission did show Acute fracture of the left femoral neck. 1. Acute mechanical fall with resultant acute fracture involving the left femoral neck secondary to alcohol intoxication ?Imaging studies obtained on admission did show Acute fracture of the left femoral neck. Closed left hip fracture status post mechanical fall secondary to intoxicationPatient underwent left hip hemiarthroplasty by Dr. Thorpe on 06/27/2024. Subsequently managed with pain management PT OT as tolerated ? 07/01/2024 patient seen currently rates his pain 5 out of 10. Awaiting insurance pre-CERT prior to transfer to prison facility 2. Physical deconditioning/debility disease ? Secondary to above. Requested for PT OT eval and psychiatric social worker to assist with discharge planning 3. Acute left soleal DVT -Patient extremely high risk for propagation given fracture and operative intervention. Patient subsequently started on on apixaban on 06/27/2024 with plans to treat with 10 mg twice daily for 7 days and subsequently 5 mg twice daily 4. Hypokalemia -Corrected per protocol ?; patient potassium still remains low additional replacement given 5. Hyponatremia ? Do suspect some chronicity given patient alcohol use. Patient sodium level stable 6. Chronic alcohol use ? Cessation encouraged. Patient placed on thiamine and folate. Was also placed on CIWA protocol for alcohol withdrawal and has so far remained unremarkable 7. Anemia ? Secondary to chronic disorder monitoring H&H and transfuse if patient becomes symptomatic or hemoglobin falls below 7 ?/04/2024; hemoglobin remains low at 9.2 subsequent monitoring ordered 8. GERD ? Patient is on PPI 9. Hypertension ? Blood pressure controlled, home medications continued with dose adjustment as needed 10. Acute transaminitis ? Secondary to chronic alcohol use monitoring LFTs 11. Depression with anxiety ? Patient is on sertraline 12. Impaired memory/dementia -Hold home donepezil Time spent in the patient's overall evaluation,decision-making process, review of diagnostic data, adjustment of management, discussion with other providers, nursing nursing and ancillary staff involved in patient's care documentation, 36 Minutes Charges/Coding Visit Charges Inpatient E&M: 51452 Subs Hosp L2
[2024-07-01] MEDS: Ipratropium/Albuterol Sulfate 3 ML AMPUL.NEB INHALATION ×2 (07:55→13:38)
[2024-07-01] MEDS: Thiamine Hydrochloride 100 MG Tablet PO (09:40)
[2024-07-01] MEDS: Pantoprazole Sodium 40 MG Tablet PO (09:40)
[2024-07-01] MEDS: Aspirin E.C. 81 MG Tablet PO (09:41)
[2024-07-01] MEDS: APIXABAN 5 MG TABLET 10 MG PO (09:41)
[2024-07-01] MEDS: Sertraline 50 MG Tablet 25 MG PO (09:41)
[2024-07-01] MEDS: Senna/Docusate Sodium 1 Tablet 2 TABLET PO (09:41)
[2024-07-01] MEDS: Calcium Carbonate 500 MG Tablet PO ×2 (09:41→11:39)
[2024-07-01] MEDS: Folic Acid 1 MG Tablet PO (09:42)
--- NOTE | 2024-07-01 10:11 | CASEMGMT ---
[facility] has obtained auth to admit. SW updated. Harriett Villagomez DC Planning Asst.
--- NOTE | 2024-07-01 10:19 | PCM.TXEXTCAR ---
Diet Diet Order/Speech Therapy: 06/28/24 07:27 Diet: Regular - General Routine Orders/Code Status Code Status: Full Code DC O2, CPAP, BIPAP needs Home O2 Discharge instructions: No Wound(s) LEFT ELBOW: Wound Type: Abrasion LEFT HIP, LATERAL: Wound Type: Surgical Incision rt upper thigh: Wound Type: Surgical Incision Therapies Physical Therapy: Eval and Treat Occupational Therapy: Eval and Treat Problem/Diagnosis (1) Transaminitis: Status: Acute Code(s): R74.01 - Elevation of levels of liver transaminase levels (2) Fever of unknown origin: Status: Acute Code(s): R50.9 - Fever, unspecified (3) Hyponatremia: Status: Acute Code(s): E87.1 - Hypo-osmolality and hyponatremia (4) Alcohol abuse: Status: Acute Code(s): F10.10 - Alcohol abuse, uncomplicated (5) Closed left hip fracture: Status: Acute Code(s): S72.002A - Fracture of unspecified part of neck of left femur, initial encounter for closed fracture (6) Hypoxia: Status: Acute Code(s): R09.02 - Hypoxemia Plan Patient is an 84-year-old gentleman who presented with mechanical fall down flight of stairs. Was found to be intoxicated. Imaging studies obtained on admission did show Acute fracture of the left femoral neck. 1. Acute mechanical fall with resultant acute fracture involving the left femoral neck secondary to alcohol intoxication ?Imaging studies obtained on admission did show Acute fracture of the left femoral neck. Closed left hip fracture status post mechanical fall secondary to intoxicationPatient underwent left hip hemiarthroplasty by Dr. Thorpe on 06/27/2024. Subsequently managed with pain management PT OT as tolerated ? 07/01/2024 patient seen currently rates his pain 5 out of 10. Awaiting insurance pre-CERT prior to transfer to jail facility 2. Physical deconditioning/debility disease ? Secondary to above. Requested for PT OT eval and social work nurse to assist with discharge planning 3. Acute left soleal DVT -Patient extremely high risk for propagation given fracture and operative intervention. Patient subsequently started on on apixaban on 06/27/2024 with plans to treat with 10 mg twice daily for 7 days and subsequently 5 mg twice daily 4. Hypokalemia -Corrected per protocol ?; patient potassium still remains low additional replacement given 5. Hyponatremia ? Do suspect some chronicity given patient alcohol use. Patient sodium level stable 6. Chronic alcohol use ? Cessation encouraged. Patient placed on thiamine and folate. Was also placed on CIWA protocol for alcohol withdrawal and has so far remained unremarkable 7. Anemia ? Secondary to chronic disorder monitoring H&H and transfuse if patient becomes symptomatic or hemoglobin falls below 7 ?/04/2024; hemoglobin remains low at 9.2 subsequent monitoring ordered 8. GERD ? Patient is on PPI 9. Hypertension ? Blood pressure controlled, home medications continued with dose adjustment as needed 10. Acute transaminitis ? Secondary to chronic alcohol use monitoring LFTs 11. Depression with anxiety ? Patient is on sertraline 12. Impaired memory/dementia -Hold home donepezil Time spent in the patient's overall evaluation,decision-making process, review of diagnostic data, adjustment of management, discussion with other providers, nursing nursing and ancillary staff involved in patient's care documentation, 36 Minutes Allergies/Procedures Done in Hospital Allergies levofloxacin (From Levaquin) Allergy (Verified 06/25/24 21:45) Vomiting Type of Care/Length of Stay Estimated LOS: Convalescent Care Less Than 30 days Type of Care Needed: Skilled Rehab Potential: Good Prognosis: Good Additional Orders/Day of Discharge Day of Discharge: 07/01/24 Dietary and Speech Recommendations Dietitian Recommendations/Changes: Continue liberal regular diet as ordered Will order 4 oz ensure plus high protein tid w/ medpass for increased nutrition if consumed. Discharge Plan Admission Admit Date/Time: 06/26/24 01:57 Attending Provider: Ezra Tracey Primary Care Provider: Karla Barton Consulting Providers: Ezra Cruz; Ryland Thorpe; Deepika Damian Discharge Orders/Prescriptions Prescriptions: New albuterol sulfate 2.5 mg /3 mL (0.083 %) Solution For Nebulization 2.5 mg inhalation Q2H PRN PRN (Reason: SOB &/OR WHEEZING) Qty: 0 0RF acetaminophen 500 mg Tablet 1,000 mg PO Q8 Qty: 0 0RF calcium carbonate 200 mg calcium (500 mg) Tablet,Chewable 500 mg PO TIDCM Qty: 0 0RF Eliquis 5 mg Tablet 5 mg PO BID Qty: 180 0RF Ensure Plus High Protein 0.08 gram-1.5 kcal/mL Liquid 120 ml PO TIDCM Qty: 0 0RF ondansetron HCl 8 mg Tablet 8 mg PO Q8H PRN PRN (Reason: Nausea) Qty: 0 0RF folic acid 1 mg Tablet 1 mg PO DAILY@0800 Qty: 0 0RF oxycodone 5 mg Tablet 5 mg PO Q4H PRN PRN (Reason: Pain Score 4-10) 3 Days Qty: 14 0RF sennosides-docusate sodium [Stimulant Laxative Plus] 8.6-50 mg Tablet 2 tab PO BID Qty: 0 0RF potassium chloride 20 mEq Tablet,Er Particles/Crystals 20 meq PO BIDCM Qty: 0 0RF thiamine HCl (vitamin B1) 100 mg Tablet 100 mg PO DAILYCM Qty: 0 0RF Continued donepezil 10 MG tablet 10 mg PO DAILY amlodipine 5 MG tablet 5 mg PO DAILY pantoprazole 40 MG tablet 40 mg PO DAILY sertraline 25 MG tablet 25 mg PO DAILY miglitol 50 mg Tablet 50 mg PO DAILY Rx Instructions: administer at the beginning of each meal aspirin 81 mg Tablet,Delayed Release (Dr/Ec) 81 mg PO DAILY Referrals / Follow Up: Karla Barton MD [Primary Care Provider] - Within 2 Weeks Ryland Thorpe DO [Med Staff - Active Staff] - Within 2 Weeks Disposition Disposition (needs filled in before D/C Order can be placed): [facility] ([facility]) Closed left hip fracture Qualifiers: Encounter type: initial encounter Qualified Code(s): S72.002A - Fracture of unspecified part of neck of left femur, initial encounter for closed fracture
--- NOTE | 2024-07-01 10:56 | CASEMGMT ---
Addendum entered by Venita Valenzuela 07/01/24 11:10: Pt's daughter Cindy called back, SW let her know pt is getting picked up at 2pm, was approved to [facility]. Daughter states understanding and in agreement w/plan. INEZ Sharma Original Note: Social Work Pt approved by insurance to go to [facility] today. SW completed hospital exemption in the [employer] system. D/C manager financial planning Harriett setting up the discharge. No further social service needs anticipated at this time. INEZ Sharma
--- NOTE | 2024-07-01 11:17 | NURSING ---
REPORT CALLED TO [facility] ON [address] AT [facility]
--- NOTE | 2024-07-01 11:27 | CASEMGMT ---
Discharge Planning Discharge orders, signed med list, and transport time sent to [facility]. Physicians will transport pt by wheelchair at 2p. Nursing, SW, pt, and his updated. VM left for his daughter/HC POA (Cindy). Harriett Villagomez DC Planning Asst.
[2024-07-01] MEDS: Potassium Chloride Oral Tablet 20 MEQ 40 MEQ PO (11:42)
--- NOTE | 2024-07-01 15:19 | PHA.DC.MR.R ---
Pharmacy CT Med Reconciliation Pharmacy Service has performed discharge medication reconciliation for this patient. The patient's discharge medication list was reviewed for discrepancies and discrepancies were resolved. Medications at Discharge Home Medications amlodipine 5 mg tablet 5 mg PO DAILY blood pressure 05/11/17 donepezil 10 mg tablet 10 mg PO DAILY memory 05/11/17 pantoprazole 40 mg tablet,delayed release 40 mg PO DAILY reflux 05/11/17 sertraline 25 mg tablet 25 mg PO DAILY 11/30/18 aspirin 81 mg tablet,delayed release 81 mg PO DAILY 04/28/22 miglitol 50 mg tablet 50 mg PO DAILY 04/28/22 acetaminophen 500 mg tablet 1,000 mg (2 x 500 mg) PO Q8 #0 tabs 07/01/24 albuterol sulfate 2.5 mg/3 mL (0.083 %) solution for nebulization 2.5 mg (3 mL) inhalation Q2H PRN PRN SOB &/OR WHEEZING #0 mL 07/01/24 apixaban 5 mg tablet (Eliquis) 5 mg PO BID #180 tabs 07/01/24 calcium carbonate 500 mg (2.5 x 200 mg calcium (500 mg)) PO TIDCM #0 tabs 07/01/24 folic acid 1 mg tablet 1 mg PO DAILY@0800 #0 tabs 07/01/24 food supplemt, lactose-reduced 0.08 gram-1.5 kcal/mL oral liquid (Ensure Plus High Protein) 120 ml PO TIDCM #0 mL 07/01/24 ondansetron HCl 8 mg tablet 8 mg PO Q8H PRN PRN Nausea #0 tabs 07/01/24 oxycodone 5 mg tablet 5 mg PO Q4H PRN PRN Pain Score 4-10 3 days #14 tabs 07/01/24 potassium chloride 20 mEq tablet,extended release(part/cryst) 20 meq PO BIDCM #0 tabs 07/01/24 sennosides 8.6 mg-docusate sodium 50 mg tablet (Stimulant Laxative Plus) 2 tab PO BID #0 tabs 07/01/24 thiamine HCl (vitamin B1) 100 mg tablet 100 mg PO DAILYCM #0 tabs 07/01/24
--- NOTE | 2024-07-02 10:07 | DS.PCM_ITS ---
Providers Date of Admission: 06/26/24 Date of Discharge: 07/01/24 Primary Care Physician: Dr. Karla Barton MD Consultations 06/26/24 02:57 Consult: Orthopedics Routine Consulting Provider: Ryland Thorpe Reason for Consult: Left Femoral Neck Fx. EMERGENT Consult: No MD Notified: Yes Date Notified: 06/26/24 Time Notified: 02:01 Method of Notification: ED Physician Initiated Reason For Visit: LEFT FEMORAL NECK FRACTURE AFTER FALL DOWN STEPS Diagnosis Discharge Diagnosis (1) Transaminitis: Status: Acute Code(s): R74.01 - Elevation of levels of liver transaminase levels (2) Fever of unknown origin: Status: Acute Code(s): R50.9 - Fever, unspecified (3) Hyponatremia: Status: Acute Code(s): E87.1 - Hypo-osmolality and hyponatremia (4) Alcohol abuse: Status: Acute Code(s): F10.10 - Alcohol abuse, uncomplicated (5) Closed left hip fracture: Status: Acute Code(s): S72.002A - Fracture of unspecified part of neck of left femur, initial encounter for closed fracture Qualifiers: Encounter type: initial encounter Qualified Code(s): S72.002A - Fracture of unspecified part of neck of left femur, initial encounter for closed fracture (6) Hypoxia: Status: Acute Code(s): R09.02 - Hypoxemia Plan Patient is an 84-year-old gentleman who presented with mechanical fall down flight of stairs. Was found to be intoxicated. Imaging studies obtained on admission did show Acute fracture of the left femoral neck. 1. Acute mechanical fall with resultant acute fracture involving the left femoral neck secondary to alcohol intoxication ?Imaging studies obtained on admission did show Acute fracture of the left femoral neck. Closed left hip fracture status post mechanical fall secondary to intoxicationPatient underwent left hip hemiarthroplasty by Dr. Thorpe on 06/27/2024. Subsequently managed with pain management PT OT as tolerated ? 07/01/2024 patient seen currently rates his pain 5 out of 10. Awaiting insurance pre-CERT prior to transfer to half-way facility 2. Physical deconditioning/debility disease ? Secondary to above. Requested for PT OT eval and socially responsible investment adviser to assist with discharge planning 3. Acute left soleal DVT -Patient extremely high risk for propagation given fracture and operative intervention. Patient subsequently started on on apixaban on 06/27/2024 with plans to treat with 10 mg twice daily for 7 days and subsequently 5 mg twice daily 4. Hypokalemia -Corrected per protocol ?; patient potassium still remains low additional replacement given 5. Hyponatremia ? Do suspect some chronicity given patient alcohol use. Patient sodium level stable 6. Chronic alcohol use ? Cessation encouraged. Patient placed on thiamine and folate. Was also placed on CIWA protocol for alcohol withdrawal and has so far remained unremarkable 7. Anemia ? Secondary to chronic disorder monitoring H&H and transfuse if patient becomes symptomatic or hemoglobin falls below 7 ?; hemoglobin remains low at 9.2 subsequent monitoring ordered 8. GERD ? Patient is on PPI 9. Hypertension ? Blood pressure controlled, home medications continued with dose adjustment as needed 10. Acute transaminitis ? Secondary to chronic alcohol use monitoring LFTs 11. Depression with anxiety ? Patient is on sertraline 12. Impaired memory/dementia -Hold home donepezil Time spent in the patient's overall evaluation,decision-making process, review of diagnostic data, adjustment of management, discussion with other providers, nursing nursing and ancillary staff involved in patient's care documentation, 36 Minutes Medications at Discharge Home Medications amlodipine 5 mg tablet 5 mg PO DAILY blood pressure 05/11/17 donepezil 10 mg tablet 10 mg PO DAILY memory 05/11/17 pantoprazole 40 mg tablet,delayed release 40 mg PO DAILY reflux 05/11/17 sertraline 25 mg tablet 25 mg PO DAILY 11/30/18 aspirin 81 mg tablet,delayed release 81 mg PO DAILY 04/28/22 miglitol 50 mg tablet 50 mg PO DAILY 04/28/22 acetaminophen 500 mg tablet 1,000 mg (2 x 500 mg) PO Q8 #0 tabs 07/01/24 albuterol sulfate 2.5 mg/3 mL (0.083 %) solution for nebulization 2.5 mg (3 mL) inhalation Q2H PRN PRN SOB &/OR WHEEZING #0 mL 07/01/24 apixaban 5 mg tablet (Eliquis) 5 mg PO BID #180 tabs 07/01/24 calcium carbonate 500 mg (2.5 x 200 mg calcium (500 mg)) PO TIDCM #0 tabs 07/01/24 folic acid 1 mg tablet 1 mg PO DAILY@0800 #0 tabs 07/01/24 food supplemt, lactose-reduced 0.08 gram-1.5 kcal/mL oral liquid (Ensure Plus High Protein) 120 ml PO TIDCM #0 mL 07/01/24 ondansetron HCl 8 mg tablet 8 mg PO Q8H PRN PRN Nausea #0 tabs 07/01/24 oxycodone 5 mg tablet 5 mg PO Q4H PRN PRN Pain Score 4-10 3 days #14 tabs 07/01/24 potassium chloride 20 mEq tablet,extended release(part/cryst) 20 meq PO BIDCM #0 tabs 07/01/24 sennosides 8.6 mg-docusate sodium 50 mg tablet (Stimulant Laxative Plus) 2 tab PO BID #0 tabs 07/01/24 thiamine HCl (vitamin B1) 100 mg tablet 100 mg PO DAILYCM #0 tabs 07/01/24 Physical Exam Narrative GENERAL: cooperative HEENT: Atraumatic; normocephalic EYES; Anicteric, Normal Conjunctiva NECK; supple, normal thyroid, RESPIRATORY: Diminished to auscultation CARDIOVASCULAR: Regular S1 S2, GI: soft, normoactive bowel sounds, : No Renal angle tenderness; EXTREMITIES: No edema, no clubbing, MUSCULOSKELETAL: no muscle wasting NEURO: Awake; no lateralizing signs. SKIN: No Rash PSYCH; Flat affect Weight / BMI Weight Weight: 70.2 kg Body Mass Index (BMI) 26.4 ABG / Lab / Microbiology Data 07/01/24 06:27 07/01/24 06:27 Microbiology: Microbiology 06/26/24 12:30 Mucosa - Nose Respiratory Panel (PCR) - Final 06/26/24 12:30 Mucosa - Nose SARS-CoV-2, Influenza & RSV (PCR) - Final D/C Instructions Discharge Diet: No restrictions Discharge Activity: Return to Normal Activity Call your doctor if you observe: Fever of 101 or Higher, Shortness of breath, Fainting spells and Chest pain DC O2, CPAP, BIPAP Needs Home O2 Discharge instructions: No Meaningful Use Info Meaningful Use Meaningful Use Diagnoses (Choose all that apply): None applicable Ischemic Stroke Statin Dosing Therapy Reference: STATIN DOSE THERAPY REFERENCE: * Patients > 75 years receive moderate or high dose statin therapy. * Patients 75 years or YOUNGER should receive HIGH intensity statin dose unless contraindicated. You will be required to document reason for non-treatment if statin daily dose does not meet guidelines. HIGH DOSE STATIN THERAPY DAILY Atorvastatin > than or = to 40 mg Rosuvastatin > than or = to 20 mg Amlodipine + Atorvastatin > than or = to 2.5/40 mg Ezetimibe + Simvastatin 10/80 mg Simvastatin 80mg Discharge Plan Admission Admit Date/Time: 06/26/24 01:57 Attending Provider: Ezra Tracey Primary Care Provider: Karla Barton Consulting Providers: Ezra Cruz; Ryland Thorpe; Deepika Damian Discharge Orders/Prescriptions Prescriptions: New albuterol sulfate 2.5 mg /3 mL (0.083 %) Solution For Nebulization 2.5 mg inhalation Q2H PRN PRN (Reason: SOB &/OR WHEEZING) Qty: 0 0RF acetaminophen 500 mg Tablet 1,000 mg PO Q8 Qty: 0 0RF calcium carbonate 200 mg calcium (500 mg) Tablet,Chewable 500 mg PO TIDCM Qty: 0 0RF Eliquis 5 mg Tablet 5 mg PO BID Qty: 180 0RF Ensure Plus High Protein 0.08 gram-1.5 kcal/mL Liquid 120 ml PO TIDCM Qty: 0 0RF ondansetron HCl 8 mg Tablet 8 mg PO Q8H PRN PRN (Reason: Nausea) Qty: 0 0RF folic acid 1 mg Tablet 1 mg PO DAILY@0800 Qty: 0 0RF oxycodone 5 mg Tablet 5 mg PO Q4H PRN PRN (Reason: Pain Score 4-10) 3 Days Qty: 14 0RF sennosides-docusate sodium [Stimulant Laxative Plus] 8.6-50 mg Tablet 2 tab PO BID Qty: 0 0RF potassium chloride 20 mEq Tablet,Er Particles/Crystals 20 meq PO BIDCM Qty: 0 0RF thiamine HCl (vitamin B1) 100 mg Tablet 100 mg PO DAILYCM Qty: 0 0RF Continued donepezil 10 MG tablet 10 mg PO DAILY amlodipine 5 MG tablet 5 mg PO DAILY pantoprazole 40 MG tablet 40 mg PO DAILY sertraline 25 MG tablet 25 mg PO DAILY miglitol 50 mg Tablet 50 mg PO DAILY Rx Instructions: administer at the beginning of each meal aspirin 81 mg Tablet,Delayed Release (Dr/Ec) 81 mg PO DAILY Referrals / Follow Up: Karla Barton MD [Primary Care Provider] - Within 2 Weeks Ryland Thorpe DO [Med Staff - Active Staff] - Within 2 Weeks Disposition Disposition (needs filled in before D/C Order can be placed): [facility] Charges/Coding Visit Charges Inpatient E&M: 77657 Disch Hosp >30min
== END 2024-07-01 14:12 | disposition skilled nursing facility (03) | DRG 522 ==
LOC: ED 06-26 01:15 → MS3 06-26 02:11
PROVIDERS: Internal Medicine; Student in an Organized Health Care Education/Training Program; Admitting Provider Internal Medicine; Emergency Provider Emergency Medicine; PCP Internal Medicine; Referring Provider Emergency Medicine; Visit Provider Internal Medicine
PROC: 0SRS0JA Replacement of Left Hip Joint, Femoral Surface with Synthetic Substitute, Uncemented, Open Approach (ICD-10-PCS; CPT 27125; principal; 2024-06-27 12:10)
DX: S72.002A Fracture of unspecified part of neck of left femur, initial encounter for closed fracture (principal); D62 Acute posthemorrhagic anemia; I42.6 Alcoholic cardiomyopathy; E87.1 Hypo-osmolality and hyponatremia; F03.90 Unspecified dementia, unspecified severity, without behavioral disturbance, psychotic disturbance, mood disturbance, and anxiety; E11.9 Type 2 diabetes mellitus without complications; I10 Essential (primary) hypertension; I82.462 Acute embolism and thrombosis of left calf muscular vein; F10.20 Alcohol dependence, uncomplicated; E53.8 Deficiency of other specified B group vitamins; F41.8 Other specified anxiety disorders; E87.6 Hypokalemia; K21.9 Gastro-esophageal reflux disease without esophagitis; W19.XXXA Unspecified fall, initial encounter; E83.9 Disorder of mineral metabolism, unspecified; S50.312A Abrasion of left elbow, initial encounter; Z79.82 Long term (current) use of aspirin; E66.3 Overweight; Z79.84 Long term (current) use of oral hypoglycemic drugs; R09.02 Hypoxemia; Z87.891 Personal history of nicotine dependence; Z68.27 Body mass index [BMI] 27.0-27.9, adult; R74.01 Elevation of levels of liver transaminase levels; R50.9 Fever, unspecified; Z79.01 Long term (current) use of anticoagulants; R53.81 Other malaise; Y90.3 Blood alcohol level of 60-79 mg/100 ml; Z11.52 Encounter for screening for COVID-19
CPT/HCPCS: 36415; 70450; 71045; 71260; 72125; 73502; 74177; 80048; 80053; 80076; 80307; 81001; 82077; 82607; 82746; 82962; 83036; 83735; 83930; 83935; 84100; 84145; 84300; 84443; 84550; 85025; 85027; 85610; 85652; 86140; 87631; 87633; 88307; 88311; 90715; 93005; 93970; 94640; 94668; 97116; 97162; 97166; 97530; 97535; 99285; C1776; Q9967; A4216; J1940; J2405

== ENCOUNTER 2024-10-23 18:53 | Emergency (ER) | payer MEDICARE, SELFPAY ==
[2024-10-23 18:54] VITALS: BP 117/60; PULSE 83; RESP 18; TEMP 37; O2SAT 97; BMI 23.1
--- NOTE | 2024-10-23 18:56 | EDS_ITS ---
HPI <SHARON Colon - Last Filed: 10/23/24 21:41> History of Present Illness Chief Complaint: Weakness Narrative Narrative: 84-year-old male with past medical history of HTN, GERD, anxiety, depression, dementia, alcohol abuse presents with generalized weakness. He states over the last 3 days has had pain in the front of both lubrications and his upper abdomen that radiates to his back. Both legs feel weak but he is able to get around and states has been spending time at his camper. He denies exertional chest pain, shortness of breath, cough, palpitations or syncope. He has no fever or chills. He reports normal bladder bowel movements without melena, hematochezia or diarrhea. He drinks a sixpack of alcohol daily. He has a history of hiatal hernia repair. [facility] <SHARON Colon - Last Filed: 10/23/24 21:41> [facility] Medical History Alcohol abuse GERD (gastroesophageal reflux disease) Former tobacco use Anxiety and depression Dementia HTN (hypertension) Home Medications ?Medication ?Instructions ?Recorded ?Last Taken ?Type donepezil 10 mg tablet 10 mg PO DAILY memory Unknown History pantoprazole 40 mg tablet,delayed 40 mg PO DAILY reflu x 05/11/17 Unknown History release sertraline 25 mg tablet 25 mg PO DAILY 11/30/18 Unkn own History aspirin 81 mg tablet,delayed 81 mg PO DAILY 04/28/22 U nknown History release miglitol 50 mg tablet 50 mg PO DAILY 04/28/22 Unkn own History acetaminophen 500 mg tablet 1,000 mg (2 x 500 mg) PO Q 8 #0 tabs 07/01/24 Unknown Rx albuterol sulfate 2.5 mg/3 mL 2.5 mg (3 mL) inhalation Q2H PRN 07/01/24 Unknown Rx (0.083 %) solution for nebulization PRN SOB &/OR WHEEZ ING #0 mL apixaban 5 mg tablet (Eliquis) 5 mg PO BID #180 tabs 0 07/01/24 Unknown Rx calcium carbonate 500 mg (2.5 x 200 mg calcium (500 07/01/24 Unknown Rx mg)) PO TIDCM #0 tabs folic acid 1 mg tablet 1 mg PO DAILY@0800 #0 tabs 0 07/01/24 Unknown Rx food supplemt, lactose-reduced 120 ml PO TIDCM #0 mL 0 07/01/24 Unknown Rx 0.08 gram-1.5 kcal/mL oral liquid (Ensure Plus High Protein) ondansetron HCl 8 mg tablet 8 mg PO Q8H PRN PRN Nausea #0 tabs 07/01/24 Unknown Rx oxycodone 5 mg tablet 5 mg PO Q4H PRN PRN Pain Sco re 07/01/24 Unknown Rx 4-10 3 days #14 tabs potassium chloride 20 mEq 20 meq PO BIDCM #0 tabs 0404/26 Unknown Rx tablet,extended release(part/cryst) sennosides 8.6 mg-docusate sodium 2 tab PO BID #0 tabs 07/01/24 Unknown Rx 50 mg tablet (Stimulant Laxative Plus) thiamine HCl (vitamin B1) 100 mg 100 mg PO DAILYCM #0 tabs 07/01/24 Unknown Rx tablet amlodipine 10 mg tablet 10 mg PO DAILY 10/23/24 Unkn own History Allergy/AdvReac Type Severity Reaction Status Date / Time levofloxacin (From Levaquin) Allergy Vomiting Verified 10/23/24 18:55 Surgical History History of ankle surgery S/P cholecystectomy History of repair of hiatal hernia Social History household members: spouse Smoking Status: Former smoker how long ago did patient quit smoking: Quit 29 years prior, smoked 1 ppd until quit. alcohol intake: current details: Previously reported 12 pack beer weekly, prior suspicions EtOH abuse. substance use type: does not use ROS <SHARON Colon - Last Filed: 10/23/24 21:41> ROS ED ROS Narrative Constitutional: Negative for fever, chills, malaise. CVS: Negative for palpitations, chest pain, syncope. Respiratory: Negative for shortness of breath, cough. GI: Positive for abdominal pain. Negative for vomiting, diarrhea, constipation, melena, hematochezia. : Negative for dysuria, hematuria or frequency. EXAM <SHARON Colon - Last Filed: 10/23/24 21:41> Physical Exam Narrative Exam Narrative: CONST: Patient sitting in no acute distress. EYES: Normal inspection. NECK: Normal inspection. RESP: No respiratory distress, CTAB. CVS: Regular rate and rhythm, no murmur, no gallop. ABD: Old large midline ventral surgical incision from hernia repair. Abdomen soft with epigastric and left upper quadrant tenderness with voluntary guarding. No rebound. No hepatosplenomegaly. Back: Normal inspection, no CVA tenderness. SKIN: Color normal, no rash, warm, dry, intact. EXTREMITIES: Normal appearance, trace bilateral ankle edema. 2+ radial and PT pulses. NEURO: Alert and answering questions appropriately. PSYCH: Normal affect. Const Vital Signs: 10/23/24 18:54 10/23/24 19:05 10/23/24 20:00 Temperature 98.6 F Temperature Source Oral Pulse Rate 83 73 Respiratory Rate 18 13 Respiratory Effort Normal Respiratory Pattern Normal Blood Pressure 117/60 125/71 H Blood Pressure Mean 79 89 Pulse Ox 97 97 Oxygen Delivery Method Room Air Room Air 10/23/24 20:52 Temperature 97.9 F Temperature Source Pulse Rate 78 Respiratory Rate 17 Respiratory Effort Respiratory Pattern Blood Pressure 152/73 H Blood Pressure Mean 99 Pulse Ox 97 Oxygen Delivery Method <Ryan Gamboa MD - Last Filed: 10/23/24 22:43> Physical Exam Const Vital Signs: 10/23/24 18:54 10/23/24 19:05 10/23/24 20:00 Temperature 98.6 F Temperature Source Oral Pulse Rate 83 73 Respiratory Rate 18 13 Respiratory Effort Normal Respiratory Pattern Normal Blood Pressure 117/60 125/71 H Blood Pressure Mean 79 89 Pulse Ox 97 97 Oxygen Delivery Method Room Air Room Air 10/23/24 20:52 Temperature 97.9 F Temperature Source Pulse Rate 78 Respiratory Rate 17 Respiratory Effort Respiratory Pattern Blood Pressure 152/73 H Blood Pressure Mean 99 Pulse Ox 97 Oxygen Delivery Method MDM <SHARON Colon - Last Filed: 10/23/24 21:41> [facility] Narrative Medical decision making narrative: History gathered from: Patient and grandson Differential includes but not limited to diverticulitis, kidney stone, electrolyte derangement, UTI 84-year-old male presents with pain in bilateral ribs and the left flank area and weakness of both legs. He appears well and nontoxic. Vitals are normal. Normal cardiopulmonary exam. Abdomen is soft with left upper quadrant tenderness. There is slight bruising of the left lower abdomen and side. He states [place] and his rib cage/flank hit the gliding chair. No peritoneal signs. He is moving all extremities and neurovascular intact. He reports feeling weak but is up and ambulatory in the department and seems well. Labs show normal white count 5.6. Chronic anemia at 12.1 is actually better than prior. Sodium is low at 126, potassium 3.1, normal renal function and LFTs and lipase. UA negative. EKG is nonischemic and troponin is negative. He does not have chest pain so does not require serial cardiac enzymes. CT scan of the abdomen/pelvis shows a compression fracture of L1 and mildly displaced fracture of the left lateral 10th rib. This is consistent with his area of pain and both injuries are nonoperative and treated with pain control. It also notes mildly dilated loops of small bowel and borderline dilated large bowel which is favored to be ileus. I discussed with the patient and he is having regular bowel movements every other day and had a normal BM this morning. He has had normal p.o. intake and no nausea or vomiting. He has normal bowel sounds on my reexamination so I do not suspect bowel obstruction. He was given IV fluids and p.o. potassium. I offered admission but he declines and would like to go home. He is here with his grandson who states he lives in an apartment and is functional on his own. I advised to use Tylenol or Motrin to treat the pain from his rib fracture. I did not prescribe narcotics since he drinks alcohol daily as he is at high risk for fall. I recommended he see his primary care doctor in the next several days to have a BMP rechecked. He was discharged in stable condition. Lab Data Attestation: I reviewed the patient's lab results. Labs: Laboratory Results - last 24 hr 10/23/24 10/23/24 19:16 19:25 WBC 5.6 RBC 3.63 L Hgb 12.1 L Hct 34.2 L MCV 94.2 H MCH 33.3 H MCHC 35.4 RDW Std Deviation 48.8 H RDW Coeff of Fay 14.0 Plt Count 237 MPV 9.5 Immature Gran % (Auto) 0.200 Neut % (Auto) 56.4 Lymph % (Auto) 30.3 [place] % (Auto) 9.4 Eos % (Auto) 2.5 Baso % (Auto) 1.2 H Absolute Neuts (auto) 3.2 Absolute Lymphs (auto) 1.70 Nucleated RBC % 0 Sodium 126 L Potassium 3.1 L Chloride 93 L Carbon Dioxide 19.2 L Anion Gap 14 BUN 12 Creatinine 0.74 Estim Creat Clear Calc 58.58 Est GFR (MDRD) Non-Af 90 BUN/Creatinine Ratio 15.7 Glucose 75 Calcium 8.2 Total Bilirubin 0.86 AST 26 ALT 12 Alkaline Phosphatase 89 Troponin T High Sens 17 Total Protein 5.7 L Albumin 3.7 Globulin 2.0 L Albumin/Globulin Ratio 1.8 Lipase 52 Urine Color Yellow Urine Clarity Clear Urine pH 6.0 Ur Specific [place] 1.010 Urine Protein 30 H Urine Glucose (UA) Normal Urine Ketones Negative Urine Occult Blood Negative Urine Nitrite Negative Urine Bilirubin Negative Urine Urobilinogen Normal Ur Leukocyte Esterase Negative Urine RBC 0-5 SEEN Urine WBC 0-5 SEEN Ur Squamous Epith Cells 0-5 SEEN Urine Bacteria 0 SEEN Urine Mucus 0 SEEN Radiography Diagnostic Testing: Clinical Impression(s) from Imaging Studies Abdomen/Pelvis CT 10/23/24 19:05 IMPRESSION: 1. Compression fracture of L1 with 60% height loss, and mildly displaced fracture of the left lateral 10th rib, are new since CT on 06/25/2024. 2. Mildly dilated loops of small bowel and borderline dilated large bowel, slightly increased in prominence compared to CT on 06/25/2024. Findings are favored to represent ileus, however if patient has symptoms of bowel obstruction then recommend Surgical consultation. 3. Circumferential bladder wall thickening, correlate with urinalysis for evidence of cystitis. Reading Location: [id number] Chest X-Ray 10/23/24 19:40 IMPRESSION: No acute cardiopulmonary abnormality. Reading Location: [id number] ED attending interpretation of 2 view chest x-ray shows normal heart size, no acute infiltrate, distended colon in the left upper quadrant. EKG Initial EKG: Attestation: I personally reviewed and interpreted this EKG as follows: Interpretation: Sinus Rhythm and No Acute Injury Pattern Comments: Normal sinus rhythm at 72 bpm Normal intervals, no acute ischemic changes <Ryan Reodica, MD - Last Filed: 10/23/24 22:43> [facility] History & Record Review Discussion w/independent historian: Patient Additional record(s) reviewed:: Prior labs (Chronic hyponatremia) Lab Data Labs: Laboratory Results - last 24 hr 10/23/24 10/23/24 19:16 19:25 WBC 5.6 RBC 3.63 L Hgb 12.1 L Hct 34.2 L MCV 94.2 H MCH 33.3 H MCHC 35.4 RDW Std Deviation 48.8 H RDW Coeff of Fay 14.0 Plt Count 237 MPV 9.5 Immature Gran % (Auto) 0.200 Neut % (Auto) 56.4 Lymph % (Auto) 30.3 [place] % (Auto) 9.4 Eos % (Auto) 2.5 Baso % (Auto) 1.2 H Absolute Neuts (auto) 3.2 Absolute Lymphs (auto) 1.70 Nucleated RBC % 0 Sodium 126 L Potassium 3.1 L Chloride 93 L Carbon Dioxide 19.2 L Anion Gap 14 BUN 12 Creatinine 0.74 Estim Creat Clear Calc 58.58 Est GFR (MDRD) Non-Af 90 BUN/Creatinine Ratio 15.7 Glucose 75 Calcium 8.2 Total Bilirubin 0.86 AST 26 ALT 12 Alkaline Phosphatase 89 Troponin T High Sens 17 Total Protein 5.7 L Albumin 3.7 Globulin 2.0 L Albumin/Globulin Ratio 1.8 Lipase 52 Urine Color Yellow Urine Clarity Clear Urine pH 6.0 Ur Specific [place] 1.010 Urine Protein 30 H Urine Glucose (UA) Normal Urine Ketones Negative Urine Occult Blood Negative Urine Nitrite Negative Urine Bilirubin Negative Urine Urobilinogen Normal Ur Leukocyte Esterase Negative Urine RBC 0-5 SEEN Urine WBC 0-5 SEEN Ur Squamous Epith Cells 0-5 SEEN Urine Bacteria 0 SEEN Urine Mucus 0 SEEN Radiography Diagnostic Testing: Clinical Impression(s) from Imaging Studies Abdomen/Pelvis CT 10/23/24 19:05 IMPRESSION: 1. Compression fracture of L1 with 60% height loss, and mildly displaced fracture of the left lateral 10th rib, are new since CT on 06/25/2024. 2. Mildly dilated loops of small bowel and borderline dilated large bowel, slightly increased in prominence compared to CT on 06/25/2024. Findings are favored to represent ileus, however if patient has symptoms of bowel obstruction then recommend Surgical consultation. 3. Circumferential bladder wall thickening, correlate with urinalysis for evidence of cystitis. Reading Location: [id number] Chest X-Ray 10/23/24 19:40 IMPRESSION: No acute cardiopulmonary abnormality. Reading Location: [facility] Treatment and Re-Evaluation :: Dr. Gamboa: I have personally performed a face to face assessment of the patient and have reviewed the WILLIE Note. I performed a substantive portion of the visit including all aspects of the following. My mendez findings include: History is generalized weakness for a few days Exam is afebrile. Vital signs noted. Nontoxic-appearing. Cardiovascular examination regular rate and rhythm. Lungs clear to auscultation bilaterally. Abdomen soft nontender with positive bowel sounds. No guarding or rebound. Neurological examination nonfocal, nonlateralizing. Ambulatory to bathroom in the ED. Medical Decision Making: Check labs. Check CT. Will compare to prior labs history of chronic hyponatremia. Patient motivated for discharge. Discussed observation, but declined. Follow-up primary care. Other additions or changes: [None] Discharge Plan Triage Chief Complaint: Weakness ED Midlevel Provider: Gardenia Milner ED Provider: Ryan Gamboa Dx/Rx/DC Orders Clinical Impression: Fracture of left tenth rib, Closed L1 vertebral fracture, Fall, Generalized weakness, Hypokalemia, Acute hyponatremia, Alcohol abuse Instructions: Hypokalemia Dc, ED Rib Fracture, ED Hyponatremia Prescriptions: No Action donepezil 10 MG tablet 10 mg PO DAILY pantoprazole 40 MG tablet 40 mg PO DAILY sertraline 25 MG tablet 25 mg PO DAILY miglitol 50 mg Tablet 50 mg PO DAILY Rx Instructions: administer at the beginning of each meal aspirin 81 mg Tablet,Delayed Release (Dr/Ec) 81 mg PO DAILY albuterol sulfate 2.5 mg /3 mL (0.083 %) Solution For Nebulization 2.5 mg inhalation Q2H PRN PRN (Reason: SOB &/OR WHEEZING) Qty: 0 0RF acetaminophen 500 mg Tablet 1,000 mg PO Q8 Qty: 0 0RF calcium carbonate 200 mg calcium (500 mg) Tablet,Chewable 500 mg PO TIDCM Qty: 0 0RF Eliquis 5 mg Tablet 5 mg PO BID Qty: 180 0RF Ensure Plus High Protein 0.08 gram-1.5 kcal/mL Liquid 120 ml PO TIDCM Qty: 0 0RF ondansetron HCl 8 mg Tablet 8 mg PO Q8H PRN PRN (Reason: Nausea) Qty: 0 0RF folic acid 1 mg Tablet 1 mg PO DAILY@0800 Qty: 0 0RF oxycodone 5 mg Tablet 5 mg PO Q4H PRN PRN (Reason: Pain Score 4-10) 3 Days Qty: 14 0RF sennosides-docusate sodium [Stimulant Laxative Plus] 8.6-50 mg Tablet 2 tab PO BID Qty: 0 0RF potassium chloride 20 mEq Tablet,Er Particles/Crystals 20 meq PO BIDCM Qty: 0 0RF thiamine HCl (vitamin B1) 100 mg Tablet 100 mg PO DAILYCM Qty: 0 0RF amlodipine 10 mg tablet 10 mg PO DAILY Primary Care Provider: Karla Barton Referrals: Karla Barton MD [Primary Care Provider] - Activity Restrictions/Additional Instructions: Your sodium and potassium levels were low. I recommend you see your primary care doctor in the next few days to have this rechecked. You also have a fracture of the L1 and your spine and the left 10th rib which explains your pain. Take Tylenol Motrin as needed. Print Language: Tamazight Disposition Disposition: Home, Self Care Discharge Date/Time: 10/23/24 21:16
--- NOTE | 2024-10-23 19:05 | CT_ITS ---
PROCEDURE: ABDOMEN/PELVIS W IV CONT ONLY 10/23/2024 REASON FOR EXAM: EPIGASTRIC/LUQ PAIN TECHNIQUE: ABDOMEN/PELVIS W IV CONT ONLY Coronal and Sagittal reconstruction series were provided. CONTRAST: Isovue 370 VOLUME: 75 mL One or more dose reduction techniques were used (e.g., Automated exposure control, adjustment of the mA and/or kV according to patient size, use of iterative reconstruction technique. RADIATION DOSE SUMMARY: CTDlvol: 16.6 mGy DLP: 534 mGycm COMPARISON: CT abdomen and pelvis 06/25/2024 FINDINGS: Lung bases: No focal consolidation. Mild coronary calcifications. Small hiatal hernia. Liver: Unchanged intrahepatic biliary ductal dilatation. Gallbladder: Surgically absent. Spleen: Scattered calcifications suggestive of prior granulomatous disease Pancreas: Normal size without evidence of mass surrounding inflammation or ductal dilation. Adrenals: Unremarkable Kidneys: No hydronephrosis. Extrarenal pelvis on the left similar to prior. Punctate stone in the lower pole of the left kidney is unchanged. Subcentimeter hypodensities are too small to characterize. Bladder: Circumferential wall thickening, unchanged Reproductive Organs: Prostatomegaly Bowel: Loops of small bowel measure up to 3.6 cm in diameter, slightly increased in conspicuity compared to CT on 06/25/2024. Air-filled transverse colon measures up to 5.8 cm in diameter, with transition to normal caliber descending colon. Appendix is unremarkable. Lymph nodes: No suspicious lymph node enlargement. Vasculature: Diffuse atherosclerotic calcifications are noted. Bones: There is a compression deformity of L1 with approximately 60% height loss and 2 mm retropulsion of fracture fragments, new since 06/25/2024. Mildly displaced fracture of the left lateral 10th rib, also new. Left hip arthroplasty. Degenerative changes of the spine. Grade 1 retrolisthesis of L2 on L3 is unchanged. CT/Abdomen/Pelvis W IV Cont ONLY IMPRESSION: 1. Compression fracture of L1 with 60% height loss, and mildly displaced fract ure of the left lateral 10th rib, are new since CT on 06/25/2024. 2. Mildly dilated loops of small bowel and borderline dilated large bowel, slig htly increased in prominence compared to CT on 06/25/2024. Findings are favored to represent ileus, however if patient has sym ptoms of bowel obstruction then recommend Surgical consultation. 3. Circumferential bladder wall thickening, correlate with urinalysis for evid ence of cystitis. Reading Location: [facility]
--- NOTE | 2024-10-23 19:05 | EKG12_ITS ---
Test Reason : DYSRHYTHMIA Blood Pressure : */* mmHG Vent. Rate : 72 BPM Atrial Rate : 72 BPM P-R Int : 166 ms QRS Dur : 84 ms QT Int : 408 ms P-R-T Axes : 41 2 42 degrees QTcB Int : 446 ms Normal sinus rhythm Normal ECG Confirmed by BLESSING RM, CHAD ([id number]), manager editorial JAMAR WORRELL ([id number]) on 10/27/2024 9:42:35 AM Referred By: Confirmed By: CHAD FUNK MD
[2024-10-23] MEDS: 0.9% Normal Saline (1000mL) 1,000 ML 999 ML IV (19:23)
[2024-10-23 19:34] LABS: Hematocrit 34.2 % (40-54); Hemoglobin 12.1 g/dL (13.0-16.5); Immature Granulocytes Count 0.010 X10^3/uL (0.0-0.0); Mean Corp Hgb Conc 35.4 g/dL (32-36); Mean Corpuscular Volume 94.2 fL (80-94); Mean Platelet Vol. 9.5 fl (6.2-12.0); NRBC Flagged by Analyzer 0 % (0-5); Platelet Count 237 K/mm3 (150-450); RBC Distribution Width CV 14.0 % (11.6-14.6); RBC Distribution Width SD 48.8 fl (35.1-43.9); Red Blood Count 3.63 M/mm3 (4.6-6.2); White Blood Count 5.6 K/mm3 (4.4-11.0)
[2024-10-23 19:37] LABS: Mucous, Urine 0 SEEN /hpf (<or=2+)
[2024-10-23 19:40] LABS: Color, Urine Yellow (Yellow); Glucose, Dipstick Normal (Normal); Ketone-Dipstick Negative (Negative); Leukocyte Esterase-Dipstick Negative /ul (Negative); Nitrite-Dipstick Negative (Negative); Occult Blood-Urine Negative /ul (Negative); Protein-Dipstick 30 mg/dl (Negative); Specific Gravity, Urine 1.010 (1.002-1.030); Urine Bilirubin Dipstick Negative (Negative)
--- NOTE | 2024-10-23 19:40 | RAD_ITS ---
PROCEDURE: CHEST PA AND LATERAL 10/23/2024 REASON FOR EXAM: WEAKNESS TECHNIQUE: CHEST PA AND LATERAL COMPARISON: CT abdomen and pelvis 10/23/2024, chest radiograph 06/26/2024 FINDINGS: Hardware: None Mediastinum: The mediastinal contour is unremarkable. Aortic atherosclerosis. Lungs: No focal consolidation or pleural effusion. Bones: Degenerative changes are identified within the thoracic spine. Surgical clips in the right upper quadrant of the abdomen. Prominent loops of air-filled bowel in the upper abdomen are better evaluated on same date CT. RAD/Chest PA and Lateral IMPRESSION: No acute cardiopulmonary abnormality. Reading Location: [id number]
[2024-10-23 19:48] LABS: AST(SGOT) 26 U/L (<=37); Alanine Aminotransfer ALT/SGPT 12 U/L (<=46); Albumin, Serum 3.7 g/dL (3.4-4.8); Alkaline Phosphatase 89 U/L (40-129); Anion Gap 14 (5-15); BUN 12 mg/dL (4-19); BUN/Creat Ratio 15.7 RATIO (10-20); Calcium,Total 8.2 mg/dL (7.6-11.0); Carbon Dioxide 19.2 mmol/L (21.0-32.0); Chloride 93 mmol/L (98-108); Estimated Creatinine Clearance 58.58 ml/min (50-250); Globulin 2.0 g/dL (2.2-4.2); Glucose 75 mg/dL (70-99); Lipase 52 U/L (13-75); Potassium 3.1 mmol/L (3.3-5.1); Troponin T High Sensitivity 17 ng/L (<=22)
[2024-10-23 20:00] VITALS: BP 125/71; PULSE 73; RESP 13; O2SAT 97
[2024-10-23] MEDS: Potassium Chloride Oral Tablet 20 MEQ 40 MEQ PO (20:01)
[2024-10-23 20:26] LABS: Red Blood Cells-Urine 0-5 SEEN /hpf (0-5); Squamous Epithelial Cells - UA 0-5 SEEN /hpf (0-5)
[2024-10-23 20:52] VITALS: BP 152/73; PULSE 78; RESP 17; TEMP 36.6; O2SAT 97
== END 2024-10-23 21:16 | disposition home or self-care (01) ==
PROVIDERS: Physician Assistant; Emergency Provider Emergency Medicine; PCP Internal Medicine; Visit Provider Emergency Medicine
DX: S22.32XA Fracture of one rib, left side, initial encounter for closed fracture (principal); S32.019A Unspecified fracture of first lumbar vertebra, initial encounter for closed fracture; F03.90 Unspecified dementia, unspecified severity, without behavioral disturbance, psychotic disturbance, mood disturbance, and anxiety; E87.1 Hypo-osmolality and hyponatremia; F10.10 Alcohol abuse, uncomplicated; E87.6 Hypokalemia; Z87.891 Personal history of nicotine dependence; F41.9 Anxiety disorder, unspecified; D64.9 Anemia, unspecified; I10 Essential (primary) hypertension; K21.9 Gastro-esophageal reflux disease without esophagitis; F32.A Depression, unspecified; Z79.899 Other long term (current) drug therapy; W01.190A Fall on same level from slipping, tripping and stumbling with subsequent striking against furniture, initial encounter; Y92.833 Campsite as the place of occurrence of the external cause
CPT/HCPCS: 71046; 74177; 80053; 81001; 83690; 84484; 85025; 93005; 96361; 96374; 96375; 99282; Q9967; A4216; J2405